=== PATIENT | male | born 1955 | race Caucasian/White ===

== ENCOUNTER 2023-04-10 18:23 | Inpatient (IN) ==
--- OUTSIDE RECORDS SUMMARY | 2023-04-10 18:30 | External Medical Summary | Summary of Care ---
Author Name Unknown Organization [facility] Address [address] [facility] [place] [address] Phone [phone] Care Team Providers Care Track Production Engineer Name Role Phone Isak August DO Primary Care Provider Reason for Visit * Reason Comments Fever Pt began with fever up to 103.5 yesterday. Cough and SOB present and irritated throat per pt. X 1-2 days ago. Pt questions if related to getting his Zemeta infusion on 04/02/2023. Encounter Details Date Type Department Care Team (Latest Contact Info) Description 04/08/2023 11:20 AM EST Office Visit Family Practice [facility] [address] [facility] [place] [address] Isak August DO [address] [facility] [place] [address] Person under investigation for COVID-19*; Bronchitis, complicated; Diabetes mellitus without complication (HCC); HTN, goal below 140/90; Metastatic castration-sensitive adenocarcinoma of prostate Allergies Active Allergy Reactions Criticality Noted Date Comments Erythromycin Other (Please comment) 11/14/1997 Swelling and redness of arms after Erythromycin IV for pneumonia Hydrochlorothiazide Other (Please comment) 06/17/2017 Gout flare Indomethacin Other (Please comment) 11/17/2017 [place] out of body when taking. Influenza Virus Vacc 01/29/2011 Had flu like reaction after taking it. documented as of this encounter (statuses as of 04/08/2023) Medications Medication Sig Dispensed Refills Start Date End Date Status Zoledronic Acid 4 MG/100ML Intravenous Solution Administer 4 mg intravenously once. 0 Active Naproxen 500 MG Oral Tablet (Naprosyn)Indication s:Right flank pain Take 1 Tablet by mouth 2 times a day as needed (pain). 40 Tablet 1 07/03/2022 Active Rosuvastatin Calcium 40 MG Oral Tablet (Crestor)Indications :Dyslipidemia, goal LDL below 100 Take 1 Tablet by mouth in the morning. 90 Tablet 3 10/29/2022 Active Lisinopril 40 MG Oral Tablet Take 1 Tablet by mouth in the morning. 90 Tablet 3 10/29/2022 Active Carvedilol 3.125 MG Oral Tablet (Coreg)Indications:H TN, goal below 140/90 Take 1 Tablet by mouth in the morning and 1 Tablet before bedtime. With food.. 180 Tablet 3 10/29/2022 Active Allopurinol 300 MG Oral Tablet (Zyloprim)Indication s:Idiopathic chronic gout of foot without tophus, unspecified laterality Take 1 Tablet by mouth in the morning. 90 Tablet 3 10/29/2022 Active Albuterol Sulfate HFA 108 (90 Base) MCG/ACT Inhalation Aerosol SolutionIndications: Asthma, allergic, unspecified asthma severity, uncomplicated USE 2 INHALATIONS EVERY 4-6 HOURS NEEDED for asthma 54 g 1 10/29/2022 Active Montelukast Sodium 10 MG Oral Tablet (Singulair)Indicatio ns:Mild intermittent extrinsic asthma without complication Take 1 Tablet by mouth in the morning. 90 Tablet 3 12/05/2022 Active Erleada 60 MG Oral Tablet (Apalutamide)Indicat ions:Metastatic castration-sensitive adenocarcinoma of prostate TAKE 4 TABLETS (240 MG) DAILY. TAKE WITH OR WITHOUT FOOD 120 Tablet 5 12/25/2022 Active Silodosin 8 MG Oral Capsule (Rapaflo) Take 1 Capsule by mouth in the morning. 30 Capsule 6 12/25/2022 Active documented as of this encounter (statuses as of 04/08/2023) Active Problems Problem Noted Date Diagnosed Date Metastatic castration-sensitive adenocarcinoma o f prostate 01/09/2022 Bone lesion 10/29/2021 Slowing of urinary stream 10/29/2021 Diabetes mellitus without complication 9 Idiopathic chronic gout of foot without tophus 0 08/10/2017 Other seasonal allergic rhinitis 12/18/2014 BMI 37.0-37.9, adult 10/30/2009 Overview: 262 lb Dyslipidemia, goal LDL below 100 07/25/2009 FAMILY HX OF PANCREATIC CANCER-father 06/13/2006 ADVANCE DIRECTIVE INFORMATION 08/13/2005 Overview: No, Advance Directive brochure given to patient at prior appointment. DEVIATED NASAL SEPTUM 07/02/2005 Dyspnea and respiratory abnormality 06/25/2005 Overview: ICD-10 update of inactive term HTN, goal below 140/90 09/08/2000 documented as of this encounter (statuses as of 04/08/2023) Resolved Problems Problem Noted Date Diagnosed Date Resolved Date Elevated prostate specific antigen (PSA) 10/29/2021 05/29/2022 Prediabetes 07/01/2017 01/29/2019 Overview: Per Prediabetes protocol #1 Gout 06/09/2012 11/21/2020 Dyslipidemia, goal to be determined 05/01/2009 07/25/2009 Overview: Per Lipid Taxonomy. ALLERGIC RHINITIS NOS 06/25/20052014 Chronic rhinitis 04/11/2001 06/25/2005 Mixed dyslipidemia 9 Overview: Per Lipid Taxonomy. TOBACCO USE DISORDER - chew 06/15/2007 documented as of this encounter (statuses as of 04/08/2023) Immunizations Name Administration Dates Next Due Seasonal Influenza, Split, IIV3, With Preserve, Inj 04/08/2001 TD - Tetanus/Diptheria (ADULT) 09/08/2000 TDAP (age 10 and older)(Boostrix) 02/04/2020 02/03/2030 TDAP (age 11 and older)(Adacel) 01/26/2010 documented as of this encounter Social History Tobacco Use Types Packs/Day Years Used Date Smoking Tobacco: Former Cigarettes 4 Q uit: 05/19/1979 Smokeless Tobacco: Former Chew Quit: 04/09/2005 Comments:Quit chew 04-09-05. Smoked cigarettes for 4 yrs. quit in 1979 Alcohol Use Standard Drinks/Week Comments No 0 (1 standard drink = 0.6 oz pur e alcohol) PHQ-2 Answer Date Recorded PHQ Adult Total Score 0 12/05/2022 Sex and Gender Information Value Date Recorded Sex Assigned at Not on file Gender Identity Not on file Sexual Orientation Not on file Job Start Date Occupation Industry Not on file Not on file Not on file documented as of this encounter Last Filed Vital Signs Vital Sign Reading Time Taken Comments Blood Pressure - - Pulse 125 04/08/2023 11:12 AM EST Temperature 38.6 C (101.5 F) 04/08/2023 11:12 AM EST Respiratory Rate 24 04/08/2023 11:12 AM EST Oxygen Saturation 94% 04/08/2023 11:12 AM EST Inhaled Oxygen Concentration - - Weight 120.2 kg (265 lb) 04/08/2023 11:12 AM EST Height - - Body Mass Index 38.02 04/02/2023 2:11 PM EST documented in this encounter Progress Notes * Isak August, - 04/08/2023 11:18 AM EST Images from the original note were not included. Assessment and Plan Person under investigation for COVID-19 Acute respiratory infection with cough, SOB and fevers Slightly depressed/suppressed O2 sats Will get CXR as well to r/o acute pneumonia - XR CHEST 2 VIEWS Bronchitis, complicated - XR CHEST 2 VIEWS Diabetes mellitus without complication (HCC) Stable Due for f/u labs per routine HTN, goal below 140/90 stable Metastatic castration-sensitive adenocarcinoma of prostate Ongoing monitoring History of Present Illness Mikhail Ryo is a 67 year old male that presents for Fever (Pt began with fever up to 103.5 yesterday. Cough and SOB present and irritated throat per pt. X 1-2 days ago. Pt questions if related togetting his Zemeta infusion on 04/02/2023.) Acute URI/flu type symptoms For the last few days No home testing performed Cough/SOB Physical Exam Vitals: 04/08/23 1112 Temp: (!) 38.6 C (101.5 F) Pulse: 125 Resp: 24 SpO2: 94% Physical Exam Constitutional: Appearance: Normal appearance. HENT: Head: Normocephalic and atraumatic. Right Ear: Ear canal and external ear normal. Left Ear: Ear canal and external ear normal. Nose: Mucosal edema, congestion and rhinorrhea present. Eyes: Extraocular Movements: Extraocular movements intact. Conjunctiva/sclera: Conjunctivae normal. Pupils: Pupils are equal, round, and reactive to light. Cardiovascular: Rate and Rhythm: Normal rate and regular rhythm. Heart sounds: No murmur heard. No friction rub. No gallop. Pulmonary: Effort: Pulmonary effort is normal. No tachypnea, respiratory distress or retractions. Breath sounds: Transmitted upper airway sounds present. Wheezing present. Abdominal: General: Abdomen is flat. Bowel sounds are normal. Palpations: Abdomen is soft. Musculoskeletal: General: Normal range of motion. Cervical back: Neck supple. Lymphadenopathy: Cervical: Cervical adenopathy present. Skin: General: Skin is warm. Neurological: General: No focal deficit present. Mental Status: He is alert and oriented to person, place, and time. Psychiatric: Mood and Affect: Mood normal. Behavior: Behavior normal. Wrap-Up Time: Total time today was 40 minutes excluding any time spent in the performance of separately billed services. documented in this encounter Plan of Treatment Upcoming Encounters Date Type Department Care Team (Late st Contact Info) Description 04/30/2023 2:00 PM EST Laboratory Laboratory [facility] [place] [address] [place] [id number] [place], Lab [address] [place] [id number] 04/30/2023 3:00 PM EST Hem/Onc Treatment Hematology/Oncology Treatment, [place] [address] [place] [address] Subha, Chair [address] Hem Onc Scen[address] [place] [address] 05/28/2023 2:00 PM EST Laboratory Laboratory [facility] [place] [address] [place] [id number] [place], Lab Scenery [address] [place] [address] [id number] 05/28/2023 3:00 PM EST Hem/Onc Treatment Hematology/Oncology Treatment, [place] [address] [place], [place] [address] Subha, Chair [address] Hem Onc Scenery [address] [place] [address] 06/09/2023 9:00 AM EST Office Visit Family Practice [facility] [address] [facility] [place] [address] Lakisha Mclain CRNP [address] [place] [address] 07/02/2023 10:15 AM EST Office Visit Urology, [facility] [address] [facility] [place] [address] Erik Benitez MD [address] [facility] [address] [place] [address] 12/11/2023 8:20 AM EDT Office Visit [facility] [address] [facility] [place] [address] Isak August DO [address] [facility] [place] [address] Pending Results Name Type Priority Associated Diagnoses Date /Time XR CHEST 2 VIEWS Medical Imaging STAT Person under investigation for COVID-19 Bronchitis, complicated 04/08/2023 11:38 AM EST INFLUENZA A/B RSV SARS-COV2,PCR Lab Routine Person under investigation for COVID-19 04/08/2023 11:55 AM EST Scheduled Orders Name Type Priority Associated Diagnoses Orde r Schedule INFLUENZA A/B RSV SARS-COV2,PCR Lab Routine Person under investigation for COVID-19 Expected: 04/08/2023 (Approximate), Expires: 04/07/2024 Health Maintenance Due Date Last Done Comments COVID-19 Vaccine (#1) 1960 Pneumococcal Vaccine: 65+ Years (1 - PCV) 08/27/1963 Zoster Vaccines (1 of 2) 1976 Cologuard 2002 Colonoscopy 2002 Fecal Occult Blood Test 2002 Sigmoidoscopy 2002 Hepatitis B (1 of 3 - Risk 3-dose series) 2017 AAA Screening 2022 Albumin/Creatinine Ratio 05/29/2023 05/29/2022 HbA1c 06/13/2023 12/11/2022, 05/19, 10/23/2021, Additional history exists Diabetic Eye Exam 08/01/2023 07/31/2022, , 05/04/2019 Depression Screening 12/06/2023 12/05/2022 Diabetic Foot Exam 12/06/2023 12/05/2022, 0 12/05/2022, 11/22/2021, Additional history exists GFR 04/02/2024 04/02/2023, 02/16, 02/05/2023, Additional history exists Lipid Panel 08/22/2027 08/21/2022, 05/19, 10/23/2021, Additional history exists DTaP,Tdap,and Td Vaccines (3 - Td or Tdap) 02/03/2030 02/04/2020, 01/26/2010, 09/08/2000 Colorectal Cancer Screening Discontinued GARDASIL-HPV IMMUNIZATION SERIES Aged Out No longer eligible based on patient's age to complete this topic MENINGOCOCCAL (MENACTRA/MENVEO) Aged Out No longer eligible based on patient's age to complete this topic documented as of this encounter Medical Devices Not on filedocumented as of this encounter Visit Diagnoses Diagnosis Person under investigation for COVID-19- Primary Bronchitis, complicated Bronchitis, not specified as acute or chronic Diabetes mellitus without complication (HCC) Type II or unspecified type diabetes mellitus without mention of complication, not stated as uncontrolled HTN, goal below 140/90 Unspecified essential hypertension Metastatic castration-sensitive adenocarcinoma of prostate documented in this encounter Care Teams Track Production Engineer Relationship Specialty Start Date End Date Isak August DO [address] [place] [address] PCP - General Family Medicine 11/21/20 documented as of this encounter
--- OUTSIDE RECORDS SUMMARY | 2023-04-10 18:30 | External Medical Summary ---
Author Name Unknown Address Unknown Organization [id number] [address] [place] [address] Laboratory Report Ordering Provider Test Date Status SLIM KAYE 04/08/2023 11:55:12 Final Observation Date Value Abnormality Reference (Units ) Status SARS Coronavirus 2 04/08/2023 11:55:12 Negative N egative Final No SARS-CoV2 Coronavirus RNA detected by PCR (amplified probe).
This express test was developed and its performance characteristics determined by [facility]. It has not been cleared or approved by the U.S. Food and Drug Administration (FDA). FDA does not require this test to go thru premarket FDA review. This test is used for clinical purposes. It should not be regarded as investigational or for research. This laboratory is certified under the Clinical Laboratory Improvement Amendments (CLIA) as qualified to perform high complexity clinical laboratory testing.

This test is a nucleic acid amplification test (NAAT), a reverse transcriptase polymerase chain reaction (RT-PCR) test, or a Centers for Disease Control-acceptable equivalent. The test is performed in a high complexity Clinical Laboratory Improvement Amendments-(CLIA) certified laboratory. The test is acceptable for SARS-CoV-2 diagnosis, surveillance, and travel within the [place] and to most countries. Please check with local testing authorities about requirements before travel.

The validation of bronchial specimens, tracheal aspirates, and sputum for this assay was developed and performance characteristics determined by [facility]. The validation of alternate specimen types has not been cleared or approved by the U.S. Food and Drug Administration (FDA). It has been determined that such clearance is not necessary. Influenza virus A RNA [Prese nce] in Specimen by [facility] with probe detection 04/08/2023 11:55:12 Negative Negative Final No Influenza A RNA detected by PCR (amplified probe) Influenza virus B RNA [Prese nce] in Specimen by [facility] with probe detection 04/08/2023 11:55:12 Negative Negative Final No Influenza B RNA detected by PCR (amplified probe) Respiratory syncytial virus RNA [Identifier] in Specimen by [facility] with probe detection 04/08/2023 11:55:12 Negative Negative Final No Respiratory Syncytial Vir us RNA detected by PCR (amplified probe) Performing Location [facility] [address] [place] [place] [address]
--- OUTSIDE RECORDS SUMMARY | 2023-04-10 18:30 | External Medical Summary | Summary of Care ---
Author Name Unknown Organization [facility] Address [address] [facility] [place] [address] Phone [phone] Care Team Providers Care Briquetting Machine Operator Name Role Phone Isak August Primary Care Provider Reason for Visit * Reason Comments Chemotherapy Chemo/recheck Encounter Details Date Type Department Care Team (Late st Contact Info) Description 04/02/2023 2:15 PM EST Office Visit Hematology/Oncology [facility] [address] [facility] [place] [address] Cecy Skinner MD [address] [facility] [place] [address] Metastatic castration-sensitive adenocarcinoma of prostate * Allergies Active Allergy Reactions Criticality Noted Date Comments Erythromycin Other (Please comment) 11/14/1997 Swelling and redness of arms after Erythromycin IV for pneumonia Hydrochlorothiazide Other (Please comment) 06/17/2017 Gout flare Indomethacin Other (Please comment) 11/17/2017 Mcgrann out of body when taking. Influenza Virus Vacc 01/29/2011 Had flu like reaction after taking it. documented as of this encounter (statuses as of 04/02/2023) Medications Medication Sig Dispensed Refills Start Date End Date Status Zoledronic Acid 4 MG/100ML Intravenous Solution Administer 4 mg intravenously once. 0 Active Naproxen 500 MG Oral Tablet (Naprosyn)Indicatio ns:Right flank pain Take 1 Tablet by mouth 2 times a day as needed (pain). 40 Tablet 1 3 Active Rosuvastatin Calcium 40 MG Oral Tablet (Crestor)Indication s:Dyslipidemia, goal LDL below 100 Take 1 Tablet by mouth in the morning. 90 Tablet 3 3 Active Lisinopril 40 MG Oral Tablet Take 1 Tablet by mouth in the morning. 90 Tablet 3 3 Active Carvedilol 3.125 MG Oral Tablet (Coreg)Indications: HTN, goal below 140/90 Take 1 Tablet by mouth in the morning and 1 Tablet before bedtime. With food.. 180 Tablet 3 3 Active Allopurinol 300 MG Oral Tablet (Zyloprim)Indicatio ns:Idiopathic chronic gout of foot without tophus, unspecified laterality Take 1 Tablet by mouth in the morning. 90 Tablet 3 3 Active Albuterol Sulfate HFA 108 (90 Base) MCG/ACT Inhalation Aerosol SolutionIndications :Asthma, allergic, unspecified asthma severity, uncomplicated USE 2 INHALATIONS EVERY 4-6 HOURS NEEDED for asthma 54 g 1 3 Active Montelukast Sodium 10 MG Oral Tablet (Singulair)Indicati ons:Mild intermittent extrinsic asthma without complication Take 1 Tablet by mouth in the morning. 90 Tablet 3 3 Active Erleada 60 MG Oral Tablet (Apalutamide)Indica tions:Metastatic castration-sensitiv e adenocarcinoma of prostate TAKE 4 TABLETS (240 MG) DAILY. TAKE WITH OR WITHOUT FOOD 120 Tablet 5 3 Active Silodosin 8 MG Oral Capsule (Rapaflo) Take 1 Capsule by mouth in the morning. 30 Capsule 6 3 Active Tamsulosin HCl 0.4 MG Oral Capsule (Flomax) Take 1 Capsule by mouth in the morning. 90 Capsule 3 3 04/02/20 23 Discontinu ed(Medicat ion List Clean Up) glipiZIDE 5 MG Oral Tablet (Glucotrol)Indicati ons:Bronchitis, complicated Take 1 Tablet by mouth in the morning. 30 minutes before a meal.. 5 Tablet 0 3 04/02/20 23 Discontinu ed(Medicat ion List Clean Up) documented as of this encounter (statuses as of 04/02/2023) Active Problems Problem Noted Date Diagnosed Date [...] as of this encounter (statuses as of 04/02/2023) Resolved Problems Problem Noted Date Diagnosed Date [...] as of this encounter (statuses as of 04/02/2023) Immunizations Name Administration Dates Next Due TDAP (age 10 and older)(Boostrix) 02/04/2020 02/03/2030 TDAP (age 11 and older)(Adacel) 01/26/2010 documented as of this encounter Social History Tobacco Use Types Packs/Day Years Used Date Smoking Tobacco: Former Cigarettes 4 Q uit: 05/19/1979 Smokeless Tobacco: Former Chew Quit: 04/09/2005 Tobacco Cessation:Counseling Given: Not Answered Comments:Quit chew 04-09-05. Smoked cigarettes for 4 [...] Sign Reading Time Taken Comments Blood Pressure 126/84 04/02/2023 2:11 PM EST Pulse 95 04/02/2023 2:11 PM EST Temperature 36.8 C (98.2 F) 04/02/2023 2:11 PM ES T Respiratory Rate 16 04/02/2023 2:11 PM EST Oxygen Saturation 95% 04/02/2023 2:11 PM EST Inhaled Oxygen Concentration - - Weight 121.8 kg (268 lb 9.6 oz) 04/02/2023 2:11 PM EST Height 177.8 cm (5' 10") 04/02/2023 2:11 PM EST Body Mass Index 38.54 04/02/2023 2:11 PM EST documented in this encounter Progress Notes * Cecy Skinner MD - 04/02/2023 2:37 PM EST Outpatient Consult Note Data Source: Patient, Epic record. Data Source: Patient, Epic record. 04/02/2023 2:37 PM Mikhail Rosario Kirill [id number] 67 year old Patient Encounter: HEMATOLOGY/ONCOLOGY [facility] Cancer Diagnosis: Prostate cancer with elevated PSA. Patient has metastatic castration sensitive disease. Current Treatment: Eligard plus apalutamide and Zometa. Apalutamide was started on 02/25/2022 Previous Treatment: Casodex and Eligard Oncologic History : 67-year-old male recently presented with complaint of increasing back pain for last 3-4 weeks. Patient has history of chronic back pain which got worse recently. His job is associated with heavy lifting and causes back pain as well, therefore he tended to ignore it over time. He has taken Naproxyn. Denies any dizziness, blurred vision, chest pain, shortness breath palpitation abdominal pain or distention bleeding, bruising, nausea, vomiting, weakness or numbness in the lower extremity, fever, night sweats, weight loss, hematuria, hematochezia. A CT scan of the abdomen pelvis done on 10/23/2021 which revealed mildly prominent prostate, scattered sclerotic lesions, which may represent bone metastases. PSA level was 195.20 Patient was seen by Dr. Benitez from Urology. Dr. Benitez also started him on Casodex. PET scan done on 10/31/2021 which revealed sclerotic lesion in the right ilium demonstrates low-grade metabolic activity with an SUV max of 4.7. The sclerotic lesions in the T10 and L1 vertebral bodies demonstrates background metabolic activity with SUV max of 3.5. There is a sclerotic lesion in the posterior right 6th rib with background metabolic activity. Biopsy from the prostate is consistent for prostatic adenocarcinoma Gallant score 3+4=7 A Left base 1 1.6 Prostatic adenocarcinoma cribriform 3+4=7(4:40%) B Left mid 1 2.2 Prostatic adenocarcinoma 3+4=7(4:30%) C Left apex 1 2.2 Prostatic adenocarcinoma; minor cribriform pattern 3+4=7(4:20%) D Right base 1 1.5 Prostatic adenocarcinoma 4+3=7 (4:70%) 80% E Right mid 1 1.5 Prostatic adenocarcinoma 4+3=7 (4:85%) F Right apex 1 1.8 Benign, acute inflammation CORES with CARCINOMA = 5 (5/6) cores He also received a dose of Lupron on 11/28/2021. Patient denies smoking. He drinks socially. Family history significant for father was diagnosed pancreatic cancer. Brother was diagnosed of prostate cancer. He was also seen by the Radiation Oncology and plan was to follow the patient clinically and continue with current treatment. Bone scan was done on 12/12/2021 which again revealed multiple foci of abnormal radiotracer uptake consistent with osteoblastic metastatic disease. Interval History: He continue taking apalutamide with good tolerance and without any significant side effects toxicity. Overall clinically he is doing well without any new symptoms. Patient denies any headache, dizziness, blurred vision, chest pain, shortness breath palpitation abdominal pain or distention, bleeding, bruising, nausea, vomiting, fever, night sweats, weight loss, hematuria, hematochezia. LABS/IMAGING: Results for orders placed or performed in visit on 04/02/23 COMPREHENSIVE METABOLIC PANEL Result Value Ref Range BUN 17 6 - 20 mg/dL Creatinine 0.8 0.6 - 1.2 mg/dL Estimated Glomerular Filtration Rate >90 >=60 mL/min Sodium 135 135 - 146 mmol/L Potassium 4.5 3.5 - 5.1 mmol/L Chloride 97 (L) 98 - 107 mmol/L CO2 27 22 - 32 mmol/L Anion Gap 11 7 - 15 mmol/L Glucose 340 (H) 70 - 120 mg/dL Albumin 4.3 3.8 - 5.0 g/dL AST 27 10 - 50 U/L Alkaline Phosphatase 66 35 - 130 U/L Bilirubin, Total 0.2 <=1.2 mg/dL Calcium 9.8 8.4 - 10.2 mg/dL Protein 6.8 6.0 - 8.3 g/dL ALT 34 10 - 50 U/L CBC Result Value Ref Range WBC 7.17 4.00 - 10.80 K/uL RBC 4.24 4.50 - 5.25 M/uL HGB 12.8 (L) 14.0 - 16.8 g/dL HCT 37.7 (L) 40.0 - 48.4 % MCV 88.9 82.0 - 99.5 fL MCH 30.2 27.0 - 34.0 pg MCHC 34.0 32.0 - 36.0 g/dL RDW 12.4 11.5 - 15.5 % PLT 186 140 - 400 K/uL MPV 11.0 6.6 - 11.1 fL DIFFERENTIAL, AUTOMATED Result Value Ref Range WBC 7.17 4.00 - 10.80 K/uL Neutrophils % 56.0 40.0 - 75.0 % Lymphocytes % 31.9 18.0 - 42.0 % Monocytes % 7.9 1.0 - 11.0 % Eosinophils % 3.6 0.0 - 6.0 % Basophils % 0.6 0.0 - 2.0 % Absolute Neutrophils 4.01 1.80 - 7.70 K/uL Absolute Lymphocytes 2.29 1.00 - 4.80 K/ul Absolute Monocytes 0.57 0.00 - 1.10 K/uL Absolute Eosinophils 0.26 0.00 - 0.70 K/uL Absolute Basophils 0.04 0.00 - 0.20 K/uL All his blood counts are in acceptable range with decreasing PSA level. REVIEW OF SYSTEMS: General: No Fever, chills, night sweats, or weight loss. HEENT: No change in visual acuity, blurred or double vision. No epistaxis, facial pain, nasal discharge or change in hearing. Denies dysphagia, no muscosal ulceration, or sores noted. Cardiovascular: No chest pain, BISHOP, or palpitations Respiratory: No shortness of breath, cough, hemoptysis, or pleuritic chest pain Gastrointestinal: No abdominal pain, nausea, vomiting, diarrhea, rectal pain or bleeding Genitourinary: Denies Hematuria or dysuria Musculoskeletal: No bone pain Psychiatric: No vegetative signs of depression Endocrine: No symptoms of hypothyroidism or hyperglycemia Hematologic: No bleeding or lymph nodes noted As mentioned above, all of the systems were reviewed in full and are unremarkable. No past medical history on file. Current Outpatient Medications Medication Sig Dispense Refill Rosuvastatin Calcium 40 MG Oral Tablet (Crestor) Take 1 Tablet by mouth in the morning. 90 Tablet 3 Zoledronic Acid 4 MG/100ML Intravenous Solution Administer 4 mg intravenously once. Naproxen 500 MG Oral Tablet (Naprosyn) Take 1 Tablet by mouth 2 times a day as needed (pain). 40 Tablet 1 Lisinopril 40 MG Oral Tablet Take 1 Tablet by mouth in the morning. 90 Tablet 3 Carvedilol 3.125 MG Oral Tablet (Coreg) Take 1 Tablet by mouth in the morning and 1 Tablet before bedtime. With food.. 180 Tablet 3 Allopurinol 300 MG Oral Tablet (Zyloprim) Take 1 Tablet by mouth in the morning. 90 Tablet 3 Albuterol Sulfate HFA 108 (90 Base) MCG/ACT Inhalation Aerosol Solution USE 2 INHALATIONS EVERY 4-6HOURS NEEDED for asthma 54 g 1 Montelukast Sodium 10 MG Oral Tablet (Singulair) Take 1 Tablet by mouth in the morning. 90 Tablet 3 Erleada 60 MG Oral Tablet (Apalutamide) TAKE 4 TABLETS (240 MG) DAILY. TAKE WITH OR WITHOUT FOOD 120 Tablet 5 Silodosin 8 MG Oral Capsule (Rapaflo) Take 1 Capsule by mouth in the morning. 30 Capsule 6 No current facility-administered medications for this visit. Facility-Administered Medications Ordered in Other Visits Medication Dose Route Frequency Provider Last Rate Last Admin NSS infusion 500 mL Intravenous Continuous Cecy Skinner MD hEParin 100 UNIT/ML Lock Flush inj 500 Units 5 mL IV Lock PRN Cecy Skinner MD sodium chloride 0.9 % flush central line 10 mL 10 mL IV Push PRN Cecy Skinner MD Zoledronic Acid (Zometa) 4 mg in 100 mL PREMIX ivpb 4 mg IV Piggyback Once Cecy Skinner MD diphenhydrAMINE (Benadryl) inj 50 mg 50 mg IV Push Once PRN Cecy Skinner MD Hydrocortisone Sod Suc (PF) (Solu-Cortef) inj 100 mg 100 mg IV Push Once PRN Cecy Skinner MD EPINEPHrine 1 MG/ML inj 0.3 mg 0.3 mg Intramuscular Once PRN Cecy Skinner MD Social History Tobacco Use Smoking status: Former Years: 4 Types: Cigarettes Quit date: 05/19/1979 Years since quittin.9 Smokeless tobacco: Former Types: Chew Quit date: 04/09/2005 Tobacco comments: Quit chew 04-09-05. Smoked cigarettes for 4 yrs. quit in 1979 Vaping Use Vaping Use: Never used Substance Use Topics Alcohol use: No Drug use: No Review of patient's allergies indicates: Allergen Reactions Erythromycin Other (Please comment) Swelling and redness of arms after Erythromycin IV for pneumonia Hctz [Hydrochlorothiazide] Other (Please comment) Gout flare Indomethacin Other (Please comment) Mcgrann out of body when taking. Influenza Virus Vacc Had flu like reaction after taking it. PHYSICAL EXAMINATION: General Appearance: Healthy appearing patient in no acute distress BP 126/84 (BP Site: Left Arm, BP Position: Sitting, BP Cuff Size: Large) | Pulse 95 | Temp 36.8 C(98.2 F) (Oral) | Resp 16 | Ht 1.778 m (5' 10") | Wt 121.8 kg (268 lb 9.6 oz) | SpO2 95% | BMI 38.54 kg/m | BSA 2.45 m Vitals reviewed. HEENT: No oral or pharyngeal masses, ulceration or thrush noted, no sinus tenderness. Neck is supple with no thyromegaly or JVD noted. Lymph Nodes: No lymphadenopathy noted in the occipital, pre and post auricular, cervical, supra andinfraclavicular, axillary, epitrochlear, inguinal, and popliteal region. Lungs/Thorax: Clear to auscultation, no accessory muscles of respiration being used. Heart: Regular rate and rhythm, normal S1, S2 Abdomen: Soft, nontender, bowel sounds present, no appreciable hepatosplenomegaly, no palpable masses Extremeties: Good pulses bilaterally, no peripheral edema. Skin: Normal skin tone with no rash, petechiae, ecchymosis noted. Musculoskeletal: No pain on palpation over bony prominence, no edema, no evidence of gout, no jointor bony deformity ASSESSMENT: 67-year-old male otherwise healthy presenting with complaint of increasing back pain. He had a CT scan done shows prominent prostate with bone lesion. PSA was high. Biopsy from the prostate is consistent with the adenocarcinoma Gallant score 4+ 3 = 7. PET scan revealed sclerotic lesion nonspecific low-grade to background metabolic activity. Bone scan revealed bone metastasis. Patient was seen by Dr. Benitez and he was started on Lupron and received 1st injection on 11/28/2021. Currently he is receiving combination of apalutamide plus Lupron and Zometa with overall good tolerance. Follow-up bone scan shows improving bone lesion without any evidence of new lesion. PSA continues decreasing and trending downward. Clinically patient is doing well in excellent performance status and physical examination is unremarkable. Discussed patient about diagnosis reviewed all the available blood test result with him. PLAN: Continue current treatment. He will return to clinic for follow-up in 3 months with CBC, CMP and PSA. The patient voiced understanding of all of the above. All questions and concerns were addressed in an apparently satisfactory manner. Cecy Skinner MD (This note was completed using the dictation program Fluency Direct. As such, there may be misspellings, word substitutions, or other variations that should not change the essence of the clinical content of this encounter note. If there is need for further clarification, please direct questions to me.) documented in this encounter Nursing Notes * Radhika August, POTATO PEELING MACHINE OPERATOR - 04/02/2023 2:13 PM EST Patient identifed by name and birthdate Do you have any concerns about pain management for today's visit? No Living Will or Advance Directive for Health Care as noted on the problem list. [facility] is a way you can talk to your provider on line through e-mail. Would you like to sign up? I can activate it for you? ALREADY ACTIVE Filed Vitals: 04/02/23 1411 BP: 126/84 Pulse: 95 Resp: 16 Temp: 36.8 C (98.2 F) TempSrc: Oral SpO2: 95% Weight: 121.8 kg (268 lb 9.6 oz) Height: 1.778 m (5' 10") Patient was instructed to not get up on the exam table/exam chair until directed and assisted by their provider; patient is to remain seated in the chair/ wheelchair/ exam table/ exam chair for fall prevention and safety reasons. Patient is aware to have assistance to step down off exam table/exam chair with personnel. Patient voiced full comprehension of instructions. documented in this encounter Plan of Treatment Upcoming Encounters Date Type Department Care Team (Latest Contact Info) Description 04/02/2023 3:00 PM EST Hem/Onc Treatment [facility] [place] [facility] [address] Subha, Chair 11 Hem Onc [facility] [address] [place] [address] Metastatic castration-sensitive adenocarcinoma of prostate * 04/30/2023 2:00 PM EST Laboratory Laboratory [facility] [place] [address] [place] [id number] Subha, Lab [facility] [address] [place] [address] 04/30/2023 3:00 PM EST Hem/Onc Treatment [facility] [place] [address] [facility] [address] Subha, Chair [address] [facility] [address] [place] [address] 05/28/2023 2:00 PM EST Laboratory Laboratory [facility] [place] [address] [place] [id number] [address] [place] [address] 05/28/2023 3:00 PM EST Hem/Onc Treatment Hematology/Oncolog y Treatment, [place] [address] [place] [address] Subha, Chair 11 Hem Onc [address] [place] [address] 06/09/2023 9:00 AM EST Office Visit [facility] [address] [facility] [place] [address] Lakisha Mclain CRNP [address] [place] [address] 07/02/2023 10:15 AM EST Office [facility], [facility] [place] [address] Erik Benitez MD [address] [facility] [address] [place] [address] 12/11/2023 8:20 AM EDT Office Visit [facility] [address] [facility] [place] [address] Isak August DO [address] [place] [address] Scheduled Orders Name Type Priority Associated Diagnoses Orde r Schedule CBC WITH WBC DIFFERENTIAL Lab Routine Metastatic castration-sensitive adenocarcinoma of prostate Expected: 06/30/2023, Expires: 02/10/2024 COMPREHENSIVE METABOLIC PANEL Lab Routine Metastatic castration-sensitive adenocarcinoma of prostate Expected: 06/30/2023, Expires: 02/10/2024 PSA Lab Routine Metastatic castration-sensitive adenocarcinoma of prostate Expected: 06/30/2023, Expires: 02/10/2024 Health Maintenance Due Date Last Done Comments [...] as of this encounter Visit Diagnoses Diagnosis Metastatic castration-sensitive adenocarcinoma of prostate- Primary Metastatic castration-sensitive adenocarcinoma of prostate- Primary documented in this encounter Care Teams Briquetting Machine Operator Relationship Specialty Start Date End Date Isak August DO [address] [place] [address] PCP - General Family Medicine 11/21/20 documented as of this encounter
--- OUTSIDE RECORDS SUMMARY | 2023-04-10 18:30 | External Medical Summary | Summary of Care ---
Author Name Unknown Organization [facility] Address [address] [facility] [place] [address] Phone [phone] Care Team Providers Care Notcher Name Role Phone Isak August DO Primary [...] 11:20 AM EST Office Visit [facility] [place] [address] Isak August DO [address] [facility] [place] [address] Person under investigation for COVID-19*; Bronchitis, complicated; Diabetes mellitus without complication (HCC); HTN, goal below 140/90; Metastatic castration-sensitive adenocarcinoma of prostate Allergies Active Allergy Reactions Criticality Noted Date Comments Erythromycin Other (Please comment) 11/14/1997 Swelling and redness of arms after Erythromycin IV for pneumonia Hydrochlorothiazide Other (Please comment) 06/17/2017 Gout flare Indomethacin Other (Please comment) 11/17/2017 Page out of body when taking. Influenza Virus [...] Ongoing monitoring History of Present Illness Mikhail Roy is a 67 year old male that [...] Description 04/30/2023 2:00 PM EST Laboratory Laboratory [facility] [place] [address] [place] [id number] [place], [address] [place] [address] 04/30/2023 3:00 PM EST Hem/Onc Treatment Hematology/Oncology Treatment, [place] [address] [place] [address] Subha, Chair 11 Hem Onc [address] [place] [address] 05/28/2023 2:00 PM EST Laboratory Laboratory [facility] [place] [address] [place] [phone] [place], [facility] [address] [place] [address] [address] 05/28/2023 3:00 PM EST Hem/Onc Treatment Hematology/Oncology Treatment, [place] [address] [place], [place] [address] Subha, Chair 11 Hem Onc [place] [address] [place] [address] 06/09/2023 9:00 AM EST Office Visit Family Practice [facility] [address] [facility] [place] [address] Lakisha Mclain CRNP [address] [place] [address] 07/02/2023 10:15 AM EST Office Visit [facility], [facility] [place] [address] Erik [facility]itez MD [address] [facility] [address] [place] [address] 12/11/2023 8:20 AM EDT Office Visit [facility] [address] [facility] [place] [address] Isak August DO [address] [facility] [place] [address] Pending Results Name Type Priority Associated Diagnoses [...] prostate documented in this encounter Care Teams Notcher Relationship Specialty Start Date End Date Isak August DO [address] [place] [address] PCP - General Family Medicine 11/21/20 documented as of this encounter
--- OUTSIDE RECORDS SUMMARY | 2023-04-10 18:30 | External Medical Summary | Summary of Care ---
Author Name Unknown Organization [facility] Address [address] [place] [address] Phone [phone] Care Team Providers Care Picker / Packer Name Role Phone Michelet Augustthom Mcneilevelyn Primary Care Provider Reason for Visit * Reason Comments Infusion Zometa * Episode Based Medications (Routine) - Authorized Specialty Diagnoses / Procedures Referred By Contac t Referred To Contact Diagnoses Metastatic castration-sensitive adenocarcinoma of prostate Procedures [place] ZOLEDRONIC ACID 1MG Cecy Skinner MD [address] [place] [address] Anc Hem/Onc Leonel Mascorro DEPT CLOSED - 04/01/23 [address] [place] [phone] Referral ID Status Reason Start Date Expiration Date V isits Requested Visits Authorized [id number] Authorized 01/14/2022 05/18/2099 99 99 Encounter Details Date Type Department Care Team (Latest Contact Info) Description 04/02/2023 3:00 PM EST Hem/Onc Treatment Hematology/Oncolog y Treatment, [place] [address] [place] [address] Subha, Chair 11 Hem Onc Scenery [address] [place] [address] Metastatic castration-sensitive adenocarcinoma of prostate * Allergies Active Allergy Reactions Criticality Noted Date Comments Erythromycin Other (Please comment) 11/14/1997 Swelling and redness of arms after Erythromycin IV for pneumonia Hydrochlorothiazide Other (Please comment) 06/17/2017 Gout flare Indomethacin Other (Please comment) 11/17/2017 [place] out of body when taking. Influenza Virus [...] Sign Reading Time Taken Comments Blood Pressure 118/80 04/02/2023 4:20 PM EST Pulse 88 04/02/2023 4:20 PM EST Temperature 37 C (98.6 F) 04/02/2023 4:20 PM EST Respiratory Rate 18 04/02/2023 4:20 PM EST Oxygen Saturation 94% 04/02/2023 4:20 PM EST Inhaled Oxygen Concentration - - Weight - - Height - - Body Mass Index - - documented in this encounter Nursing Notes * Brittany Greene LPN - 04/02/2023 4:21 PM EST 1500: Pt arrived for Zometa infusion. PIV in R metacarpal. Pt tolerated well. VSS. Andreas WNL. Pt has no complaints at this time. 1525: Pt tolerated Zometa infusion well. PIV removed intact. Pt to return in 4 weeks. Discharged instable condition. documented in this encounter Plan of Treatment Upcoming Encounters Date Type Department Care Team (Late st Contact Info) Description 04/30/2023 2:00 PM EST Laboratory Laboratory [facility] Subha [place] [address] [facility] [place] [phone] [place] [address] [address] [facility] [place] [address] 04/30/2023 3:00 PM EST Hem/Onc Treatment Hematology/Oncology Treatment, [place] [address] [place] [address] Subha, Chair 11 Hem Onc Scenery [address] [place], [place] [address] 05/28/2023 2:00 PM EST Laboratory [facility] [place] [address] [place] [phone] Subha, Lab Scenery [address] [place], [place] [address] 05/28/2023 3:00 PM EST Hem/Onc Treatment Hematology/Oncology Treatment, [place] [address] [facility], [place] [address] Subha, Chair 11 Hem Onc Scenery [address] [place], [place] [address] 06/09/2023 9:00 AM EST Office Visit [facility] [address] [place] [id number] Lakisha Mclain CRNP [address] [place] [address] 07/02/2023 10:15 AM EST Office Visit Urology, [facility] [address] [place] [address] Erik Benitez MD [address] [facility] [address] [place] [address] 12/11/2023 8:20 AM EDT Office Visit [facility] [address] [place] [address] Isak August DO [address] [place] [address] Health Maintenance Due Date Last Done Comments [...] Diagnosis Metastatic castration-sensitive adenocarcinoma of prostate- Primary documented in this encounter Administered Medications Active Administered Medications - up to 3 most recent administrations Medication Order MAR Action Action Date Dose Rate Site diphenhydrAMINE (Benadryl) inj 50 mg 50 mg, IV Push, ONCE PRN Other, Hypersensitivity Reaction, Starting on Fri04/02/23 at 1430, Until Esme 04/03/23 at 1429, For 24 hours EPINEPHrine 1 MG/ML inj 0.3 mg 0.3 mg, Intramuscular, ONCE PRN Other, Hypersensitivity Reaction or Anaphylaxis, Starting on Fri04/02/23 at 1430, Until Esme 04/03/23 at 1429, For 24 hours hEParin 100 UNIT/ML Lock Flush inj 500 Units 500 Units (5 mL), IV Lock, PRN Other, IV Flush, Starting on Fri04/02/23 at 1430, Until Fri04/03/23 at 1429, For 24 hours, Do not flush if lock, PICC, or central line not in place; IV infusing or unable to flush. Hydrocortisone Sod Suc (PF) (Solu-Cortef) inj 100 mg 100 mg, IV Push, ONCE PRN Other, Hypersensitivity Reaction, Starting on Fri04/02/23 at 1430, Until Esme 04/03/23 at 1429, For 24 hours NSS infusion 500 mL, Intravenous, at 50 mL/hr, CONTINUOUS, Starting on Fri04/02/23 at 1545, Until Fri04/03/23 at 0144 Start Infusion 04/02/2023 3:02 PM EST 500 mL 50 mL/hr sodium chloride 0.9 % flush central line 10 mL 10 mL, IV Push, PRN Other, IV Flush, Starting on Fri04/02/23 at 1430, Until Fri04/03/23 at 1429, For 24 hours, Do not flush if lock, PICC, or central line not in place; IV infusing or unable to flush. Inactive Administered Medications - up to 3 most recent administrations Medication Order MAR Action Action Date Dose Rate Site Zoledronic Acid (Zometa) 4 mg in 100 mL PREMIX ivpb 4 mg, IV Piggyback, ONCE, 1 dose, On Fri04/02/23 at 1545 Start Infusion 04/02/2023 3:05 PM EST 4 mg 400 mL/hr documented in this encounter Care Teams Picker / Packer Relationship Specialty Start Date End Date Isak August DO [address] [place] [address] PCP - General Family Medicine 11/21/20 documented as of this encounter
--- OUTSIDE RECORDS SUMMARY | 2023-04-10 18:31 | External Medical Summary | Summary of Care ---
Author Name Unknown Organization [facility] Address [address] [facility] [place] [address] Phone [phone] Care Team Providers Care Information Officer Name Role Phone Isak August Primary Care Provider Reason for Visit * Reason Comments Chemotherapy Chemo/recheck - Revi ew scans Encounter Details Date Type Department Care Team Description 01/08/2023 Office Visit Hematology/Oncology Leonel Mascorro [place] [address] [facility] [place] [address] Cecy Skinner MD [address] [facility] [place] [address] 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)* Allergies Active Allergy Reactions Severity Noted Date Comments Erythromycin Other (Please comment) 11/14/1997 Swelling and redness of arms after Erythromycin IV for pneumonia Hydrochlorothiazide Other (Please comment) 06/17/2017 Gout flare Indomethacin Other (Please comment) 11/17/2017 [place] out of body when taking. Influenza Virus Vacc 01/29/2011 Had flu like reaction after taking it. documented as of this encounter (statuses as of 01/08/2023) Medications Medication Sig Dispensed Refills Start Date [...] for asthma 54 g 1 10/29/2022 Active Tamsulosin HCl 0.4 MG Oral Capsule (Flomax) Take 1 Capsule by mouth in the morning. 90 Capsule 3 10/30/2022 Active Montelukast Sodium 10 MG Oral Tablet (Singulair)Indicatio ns:Mild intermittent extrinsic asthma without complication Take 1 Tablet by mouth in the morning. 90 Tablet 3 12/05/2022 Active Erleada 60 MG Oral Tablet (Apalutamide)Indicat ions: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) TAKE 4 TABLETS (240 MG) DAILY. TAKE WITH OR WITHOUT FOOD 120 Tablet 5 12/25/2022 Active Silodosin 8 MG Oral Capsule (Rapaflo) Take 1 Capsule by mouth in the morning. 30 Capsule 6 12/25/2022 Active documented as of this encounter (statuses as of 01/08/2023) Active Problems Problem Noted Date Metastatic castration-sensitive adenocar cinoma of prostate 01/09/2022 Bone lesion 10/29/2021 Slowing of urinary stream 10/29/2021 Diabetes mellitus without complication 0 12/30/2018 Idiopathic chronic gout of foot without tophus 08/10/2017 Other seasonal allergic rhinitis 015 BMI 37.0-37.9, adult 10/30/2009 Overview: 262 lb Dyslipidemia, goal LDL below 100 010 FAMILY HX OF PANCREATIC CANCER-father ADVANCE DIRECTIVE INFORMATION 08/13/2005 Overview: No, Advance Directive brochure given to patient at prior appointment. DEVIATED NASAL SEPTUM 07/02/2005 Dyspnea and respiratory abnormality 11/2005 Overview: ICD-10 update of inactive term HTN, goal below 140/90 09/08/2000 documented as of this encounter (statuses as of 01/08/2023) Resolved Problems Problem Noted Date Resolved Date Elevated prostate specific antigen (PSA) 022 05/29/2022 Prediabetes 07/01/2017 01/29/2019 Overview: Per Prediabetes protocol #1 Gout 06/09/2012 11/21/2020 Dyslipidemia, goal to be determined 05/01/2009 07/25/2009 Overview: Per Lipid Taxonomy. ALLERGIC RHINITIS NOS 06/25/2005 12/18/2014 Chronic rhinitis 04/11/2001 06/25/2005 Mixed dyslipidemia 05/01/2009 Overview: Per Lipid Taxonomy. TOBACCO USE DISORDER - chew 05/20 documented as of this encounter (statuses as of 01/08/2023) Immunizations Name Administration Dates Next Due TDAP [...] drink = 0.6 oz pur e alcohol) Sex Assigned at Date Recorded Not on file Job Start Date Occupation Industry Not on file Not on file Not on file documented as of this encounter Last Filed Vital Signs Vital Sign Reading Time Taken Comments Blood Pressure 133/83 01/08/2023 10:09 AM EDT Pulse 88 01/08/2023 10:09 AM EDT Temperature 36.8 C (98.3 F) 01/08/2023 1 0:09 AM EDT Respiratory Rate 16 01/08/2023 10:0 9 AM EDT Oxygen Saturation 94% 01/08/2023 10: 09 AM EDT Inhaled Oxygen Concentration - - Weight 124.3 kg (274 lb 1.6 oz) 023 10:09 AM EDT Height - - Body Mass Index 37.96 11/22/2021 9:23 AM EDT documented in this encounter Progress Notes * Cecy Skinner MD - 01/08/2023 11:05 AM EDT Outpatient Consult Note Data Source: Patient, Epic record. Data Source: Patient, Epic record. 01/08/2023 11:05 AM Mikhail Roy [id number] 67 year old Patient Encounter: HEMATOLOGY/ONCOLOGY [facility] Cancer Diagnosis: Prostate cancer with elevated PSA. [...] the prostate is consistent for prostatic adenocarcinoma Timbo score 3+4=7 A Left base 1 1.6 [...] with osteoblastic metastatic disease. Interval History: He is doing well without any new symptoms of complain. Denies any headache, dizziness, blurred vision, chest pain, shortness breath palpitation abdominal pain or distention, nausea, vomiting, new bone pain, skin rash, change in the bowel habits. LABS/IMAGING: Results for orders placed or performed in visit on 01/08/23 COMPREHENSIVE METABOLIC PANEL Result Value Ref Range BUN 21 (H) 6 - 20 mg/dL Creatinine 0.9 0.6 - 1.2 mg/dL Estimated Glomerular Filtration Rate >90 >=60 mL/min Sodium 136 135 - 146 mmol/L Potassium 4.9 3.5 - 5.1 mmol/L Chloride 97 (L) 98 - 107 mmol/L CO2 28 22 - 32 mmol/L Anion Gap 11 7 - 15 mmol/L Glucose 292 (H) 70 - 120 mg/dL Albumin 4.4 3.8 - 5.0 g/dL AST 27 10 - 50 U/L Alkaline Phosphatase 57 35 - 130 U/L Bilirubin, Total 0.3 <=1.2 mg/dL Calcium 10.5 (H) 8.4 - 10.2 mg/dL Protein 6.9 6.0 - 8.3 g/dL ALT 34 10 - 50 U/L CBC Result Value Ref Range WBC 6.74 4.00 - 10.80 K/uL RBC 3.99 4.50 - 5.25 M/uL HGB 12.0 (L) 14.0 - 16.8 g/dL HCT 35.8 (L) 40.0 - 48.4 % MCV 89.7 82.0 - 99.5 fL MCH 30.1 27.0 - 34.0 pg MCHC 33.5 32.0 - 36.0 g/dL RDW 12.5 11.5 - 15.5 % PLT 188 140 - 400 K/uL MPV 10.7 6.6 - 11.1 fL DIFFERENTIAL, AUTOMATED Result Value Ref Range WBC 6.74 4.00 - 10.80 K/uL Neutrophils % 57.1 40.0 - 75.0 % Lymphocytes % 30.0 18.0 - 42.0 % Monocytes % 8.5 1.0 - 11.0 % Eosinophils % 4.0 0.0 - 6.0 % Basophils % 0.4 0.0 - 2.0 % Absolute Neutrophils 3.85 1.80 - 7.70 K/uL Absolute Lymphocytes 2.02 1.00 - 4.80 K/ul Absolute Monocytes 0.57 0.00 - 1.10 K/uL Absolute Eosinophils 0.27 0.00 - 0.70 K/uL Absolute Basophils 0.03 0.00 - 0.20 K/uL Overall his blood tests are stable with stable hemoglobin and creatinine. PSA continues to decreaseand trending downward. REVIEW OF SYSTEMS: General: No Fever, chills, night sweats, or weight loss. HEENT: No change in visual acuity, blurred or double vision. No epistaxis, facial pain, nasal discharge or change in hearing. Denies dysphagia, no muscosal ulceration, or sores noted. Cardiovascular: No chest pain, BISHPO, or palpitations Respiratory: No shortness of breath, cough, hemoptysis, or pleuritic chest pain Gastrointestinal: No abdominal pain, nausea, vomiting, diarrhea, rectal pain or bleeding Genitourinary: Denies Hematuria or dysuria Musculoskeletal: No bone pain Skin: No skin rash or lesions noted Neurologic: No numbness, weakness, neuropathic pain or change in cognitive function Psychiatric: No vegetative signs of depression Endocrine: No symptoms of hypothyroidism or hyperglycemia Hematologic: No bleeding or lymph nodes noted As mentioned above, all of the systems were reviewed in full and are unremarkable. No past medical history on file. Current Outpatient Medications Medication Sig Dispense Refill Zoledronic Acid 4 MG/100ML Intravenous Solution Administer 4 mg intravenously once. (Patient not taking: Reported on 12/05/2022) Naproxen 500 MG Oral Tablet (Naprosyn) Take 1 Tablet by mouth 2 times a day as needed (pain). 40 Tablet 1 Rosuvastatin Calcium 40 MG Oral Tablet (Crestor) Take 1 Tablet by mouth in the morning. 90 Tablet 3 Lisinopril 40 MG Oral Tablet Take 1 [...] 4-6HOURS NEEDED for asthma 54 g 1 Tamsulosin HCl 0.4 MG Oral Capsule (Flomax) Take 1 Capsule by mouth in the morning. 90 Capsule 3 Montelukast Sodium 10 MG Oral Tablet (Singulair) Take 1 Tablet by mouth in the morning. 90 Tablet 3 Erleada 60 MG Oral Tablet (Apalutamide) TAKE 4 TABLETS (240 MG) DAILY. TAKE WITH OR WITHOUT FOOD 120 Tablet 5 Silodosin 8 MG Oral Capsule (Rapaflo) Take 1 Capsule by mouth in the morning. 30 Capsule 6 No current facility-administered medications for this visit. Social History Tobacco Use Smoking status: Former Years: 4.00 Types: Cigarettes Quit date: 05/19/1979 Years since quittin.6 Smokeless tobacco: Former Types: Chew Quit date: [...] comment) Gout flare Indomethacin Other (Please comment) [place] out of body when taking. Influenza Virus Vacc Had flu like reaction after taking it. PHYSICAL EXAMINATION: General Appearance: Healthy appearing patient in no acute distress BP 133/83 (BP Site: Left Arm, BP Position: Sitting, BP Cuff Size: Large) | Pulse 88 | Temp 36.8 C(98.3 F) (Tympanic) | Resp 16 | Wt 124.3 kg (274 lb 1.6 oz) | SpO2 94% | BMI 37.96 kg/m | BSA 2.5 m Vitals reviewed. HEENT: No oral or [...] the prostate is consistent with the adenocarcinoma [place] score 4+ 3 = 7. PET scan [...] any evidence of new lesion. PSA continues to trending downward. Discussed with the patient in detail about the diagnosis reviewed all the available blood tests and bone scan finding with them. I also personally reviewed the radiology images of the bone scan. PLAN: Continue apalutamide plus Lupron and Zometa. Return to clinic for follow-up in 3 months with CBC, CMP and PSA. He will also be followed by [facility] pharmacy The patient voiced understanding of all of [...] in this encounter Nursing Notes * Radhika August CMA - 01/08/2023 10:09 AM EDT Patient identifed by name and birthdate Do you have any concerns about pain management for today's visit? Yes. Patient instructed to discuss pain concerns with provider during the visit today Living Will or Advance Directive for Health Care as noted on the problem list. [email or web address] is a way you can talk to your provider on line through e-mail. Would you like to sign up? I can activate it for you? ALREADY ACTIVE Filed Vitals: 01/08/23 1009 BP: 133/83 Pulse: 88 Resp: 16 Temp: 36.8 C (98.3 F) TempSrc: Tympanic SpO2: 94% Weight: 124.3 kg (274 lb 1.6 oz) Patient was instructed to not get up [...] Plan of Treatment Upcoming Encounters Date Type Specialty Care Team Description 02/05/2023 Pharmacy Pharmacy [facility] Hem/Onc [address] [place] [address] 04/02/2023 Office Visit Hematology Oncology Cecy Skinner MD [address] [place] [address] 06/09/2023 Office Visit Family Medicine Lakisha Mclain CRNP [address] [place] [address] 07/02/2023 Office Visit Urology Erik Benitez MD [address] [place] [address] 12/11/2023 Office Visit Family Medicine Isak August DO [address] [place] [address] Scheduled Orders Name Type Priority Associated Diagnoses Orde r Schedule CBC WITH WBC DIFFERENTIAL Lab Routine 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) Expected: 04/07/2023, Expires: 02/09/2024 COMPREHENSIVE METABOLIC PANEL Lab Routine 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) Expected: 04/07/2023, Expires: 02/09/2024 PSA Lab Routine 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) Expected: 04/07/2023, Expires: 02/09/2024 Health Maintenance Due Date Last Done Comments COVID-19 Vaccine (#1) 1960 Pneumococcal Vaccine: 65+ Years (1 - PCV) 08/27/1961 Zoster Vaccines (1 of 2) 1976 Cologuard 2002 Colonoscopy 2002 Fecal Occult Blood Test 2002 Sigmoidoscopy 2002 AAA Screening 2022 Albumin/Creatinine Ratio 05/29/2023 05/29/2022 HbA1c 06/13/2023 12/11/2022, 05/19, 10/23/2021, Additional history exists DIABETES-EYE EXAM 08/01/2023 07/31/2022, , 05/04/2019 DIABETES-FOOT EXAM 12/06/2023 12/05/2022, 0 12/05/2022, 11/22/2021, Additional history exists Depression Screening, Annual for Pts 12 and Over 12/06/2023 12/05/2022 GFR 01/09/2024 01/08/2023, 11/2022, 12/11/2022, Additional history exists Lipid Panel 08/22/2027 08/21/2022, 05/19, 10/23/2021, Additional history exists DTaP,Tdap,and Td Vaccines (3 - Td or Tdap) 02/03/2030 02/04/2020, 01/26/2010, 09/08/2000 Colorectal Cancer Screening Discontinued GARDASIL-HPV IMMUNIZATION SERIES Aged Out No longer eligible based on patient's age to complete this topic Hepatitis B Aged Out No longer eligi ble based on patient's age to complete this topic MENINGOCOCCAL (MENACTRA/MENVEO) Aged Out No longer eligible based on patient's age to complete this topic documented as of this encounter Medical Devices Not on filedocumented as of this encounter Visit Diagnoses Diagnosis 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
--- OUTSIDE RECORDS SUMMARY | 2023-04-10 18:31 | External Medical Summary ---
Author Name Unknown Address Unknown Organization K09[facility] [place] [address] Laboratory Report Ordering Provider Test Date Status AB TEJEDA 02/05/2023 14:00:59 Final Observation Date Value Abnormality Reference (Units ) Status WBC, Total 02/05/2023 14:00:59 7.18 4.00-10.8 0 (K/uL) Final RBC 02/05/2023 14:00:59 4.01 4.50-5.25 (M/uL) Final Hemoglobin 02/05/2023 14:00:59 12.3 Below low normal 14 .0-16.8 (g/dL) Final HCT 02/05/2023 14:00:59 35.9 Below low normal 40. 0-48.4 (%) Final MCV 02/05/2023 14:00:59 89.5 82.0-99.5 (fL) Final MCH 02/05/2023 14:00:59 30.7 27.0-34.0 (pg) Final MCHC 02/05/2023 14:00:59 34.3 32.0-36.0 (g/dL) Final RDW 02/05/2023 14:00:59 12.7 11.5-15.5 (%) Final Platelets 02/05/2023 14:00:59 187 140-400 (K /uL) Final MPV 02/05/2023 14:00:59 10.6 6.6-11.1 ( fL) Final Performing Location [facility] [place] [address]
--- OUTSIDE RECORDS SUMMARY | 2023-04-10 18:31 | External Medical Summary ---
Author Name Unknown Address Unknown Organization K09:[facility] [place] [address] Laboratory Report Ordering Provider Test Date Status CALE AGOSTO 04/02/2023 14:00:22 Final Observation Date Value Abnormality Reference (Units ) Status SYNC LEUKOCYTES IN BLOOD BY AUTOMATED COUNT 04/02/2023 14:00:22 7.17 4.00-10.80 (K/uL) Final Segs 04/02/2023 14:00:22 56.0 40.0-75.0 (%) Final Lymphs % 04/02/2023 14:00:22 31.9 18.0-42.0 (%) Final Monos 04/02/2023 14:00:22 7.9 1.0-11.0 (%) Final Eosinophils 04/02/2023 14:00:22 3.6 0.0-6.0 (%) Final Basos 04/02/2023 14:00:22 0.6 0.0-2.0 (%) Final Absolute Segs 04/02/2023 14:00:22 4.01 1.80-7.70 (K/uL) Final Lymphs, absolute 04/02/2023 14:00:22 2.29 1.00-4.80 (K/ul) Final Monos, Abs 04/02/2023 14:00:22 0.57 0.00-1.10 (K/uL) Final Eos, Abs 04/02/2023 14:00:22 0.26 0.00-0.70 (K/uL) Final Basos, Abs 04/02/2023 14:00:22 0.04 0.00-0.20 (K/uL) Final Performing Location [facility] [place] [address]
--- OUTSIDE RECORDS SUMMARY | 2023-04-10 18:31 | External Medical Summary | Summary of Care ---
Author Name Unknown Organization [facility] Address [address] [place] [address] Phone [phone] Care Team Providers Care Supply Chain Generalist Name Role Phone Isak August Primary Care Provider Reason for Visit * Reason Onset Date Comments Mycode Lab Reorder 02/21/2023 Encounter Details Date Type Department Care Team Description 02/21/2023 Orders Only Outcomes Research Department [address] [place] [address] Brenda Hankins, [facility] MyCode Research Other*[id number]* Allergies Active Allergy Reactions Severity Noted Date Comments Erythromycin Other (Please comment) 11/14/1997 Swelling and redness of arms after Erythromycin IV for pneumonia Hydrochlorothiazide Other (Please comment) 06/17/2017 Gout flare Indomethacin Other (Please comment) 11/17/2017 [place] out of body when taking. Influenza Virus Vacc 01/29/2011 Had flu like reaction after taking it. documented as of this encounter (statuses as of 02/21/2023) Medications Medication Sig Dispensed Refills Start Date [...] as of this encounter (statuses as of 02/21/2023) Active Problems Problem Noted Date Metastatic castration-sensitive [...] as of this encounter (statuses as of 02/21/2023) Resolved Problems Problem Noted Date Resolved Date [...] as of this encounter (statuses as of 02/21/2023) Immunizations Name Administration Dates Next Due TDAP [...] on file documented as of this encounter Progress Notes * SHREYA Valentin - 02/21/2023 9:14 AM EDT MyCode lab reordered. documented in this encounter Plan of Treatment Upcoming Encounters Date Type Specialty Care Team Description 03/05/2023 Laboratory Laboratory [place], Lab Scenery [address] [place] [address] 03/05/2023 Hem/Onc Treatment Hematology Oncology [place], Chair 10 Hem Onc Scenery [address] [place] [address] 04/02/2023 Laboratory Laboratory Subha, Lab Scenery [address] [place] [address] 04/02/2023 Office Visit Hematology Oncology Cecy Skinner MD [address] [place] [address] 04/02/2023 Hem/Onc Treatment Hematology Oncology [place], Chair 9 Hem Onc Scenery [address] [place] [address] 06/09/2023 Office Visit Family Medicine Lakisha Mclain CRNP [address] [place] [address] 07/02/2023 Office Visit Urology Erik Benitez MD [address] [facility] [address] [place] [address] 12/11/2023 Office Visit Family Medicine Isak August DO [address] [place] [address] Scheduled Orders Name Type Priority Associated Diagnoses Orde r Schedule MYCODE SUBSEQUENT ADULT Lab Routine MyCode Research Other*[id number] Every 6 Months for 2 Occurrences starting 02/21/2023 until 03/12/2024 Health Maintenance Due Date Last Done Comments COVID-19 Vaccine (#1) 1960 Pneumococcal Vaccine: 65+ Years (1 - PCV) 08/27/1961 Zoster Vaccines (1 of 2) 1976 Cologuard 2002 Colonoscopy 2002 Fecal Occult Blood Test 2002 Sigmoidoscopy 2002 AAA Screening 2022 Albumin/Creatinine Ratio 05/29/2023 05/29/2022 HbA1c 06/13/2023 12/11/2022, 05/19, 10/23/2021, Additional history exists DIABETES-EYE EXAM 08/01/2023 07/31/2022, , 05/04/2019 Depression Screening 12/06/2023 12/05/2022 Diabetic Foot Exam 12/06/2023 12/05/2022, 0 12/05/2022, 11/22/2021, Additional history exists GFR 02/06/2024 02/05/2023, 08/2 07/2022, 12/23/2022, Additional history exists Lipid Panel 08/22/2027 08/21/2022, [...] as of this encounter Visit Diagnoses Diagnosis MyCode Research Other*[id number]- Primary documented in this encounter Care Teams Supply Chain Generalist Relationship Specialty Start Date End Date Isak August, [address] [place] [address] PCP - General Family Medicine 11/21/20 documented as of this encounter
--- OUTSIDE RECORDS SUMMARY | 2023-04-10 18:31 | External Medical Summary | Summary of Care ---
Author Name Unknown Organization [facility] [address] [facility] [address] Phone [phone] Care Team Providers Care Drying Oven Tender Name Role Phone Isak August Primary Care Provider Reason for Visit * Reason Comments Cough States symptoms star karis about 1 week ago Sinus Problem drainage Sore Throat Short of Breath Congestion Chest and sinus Encounter Details Date Type Department Care Team Description 02/25/2023 Office Visit Family Practice [facility] [address] [place] [address] Lurdes Carbajal CRNP [address] [place] [address] Acute frontal sinusitis, recurrence not specified*; URI with cough and congestion; Metastatic castration-sensitive adenocarcinoma of prostate ; Other seasonal allergic rhinitis Allergies Active Allergy Reactions Severity Noted Date Comments Erythromycin Other (Please comment) 11/14/1997 Swelling and redness of arms after Erythromycin IV for pneumonia Hydrochlorothiazide Other (Please comment) 06/17/2017 Gout flare Indomethacin Other (Please comment) 11/17/2017 [place] out of body when taking. Influenza Virus Vacc 01/29/2011 Had flu like reaction after taking it. documented as of this encounter (statuses as of 02/25/2023) Medications Medication Sig Dispensed Refills Start Date [...] the morning. 30 Capsule 6 12/25/2022 Active Additional Information Patient not taking.Reported on 02/25/2023 Amoxicillin-Pot Clavulanate 875-125 MG Oral Tablet (Augmentin)Indicatio ns:Acute frontal sinusitis, recurrence not specified Take 1 Tablet by mouth in the morning and 1 Tablet before bedtime. Do all this for 10 days. 20 Tablet 0 02/25/2023 3 Active documented as of this encounter (statuses as of 02/25/2023) Active Problems Problem Noted Date Metastatic castration-sensitive [...] as of this encounter (statuses as of 02/25/2023) Resolved Problems Problem Noted Date Resolved Date [...] as of this encounter (statuses as of 02/25/2023) Immunizations Name Administration Dates Next Due TDAP [...] Sign Reading Time Taken Comments Blood Pressure 138/84 02/25/2023 10:57 AM EDT Pulse 96 02/25/2023 10:57 AM EDT Temperature 36.9 C (98.5 F) 02/25/2023 1 0:57 AM EDT Respiratory Rate 12 02/25/2023 10:5 7 AM EDT Oxygen Saturation 95% 02/25/2023 10: 57 AM EDT room air Inhaled Oxygen Concentration - - Weight 122.7 kg (270 lb 9.6 oz) 023 10:57 AM EDT Height - - Body Mass Index 37.48 11/22/2021 9:23 AM EDT documented in this encounter Progress Notes * ANA LUISA Adams - 02/25/2023 11:15 AM EDT Images from the original note were not included. URI Family Medicine Visit History of Present Illness CC: Chief Complaint Patient presents with Cough States symptoms started about 1 week ago Sinus Problem drainage Sore Throat Short of Breath Congestion Chest and sinus Mikhail Roy is a very pleasant 67 year old male with above complaints x 7 days. Had sanding oldfurniture, started to getting worse. Symptoms are worse over the periods. Previous lung disease: Asthma, chronic rhinitis Has tried OTC albuterol, mucinex DM with some relief. -fever, t max +chills -sweats -decreased appetite +tolerating fluids +LINDQUIST +congestion -loss of taste or smell +runny nose +PND -ear pain +sore throat (mild) +cough -productive of mucous -sob -wheezing (+gurgling) -nausea -diarrhea -constipation -vomiting -body aches -Rash +Sleep disruption - no home Covid test Chest tightness is the worst symptom Used inhaler twice this week Not been using Singulair Social History Socioeconomic History Marital status: Spouse name: Rosalnida Number of children: 3 Years of education: Not on file Highest education level: Not on file Occupational History Occupation: rodriguez Occupation: maintenance truck driver Employer: [employer] Tobacco Use Smoking status: Former Years: 4.00 Types: Cigarettes Quit date: 05/19/1979 Years since quittin.8 Smokeless tobacco: Former Types: Chew Quit date: 04/09/2005 Tobacco comments: Quit chew 04-09-05. Smoked cigarettes for 4 yrs. quit in 1979 Vaping Use Vaping Use: Never used Substance and Sexual Activity Alcohol use: No Drug use: No Sexual activity: Yes Partners: Female control/protection: Condom Other Topics Concern Not on file Social History Narrative [facility] [place] INFORMATION ENIVIRONMENTAL HISTORY: House: Two Story Type of Heating System: Oil and Hot water radiator Air Conditioning: No Basement: Unfinished, Dampness and No evidence mold, mildew Home have cockroaches: No Irritants in the home: None Patient's bedroom: FLOOR: second TYPE OF BENNY: Hardwood Beds: AMOUNT : 1 TYPE OF BEDS: Mattress and Box spring Pillows: AMOUNT: 2 TYPE OF PILLOWS: Synthetic (hypoallergenic, polyester) Bedroom contains: Bookshelves/Books Pets: 1 cat(s) and 1 dog(s) 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 Social Determinants of Health Financial Resource Strain: Not on file Food Insecurity: Not on file Transportation Needs: Not on file Physical Activity: Not on file Stress: Not on file Social Connections: Not on file Intimate Partner Violence: Not on file Housing Stability: Not on file PMH: No past medical history on file. Past Surgical History: Procedure Laterality Date EXERCISE ECHO 05/2005 Negative for ischemia; hypertensive response; EF - 60-65% Outpatient Medications Marked as Taking for the 02/25/23 encounter (Office Visit) with ANA LUISA Adams Medication Sig Erleada 60 MG Oral Tablet (Apalutamide) TAKE 4 TABLETS (240 MG) DAILY. TAKE WITH OR WITHOUT FOOD Tamsulosin HCl 0.4 MG Oral Capsule (Flomax) Take 1 Capsule by mouth in the morning. Albuterol Sulfate HFA 108 (90 Base) MCG/ACT Inhalation Aerosol Solution USE 2 INHALATIONS EVERY 4-6HOURS NEEDED for asthma Allopurinol 300 MG Oral Tablet (Zyloprim) Take 1 Tablet by mouth in the morning. Carvedilol 3.125 MG Oral Tablet (Coreg) Take 1 Tablet by mouth in the morning and 1 Tablet before bedtime. With food.. Lisinopril 40 MG Oral Tablet Take 1 Tablet by mouth in the morning. Rosuvastatin Calcium 40 MG Oral Tablet (Crestor) Take 1 Tablet by mouth in the morning. Zoledronic Acid 4 MG/100ML Intravenous Solution Administer 4 mg intravenously once. Review of patient's allergies indicates: Allergen Reactions Erythromycin Other (Please comment) Swelling and redness of arms after Erythromycin IV for pneumonia Hctz [Hydrochlorothiazide] Other (Please comment) Gout flare Indomethacin Other (Please comment) [place] out of body when taking. Influenza Virus Vacc Had flu like reaction after taking it. Most Recent Immunizations Administered Date(s) Administered Seasonal Influenza, Split, IIV3, With Preserve, Inj 04/08/2001 TD - Tetanus/Diptheria (ADULT) 09/08/2000 TDAP (age 10 and older)(Boostrix) 02/04/2020 TDAP (age 11 and older)(Adacel) 01/26/2010 Review of Systems: Physical Exam BP 138/84 (BP Site: Left Arm, BP Position: Sitting, BP Cuff Size: Large) | Pulse 96 | Temp 36.9 C(98.5 F) (Tympanic) | Resp 12 | Wt 122.7 kg (270 lb 9.6 oz) | SpO2 95% Comment: room air | BMI 37.48 kg/m | BSA 2.48 m Physical Exam Constitutional: Appearance: Normal appearance. HENT: Head: Normocephalic. Right Ear: Tympanic membrane and ear canal normal. Left Ear: Ear canal normal. Nose: Congestion and rhinorrhea present. Rhinorrhea is clear. Right Sinus: No maxillary sinus tenderness or frontal sinus tenderness. Left Sinus: No maxillary sinus tenderness or frontal sinus tenderness. Mouth/Throat: Pharynx: No posterior oropharyngeal erythema. Cardiovascular: Rate and Rhythm: Normal rate and regular rhythm. Pulmonary: Effort: Pulmonary effort is normal. Breath sounds: Normal breath sounds. No decreased breath sounds, wheezing or rhonchi. Musculoskeletal: Cervical back: Neck supple. Skin: General: Skin is warm. Neurological: Mental Status: He is alert and oriented to person, place, and time. Psychiatric: Mood and Affect: Mood normal. Assessment and Plan 1. URI with cough and congestion Increase albuterol every 4-6 hours Requesting prednisone -- will ask a doc to oncology team 2. Acute frontal sinusitis, recurrence not specified Saline irrigation Antibiotics if developing fever or worsening - Amoxicillin-Pot Clavulanate 875-125 MG Oral Tablet (Augmentin); Take 1 Tablet by mouth in the morning and 1 Tablet before bedtime. Do all this for 10 days. Dispense: 20 Tablet; Refill: 0 3. Metastatic castration-sensitive adenocarcinoma of prostate Zometa 4. Other seasonal allergic rhinitis Wrap-Up Recommend supportive care including: Humidifier Rest Push fluids Reviewed pathophysiology of viral URI Recommend handwashing and covering cough Reviewed signs and symptoms in which to seek medical care I have advised the patient to call our office incase of any worsening or new symptoms. A total of 25 minutes were spent with the patient, more than half in [id number]-nl-[id number] explanation and discussion of the condition and treatment and answering questions. COLIN Adams, ANA LUISA [facility] documented in this encounter Nursing Notes * Mukesh Perez RN - 02/25/2023 10:56 AM EDT Chief Complaint Patient presents with Cough States symptoms started about 1 week ago Sinus Problem drainage Sore Throat Short of Breath Congestion Chest and sinus documented in this encounter Plan of Treatment Upcoming Encounters Date Type Specialty Care Team Description 03/05/2023 Laboratory Laboratory [facility], Lab Scen[address] [place] [id number] 03/05/2023 Hem/Onc Treatment [facility] [place], Chair 10 Hem Onc Scenery [address] [place] [address] 04/02/2023 Laboratory Laboratory [place], Lab Scenery [address] [place] [address] 04/02/2023 Office Visit Hematology Oncology Cecy Skinner MD [address] [place] [address] 04/02/2023 Hem/Onc Treatment Hematology Oncology [place], Chair 9 Hem Onc Scenery [address] [place] [address] 06/09/2023 Office Visit Family Medicine Lakisha Mclain CRNP [address] [place] [address] 07/02/2023 Office Visit Urology Erik Benitez MD [address] [place] [address] [place] [address] 12/11/2023 Office Visit Family Medicine Isak August DO [address] [place] [address] Health Maintenance Due Date Last Done Comments [...] 11/22/2021, Additional history exists GFR 02/06/2024 02/05/2023, 12/18, 12/23/2022, Additional history exists Lipid Panel 08/22/2027 [...] as of this encounter Visit Diagnoses Diagnosis Acute frontal sinusitis, recurrence not specified- Primary URI with cough and congestion Metastatic castration-sensitive adenocarcinoma of prostate Other seasonal allergic rhinitis documented in this encounter Care Teams Drying Oven Tender Relationship Specialty Start Date End Date Isak August DO [address] [place] [address] PCP - General Family Medicine 11/21/20 documented as of this encounter"
--- OUTSIDE RECORDS SUMMARY | 2023-04-10 18:31 | External Medical Summary | Summary of Care ---
Author Name Unknown Organization [facility] Address [address] [facility] [address] Phone [phone] Care Team Providers Care Nuclear Medicine Technologist Name Role Phone Isak August Primary Care Provider Reason for Visit * Reason Comments Outpatient Testing Encounter Details Date Type Department Care Team Description 03/05/2023 Laboratory Laboratory Sc[place]ery [place] [address] [place] [address] [facility] Lab Scenery [address] [place] [id number] Metastatic castration-sensitive adenocarcinoma of prostate ; Bone lesion Allergies Active Allergy Reactions Severity Noted Date Comments Erythromycin Other (Please comment) 11/14/1997 Swelling and redness of arms after Erythromycin IV for pneumonia Hydrochlorothiazide Other (Please comment) 06/17/2017 Gout flare Indomethacin Other (Please comment) 11/17/2017 [place] out of body when taking. Influenza Virus Vacc 01/29/2011 Had flu like reaction after taking it. documented as of this encounter (statuses as of 03/05/2023) Medications Medication Sig Dispensed Refills Start Date [...] for 10 days. 20 Tablet 0 02/25/2023 Active glipiZIDE 5 MG Oral Tablet (Glucotrol)Indicatio ns:Bronchitis, complicated Take 1 Tablet by mouth in the morning. 30 minutes before a meal.. 5 Tablet 0 02/25/2023 Active documented as of this encounter (statuses as of 03/05/2023) Active Problems Problem Noted Date Metastatic castration-sensitive [...] as of this encounter (statuses as of 03/05/2023) Resolved Problems Problem Noted Date Resolved Date [...] as of this encounter (statuses as of 03/05/2023) Immunizations Name Administration Dates Next Due TDAP [...] on file documented as of this encounter Plan of Treatment Upcoming Encounters Date Type Specialty Care Team Description 03/05/2023 Hem/Onc Treatment [facility] [place], Chair 10 Hem Onc Scenery [address] [place] [address] Arrived 04/02/2023 Laboratory Laboratory [facility] Lab Scenery [address] [place] [address] 04/02/2023 Office Visit Hematology Oncology Cecy Skinner MD [address] [place] [address] 04/02/2023 Hem/Onc Treatment Hematology Oncology [place], Chair 9 Hem Onc Scenery [address] [place] [address] 06/09/2023 Office Visit Family Medicine Lakisha Mclain CRNP [address] [place] [address] 07/02/2023 Office Visit Urology Erik Benitez MD [address] [place] [address] [place] [address] 12/11/2023 Office Visit Family Medicine Isak August DO [address] [place] [address] Pending Results Name Type Priority Associated Diagnoses Date /Time CBC WITH WBC DIFFERENTIAL Lab STAT Metastatic castration-sensitive adenocarcinoma of prostate Bone lesion 03/05/2023 12:37 PM EDT COMPREHENSIVE METABOLIC PANEL Lab STAT Metastatic castration-sensitive adenocarcinoma of prostate Bone lesion 03/05/2023 12:37 PM EDT CBC Lab STAT Metastatic castration-sensitive adenocarcinoma of prostate Bone lesion 03/05/2023 12:37 PM EDT DIFFERENTIAL, AUTOMATED Lab STAT Metastatic castration-sensitive adenocarcinoma of prostate Bone lesion 03/05/2023 12:37 PM EDT Health Maintenance Due Date Last Done Comments [...] Diagnoses Diagnosis Metastatic castration-sensitive adenocarcinoma of prostate Bone lesion Disorder of bone and cartilage, unspecified documented in this encounter Care Teams Nuclear Medicine Technologist Relationship Specialty Start Date End Date Isak August, [address] [place] [address] PCP - General Family Medicine 11/21/20 documented as of this encounter
--- OUTSIDE RECORDS SUMMARY | 2023-04-10 18:31 | External Medical Summary | Summary of Care ---
Author Name Unknown Organization [facility] Address [address] [place] [address] Phone [phone] Care Team Providers Care Dye Range Operator Cloth Name Role Phone Michelet Augustthom Mcneilevelyn Primary Care Provider Reason for Visit * Reason Comments Infusion Zometa * Episode Based Medications (Routine) - Authorized Specialty Diagnoses / Procedures Referred By Contac t Referred To Contact Diagnoses Metastatic castration-sensitive adenocarcinoma of prostate Procedures CA ZOLEDRONIC ACID 1MG Cecy Skinner MD [address] [place] [address] Anc Hem/Onc [facility] Subha [address] [place] [address] [place] [address] Referral ID Status Reason Start Date Expiration Date V isits Requested Visits Authorized [id number] Authorized 01/14/2022 05/18/2099 99 99 Encounter Details Date Type Department Care Team Description 03/05/2023 Hem/Onc Treatment Hematology/Oncology Treatment, [place] [address] [place] [address] [place], Chair 10 Hem Onc [facility] [address] [facility] [place] [address] Metastatic castration-sensitive adenocarcinoma of prostate * Allergies Active Allergy Reactions Severity Noted Date Comments Erythromycin Other (Please comment) 11/14/1997 Swelling and redness of arms after Erythromycin IV for pneumonia Hydrochlorothiazide Other (Please comment) 06/17/2017 Gout flare Indomethacin Other (Please comment) 11/17/2017 [place] out of body when taking. Influenza Virus [...] days. 20 Tablet 0 02/25/2023 3 Active glipiZIDE 5 MG Oral Tablet (Glucotrol)Indicatio [...] Sign Reading Time Taken Comments Blood Pressure 124/81 03/05/2023 2:42 PM EDT Pulse 96 03/05/2023 2:42 PM EDT Temperature 36.4 C (97.5 F) 03/05/2023 2:42 PM ED T Respiratory Rate 18 03/05/2023 2:42 PM EDT Oxygen Saturation 94% 03/05/2023 2:42 PM EDT Inhaled Oxygen Concentration - - Weight - - Height - - Body Mass Index - - documented in this encounter Nursing Notes * Brittany Greene LPN - 03/05/2023 2:43 PM EDT 1340: Pt arrived for Zometa infusion. PIV in L metacarpal. Pt tolerated well. VSS. Andreas WNL. No complaints at this time. 1405: Pt tolerated Zometa infusion well. PIV removed intact. Pt to return in 4 weeks. Discharged instable condition. documented in this encounter Plan of Treatment Upcoming Encounters Date Type Specialty Care Team Description 04/02/2023 Laboratory Laboratory [facility], Lab Scenery [address] [place] [address] 04/02/2023 Office Visit Hematology Oncology Cecy Skinner MD [address] [place] [address] 04/02/2023 Hem/Onc Treatment [facility] [place], Chair 9 Hem Onc Scenery [address] [place] [address] 06/09/2023 Office Visit Family Medicine Lakisha Mclain CRNP [address] [place] [address] 07/02/2023 Office Visit Urology Erik Benitez MD [address] [facility] [address] [facility] [place] [address] 12/11/2023 Office Visit Family Medicine Isak August DO [address] [place] [address] Health Maintenance Due Date Last Done Comments [...] 0 12/05/2022, 11/22/2021, Additional history exists GFR 03/05/2024 03/05/2023, 01/18, 01/08/2023, Additional history exists Lipid Panel 08/22/2027 08/21/2022, [...] ONCE PRN Other, Hypersensitivity Reaction, Starting on Fri03/05/23 at 1318, Until Esme 03/06/23 at 1317, For 24 hours EPINEPHrine 1 MG/ML inj 0.3 mg 0.3 mg, Intramuscular, ONCE PRN Other, Hypersensitivity Reaction or Anaphylaxis, Starting on Fri03/05/23 at 1318, Until Esme 03/06/23 at 1317, For 24 hours hEParin 100 UNIT/ML Lock Flush inj 500 Units 500 Units (5 mL), IV Lock, PRN Other, IV Flush, Starting on Fri03/05/23 at 1318, Until Esme 03/06/23 at 1317, For 24 hours, Do not flush if lock, PICC, or central line not in place; IV infusing or unable to flush. Hydrocortisone Sod Suc (PF) (Solu-Cortef) inj 100 mg 100 mg, IV Push, ONCE PRN Other, Hypersensitivity Reaction, Starting on Fri03/05/23 at 1318, Until Esme 03/06/23 at 1317, For 24 hours NSS infusion 500 mL, Intravenous, at 50 mL/hr, CONTINUOUS, Starting on Fri03/05/23 at 1430, Until Esme 03/06/23 at 0029 Start Infusion 03/05/2023 1:44 PM EDT 500 mL 50 mL/hr sodium chloride 0.9 % flush central line 10 mL 10 mL, IV Push, PRN Other, IV Flush, Starting on Fri03/05/23 at 1318, Until Esme 03/06/23 at 1317, For 24 hours, Do not flush if lock, PICC, or central line not in place; IV infusing or unable to flush. Inactive Administered Medications - up to 3 most recent administrations Medication Order MAR Action Action Date Dose Rate Site Zoledronic Acid (Zometa) 4 mg in 100 mL PREMIX ivpb 4 mg, IV Piggyback, ONCE, 1 dose, On Fri03/05/23 at 1430 Start Infusion 03/05/2023 1:44 PM EDT 4 mg 400 mL/hr documented in this encounter Care Teams Dye Range Operator Cloth Relationship Specialty Start Date End Date Isak August DO [address] [place] [address] PCP - General Family Medicine 11/21/20 documented as of this encounter
--- OUTSIDE RECORDS SUMMARY | 2023-04-10 18:31 | External Medical Summary ---
Author Name Unknown Address Unknown Organization [id number]:[facility] [address] [place] [address] Laboratory Report Ordering Provider Test Date Status AB TEJEDA 02/05/2023 14:00:59 Final Observation Date Value Abnormality Reference (Units ) Status BUN 02/05/2023 14:00:59 23 Above high normal 6-20 (mg/dL) Final Creatinine 02/05/2023 14:00:59 0.9 0.6-1.2 (mg/dL) Final Glomerular filtration rate/1.73 sq M.predicted [Volume Rate/Area] in Serum, Plasma or Blood by Creatinine-based formula (CKD-EPI) 02/05/2023 14:00:59 >90 >=60 (mL/min) Final eGFR is calculated based on the CKD-EPI 2020 equation SODIUM 02/05/2023 14:00:59 136 135-146 (m mol/L) Final Potassium 02/05/2023 14:00:59 4.4 3.5-5.1 (m mol/L) Final Cl 02/05/2023 14:00:59 98 98-107 (mm ol/L) Final CO2 02/05/2023 14:00:59 25 22-32 (mmo l/L) Final Anion gap 02/05/2023 14:00:59 13 7-15 (mmol /L) Final Glucose 02/05/2023 14:00:59 258 Above high normal 70 -120 (mg/dL) Final Albumin 02/05/2023 14:00:59 4.5 3.8-5.0 (g /dL) Final AST (Aspartate aminotransferase) 02/05/2023 14:00:59 38 10-50 (U/L) Fin al Alk Phos 02/05/2023 14:00:59 66 35-130 (U/ L) Final Bilirubin, Total 02/05/2023 14:00:59 0.3 <=1 .2 (mg/dL) Final Calcium 02/05/2023 14:00:59 10.2 8.4-10.2 ( mg/dL) Final Protein 02/05/2023 14:00:59 7.0 6.0-8.3 (g /dL) Final ALT (Alanine aminotransferase) 02/05/2023 14:00:59 45 10-50 (U/L) Brendon vargas Performing Location [facility] [address] [place] [address]
--- OUTSIDE RECORDS SUMMARY | 2023-04-10 18:31 | External Medical Summary | Summary of Care ---
Author Name Unknown Organization [facility] Address [address] [facility] [address] Phone [phone] Care Team Providers Care Mushroom Cutter Name Role Phone Mikki August Primary Care Provider Reason for Visit * Reason Comments Follow Up * Precert (Within 10 days (routine)) - Authorized Specialty Diagnoses / Procedures Referred By Heidy mcdonough Referred To Contact Urology Diagnoses Malignant neoplasm of prostate (HCC) Procedures [place] LEUPROLIDE ACETATE SUSPNSION Erik Benitez MD [address] [place] [address] Erik Benitez MD [address] [place] [address] Referral ID Status Reason Start Date Expiration Date V isits Requested Visits Authorized [id number] Authorized Precert 11/20/2021 05/18/2099 99 99 Encounter Details Date Type Department Care Team Description 12/25/2022 Office Visit Urology, [facility] [address] [facility] [place] [address] Erik Benitez MD [address] [place] [address] Prostate cancer (HCC)*; Prostate cancer metastatic to multiple sites (HCC); Bone lesion; Slowing of urinary stream Allergies Active Allergy Reactions Severity Noted Date Comments Erythromycin Other (Please comment) 11/14/1997 Swelling and redness of arms after Erythromycin IV for pneumonia Hydrochlorothiazide Other (Please comment) 06/17/2017 Gout flare Indomethacin Other (Please comment) 11/17/2017 [place] out of body when taking. Influenza Virus Vacc 01/29/2011 Had flu like reaction after taking it. documented as of this encounter (statuses as of 01/09/2023) Medications Medication Sig Dispensed Refills Start Date [...] the morning. 30 Capsule 6 12/25/2022 Active Hospital, Clinic, or Other Facility Administered Medication Ordered Dose Route Frequency Start Date End Date Status Leuprolide Acetate (6 Month) (Lupron) inj 45 mgIndications:Prostate cancer (HCC) 45 mg IM ONCE 12/25/2022 12/25/2022 Ended documented as of this encounter (statuses as of 01/09/2023) Active Problems Problem Noted Date Metastatic castration-sensitive [...] as of this encounter (statuses as of 01/09/2023) Resolved Problems Problem Noted Date Resolved Date [...] as of this encounter (statuses as of 01/09/2023) Immunizations Name Administration Dates Next Due Seasonal [...] as of this encounter Progress Notes * Erik Benitez MD - 12/25/2022 3:06 PM EDT [id number] PCP: MIKKI AUGUST [address] [place] [address] [place] [address] [phone] Mikhail Roy is a 67 year old male, who presents for 4 month follow-up of his history of metastatic prostate cancer. Patient's past notes reviewed. It has been a year since the patient's initial presentation. PSA remains undetectable. Interval medical oncology notes are reviewed. He remains on tamsulosin. He notes mild orthostasis with tamsulosin, some recurrent LUTS. Patient notes hair loss and hot flashes, minimal bother. He is due for six-month Lupron today. Prostate Cancer: Presented Oct 2021. Patientestablishedfor evaluation of an elevated PSA. Previous evaluation includesreferral to urology.. Patient has been onandrogen deprivation since shortly after biopsy. He reportsslow stream. Tamsulosin provided Oct 2021.Casodex started Oct 2021 at presentation.Lupron [address] scanJun2021 demonstrating metastatic disease to the bone. Prostate biopsy Eliseo emonstrates high volume prostate cancer, grade group 3 and 4. Medical oncology and radiation oncology consultations undertaken October 2021. Apalutamide provided Feb 2022 by med onc. Rapaflo provided December 2022. PSA Results: Lab Results Component Value Date/Time PSA - [facility] 0.06 12/23/2022 09:36 AM PSA - [facility] 0.09 10/16/2022 12:35 PM PSA - [facility] 0.20 08/28/2022 12:32 PM PSA SCREENING 1.08 07/26/2010 08:50 AM PSA SCREENING 0.80 07/25/2009 08:22 AM PSA SCREENING 0.66 07/15/2008 10:43 AM Current Outpatient Medications Medication Sig Dispense Refill [...] MCG/ACT Inhalation Aerosol Solution USE 2 INHALATIONS EVERY4-6 HOURS NEEDED for asthma 54 g 1 Tamsulosin HCl 0.4 MG Oral Capsule (Flomax) Take 1 Capsule by mouth in the morning. 90 Capsule 3 Montelukast Sodium 10 MG Oral Tablet (Singulair) Take 1 Tablet by mouth in the morning. 90 Tablet 3 Erleada 60 MG Oral Tablet (Apalutamide) TAKE 4 TABLETS (240 MG) DAILY. TAKE WITH OR WITHOUT FOOD 120 Tablet 5 No current facility-administered medications for this visit. Review of patient's allergies indicates: Allergen Reactions Erythromycin Other (Please comment) Swelling and redness of arms after Erythromycin IV for pneumonia Hctz [Hydrochlorothiazide] Other (Please comment) Gout flare Indomethacin Other (Please comment) [place] out of body when taking. Influenza Virus Vacc Had flu like reaction after taking it. Social History: Social History Tobacco Use Smoking status: Former Years: 4.00 Types: Cigarettes Quit date: 05/19/1979 Years since quittin.6 Smokeless tobacco: Former Types: Chew Quit date: 04/09/2005 Tobacco comments: Quit chew 04-09-05. Smoked cigarettes for 4 yrs. quit in 1979 Substance Use Topics Alcohol use: No Vaping/E-Cigarette Use Vaping/E-Cigarette Use Never User Vaping/E-Cigarette Substances Vaping/E-Cigarette Devices Family History 13 items Mother Hypertension Arthritis Endocrine Disorder Diabetes Father ( at age 59) Cancer Brother Brother Son Daughter Daughter Son Asthma Brother Allergies Brother Asthma Daughter No Past Hx Daughter Neurological Disorder Son No Past Hx Past Surgical History: Procedure Laterality Date EXERCISE ECHO 05/2005 Negative for ischemia; hypertensive response; EF - 60-65% No past medical history on file. 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 Constitutional: General: He is not in acute distress. Appearance: Normal appearance. He is obese. He is not toxic-appearing. HENT: Head: Normocephalic and atraumatic. Right Ear: External ear normal. Left Ear: External ear normal. Nose: Nose normal. Mouth/Throat: Mouth: Mucous membranes are moist. Eyes: Extraocular Movements: Extraocular movements intact. Cardiovascular: Pulses: Normal pulses. Pulmonary: Effort: Pulmonary effort is normal. Abdominal: Palpations: Abdomen is soft. Tenderness: There is no abdominal tenderness. Musculoskeletal: Cervical back: Normal range of motion and neck supple. Lymphadenopathy: Cervical: No cervical adenopathy. Skin: Coloration: Skin is not cyanotic or pale. Neurological: Mental Status: He is alert and oriented to person, place, and time. Gait: Gait normal. Psychiatric: Attention and Perception: Attention normal. Mood and Affect: Mood and affect normal. Impression/Plan: 67-year-old male with a history of metastatic prostate cancer, excellent PSA. Recommend the patient have his bone scan as recommended to check on his cancer progress. We are pleased with his excellent PSA. Prescription for Rapaflo 8 mg provided to compare to tamsulosin for symptom control while hopefully avoiding orthostasis. Will hold on increasing dose of tamsulosin due toorthostasis. Will move to 6 month visits with myself, f/u with med onc as scheduled. Above content is personally reviewed. Patient vocalizes good understanding of the treatment plan. Erik Benitez MD 3:07 PM 12/25/2022 documented in this encounter Nursing Notes * Marie Carvajal LPN - 12/25/2022 2:44 PM EDT 4 month ret for prostate cancer, lupron injection. tamsulosin PSA Results: Lab Results Component Value Date/Time PSA - [facility] 0.06 12/23/2022 09:36 AM PSA - [facility] 0.09 10/16/2022 12:35 PM PSA - [facility] 0.20 08/28/2022 12:32 PM PSA SCREENING 1.08 07/26/2010 08:50 AM PSA SCREENING 0.80 07/25/2009 08:22 AM PSA SCREENING 0.66 07/15/2008 10:43 AM C/o- urgency, frequency, nocturia x 3, losing hair documented in this encounter Plan of Treatment Upcoming Encounters Date Type Specialty Care Team Description 02/05/2023 Pharmacy [facility] Hem[facility]Onc [address] [place] [address] 02/05/2023 Laboratory Laboratory [place], Lab Scenery [address] [place] [address] 02/05/2023 Hem/Onc Treatment Hematology Oncology [place], Chair 11 Hem Onc Scenery [address] [place] [address] 03/05/2023 Laboratory Laboratory [place], Lab Scenery [address] [place] [address] 03/05/2023 Hem/Onc Treatment Hematology Oncology [place], [address] 10 Hem Onc Scenery [address] [place] [address] 04/02/2023 Laboratory Laboratory [place], Lab Scenery [address] [place] [address] 04/02/2023 Office Visit Hematology Oncology Cecy Skinner MD [address] [place] [address] 04/02/2023 Hem/Onc Treatment Hematology Oncology [place], Chair 10 Hem Onc Scenery [address] [place] [address] 06/09/2023 Office Visit Family Medicine Lakisha Mclain CRNP [address] [place] [address] 07/02/2023 Office Visit Urology Erik Benitez MD [address] [place] [address] 12/11/2023 Office Visit Family Medicine Mikki August DO [address] [place] [address] Health Maintenance Due Date Last Done Comments [...] and Over 12/06/2023 12/05/2022 GFR 01/09/2024 01/08/2023, 08/0 11/2022, 12/11/2022, Additional history exists Lipid Panel [...] as of this encounter Visit Diagnoses Diagnosis Prostate cancer (HCC)- Primary Malignant neoplasm of prostate Prostate cancer metastatic to multiple sites (HCC) Malignant neoplasm of prostate Bone lesion Disorder of bone and cartilage, unspecified Slowing of urinary stream documented in this encounter Administered Medications Inactive Administered Medications - up to 3 most recent administrations Medication Order MAR Action Action Date Dose Rate Site Leuprolide Acetate (6 Month) (Lupron) inj 45 mg 45 mg, Intramuscular, ONCE, On Fri12/25/22 at 1545, For 1 dose Given 12/25/2022 3:34 PM EDT 45 mg Ventrogluteal Left documented in this encounter Care Teams Mushroom Cutter Relationship Specialty Start Date End Date Mikki August, [address] [place] [address] PCP - General Family Medicine 11/21/20 documented as of this encounter
--- OUTSIDE RECORDS SUMMARY | 2023-04-10 18:31 | External Medical Summary | Summary of Care ---
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) Procedures MI ZOLEDRONIC ACID 1MG Cecy Skinner MD [address] [place] [address] Anc Hem/Onc [facility] [address] [place] [address] Referral ID Status Reason Start Date Expiration Date V isits Requested Visits Authorized [id number] Authorized 01/14/2022 05/18/2099 99 99 Encounter Details Date Type Department Care Team Description 02/05/2023 Hem/Onc Treatment Hematology/Oncology Treatment, [place] [address] [place] [address] [place], [address] Hem Onc Scene [address] [place] [address] 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 Influenza Virus Vacc 01/29/2011 Had flu like reaction after taking it. documented as of this encounter (statuses as of 02/05/2023) Medications Medication Sig Dispensed Refills Start Date [...] as of this encounter (statuses as of 02/05/2023) Active Problems Problem Noted Date Metastatic castration-sensitive [...] as of this encounter (statuses as of 02/05/2023) Resolved Problems Problem Noted Date Resolved Date [...] as of this encounter (statuses as of 02/05/2023) Immunizations Name Administration Dates Next Due TDAP [...] Sign Reading Time Taken Comments Blood Pressure 114/71 02/05/2023 3:17 PM EDT Pulse 100 02/05/2023 3:17 PM EDT Temperature 36.4 C (97.5 F) 02/05/2023 3:17 PM ED T Respiratory Rate 18 02/05/2023 3:17 PM EDT Oxygen Saturation 95% 02/05/2023 3:17 PM EDT Inhaled Oxygen Concentration - - Weight - - Height - - Body Mass Index - - documented in this encounter Nursing Notes * Brittany Greene LPN - 02/05/2023 3:18 PM EDT 1445: Pt arrived for Zometa infusion. PIV in R metacarpal. Pt tolerated well. VSS. No complaints atthis time. 1508: Pt tolerated Zometa infusion well. PIV removed intact. Pt to return in 4 weeks. Discharged instable condition. documented in this encounter Plan of Treatment Upcoming Encounters Date Type Specialty Care Team Description 03/05/2023 Laboratory Laboratory [place], Lab Scenery [address] [facility] [place] [address] 03/05/2023 Hem/Onc Treatment Hematology Oncology [place], Chair 10 Hem Onc Scenery [address] [facility] [place] [address] 04/02/2023 Laboratory Laboratory [place], Lab Scenery [address] [facility] [place] [address] 04/02/2023 Office Visit Hematology Oncology Cecy Skinner MD [address] [place], [place] [phone] 04/02/2023 Hem/Onc Treatment Hematology Oncology [place], [address] Hem Onc Scenery [address] [place] [address] 06/09/2023 Office Visit Family Medicine Lakisha Mclain CRNP [address] [place] [address] 07/02/2023 Office Visit Urology Erik Benitez MD [address] [place] [id number] 12/11/2023 Office Visit Family Medicine Isak August DO [address] [place] [address] Health Maintenance Due Date Last Done Comments [...] prostate (HCC)- Primary documented in this encounter Administered Medications Inactive Administered Medications - up to 3 most recent administrations Medication Order MAR Action Action Date Dose Rate Site NSS infusion 500 mL, Intravenous, at 50 mL/hr, CONTINUOUS, Starting on Fri02/05/23 at 1545, Until Fri02/05/23 at 1537 Start Infusion 02/05/2023 2:49 PM EDT 500 mL 50 mL/hr Zoledronic Acid (Zometa) 4 mg in 100 mL PREMIX ivpb 4 mg, IV Piggyback, ONCE, 1 dose, On Fri02/05/23 at 1545 Start Infusion 02/05/2023 2:50 PM EDT 4 mg 500 mL/hr documented in this encounter Care Teams Yardage Estimator Relationship Specialty Start Date End Date Isak August DO [address] [place] [address] PCP - General Family Medicine 11/21/20 documented as of this encounter
--- OUTSIDE RECORDS SUMMARY | 2023-04-10 18:31 | External Medical Summary | Summary of Care ---
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 Influenza Virus [...] as of this encounter Progress Notes * Columba Layne, [facility] - 02/05/2023 3:31 PM EDT MEDICATION THERAPY MANAGEMENT APALUTAMIDE TREATMENT PROGRESS NOTE [place] [phone] Patient Phone Numbers Communication: Spoke to: Patient Treatment: Medication: Apalutamide (Erleada) Indication: prostate cancer Dose: 240mg daily Administration: +/- food Start Date: 02/25/22 Primary Choral Director/Oncologist: Dr. Skinner Supportive Care Meds: Zometa Eligard Prophylactic Meds: Carvedilol 3.125mg BID Lisinopril 40mg daily Interval History: No concerns, tolerating therapy well Changes to medication list since last visit? No Assessment and Plan: BP stable Continue current therapy Pt continues good medication tolerability and every 3-4 month provider follow up with labs. MTM to discharge pt from clinic at this time. Pt agreeable to service discharge Assessment of compliance: compliant Assessment of adverse effects attributed to drug therapy: Hypertension - absent Edema - absent Diarrhea - absent Fatigue -- absent Seizures - absent Rash -absent Dose adjustment needed based on lab or adverse drug reaction? No Follow up: 04/02 OV/labs Columba Layne, PharmD, BCOP Clinical Pharmacist, [facility] Oral Chemotherapy [facility] 02/05/2023, 3:36 PM , Pertinent labs 12/11/2022 01/08/2023 02/05/2023 BP AND WT. Systolic 118 133 114 Systolic 133 Diastolic 80 83 71 Diastolic 83 Time Spent on Encounter: 6 - 10 minutes Encounter Group: Oncology Encounter Interventions Item Category: Oral Chemotherapy Apalutamide Problem/Rationale: Safety: Needs additional monitoring - Medication Requires monitoring Pharmacist Intervention(s): Lab monitoring and Toxicity monitoring Magnitude of Intervention: Monitoring with direction (Level 1) documented in this encounter Plan of Treatment Upcoming Encounters Date Type Specialty Care Team Description 03/05/2023 Laboratory Laboratory [facility] [place] [address] [place] [address] 03/05/2023 Hem/Onc Treatment Hematology Oncology [place], Chair 10 Hem Onc Scenery [address] [place] [address] 04/02/2023 Laboratory Laboratory [place], Lab Scenery [address] [place] [address] 04/02/2023 Office Visit Hematology Oncology Cecy Skinner MD [address] [place] [address] 04/02/2023 Hem/Onc Treatment Hematology Oncology [place], Chair 10 Hem Onc Scenery [address] [facility] [address] 06/09/2023 Office Visit Family Medicine Lakisha Mclain CRNP [address] [place] [address] 07/02/2023 Office Visit Urology Erik Benitez MD [address] [facility] [address] [place] [address] 12/11/2023 Office Visit Family Medicine Isak August DO [address] [place] [address] Health Maintenance Due Date Last Done Comments [...] Primary documented in this encounter Care Teams Rural Route Carrier Relationship Specialty Start Date End Date Isak August DO [address] [place] [address] PCP - General Family Medicine 11/21/20 documented as of this encounter
--- OUTSIDE RECORDS SUMMARY | 2023-04-10 18:31 | External Medical Summary ---
Author Name Unknown Address Unknown Organization K09:[facility] [place] [address] Laboratory Report Ordering Provider Test Date Status CALE AGOSTO 04/02/2023 14:00:22 Final Observation Date Value Abnormality Reference (Units ) Status WBC, Total 04/02/2023 14:00:22 7.17 4.00-10.8 0 (K/uL) Final RBC 04/02/2023 14:00:22 4.24 4.50-5.25 (M/uL) Final Hemoglobin 04/02/2023 14:00:22 12.8 Below low normal 14 .0-16.8 (g/dL) Final HCT 04/02/2023 14:00:22 37.7 Below low normal 40. 0-48.4 (%) Final MCV 04/02/2023 14:00:22 88.9 82.0-99.5 (fL) Final MCH 04/02/2023 14:00:22 30.2 27.0-34.0 (pg) Final MCHC 04/02/2023 14:00:22 34.0 32.0-36.0 (g/dL) Final RDW 04/02/2023 14:00:22 12.4 11.5-15.5 (%) Final Platelets 04/02/2023 14:00:22 186 140-400 (K /uL) Final MPV 04/02/2023 14:00:22 11.0 6.6-11.1 ( fL) Final Performing Location [facility] [place] [address]
--- OUTSIDE RECORDS SUMMARY | 2023-04-10 18:31 | External Medical Summary | Summary of Care ---
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) Procedures IA ZOLEDRONIC ACID 1MG Cecy Skinner MD [address] [place] [address] Anc Hem/Onc [place] Masc[place] [address] [place] [phone] Referral ID Status Reason Start Date Expiration Date V isits Requested Visits Authorized [id number] Authorized 01/14/2022 05/18/2099 99 99 Encounter Details Date Type Department Care Team Description 01/08/2023 Hem/Onc Treatment Hematology/Oncology Treatment, [place] [address] [place] [address] Subha, Chair 4 Hem Onc [place] [address] [place] [id number] 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 Influenza Virus [...] Time Taken Comments Blood Pressure 133/83 01/08/2023 11:23 AM EDT Pulse - - Temperature - - Respiratory Rate - - Oxygen Saturation - - Inhaled Oxygen Concentration - - Weight - - Height - - Body Mass Index - - documented in this encounter Nursing Notes * Magnolia Goodman RN - 01/08/2023 2:43 PM EDT Pt completed infusion without issues. IV removed Goals: Pt will remain free from injury. Possible barriers to meeting goals: ambulation with IV pole Stability of the patient: Moderately stable - low risk of patient condition declining or worsening Summary regarding today's goals: Met: Pt remained free from injury during treatment today. Discharged in stable condition. No coverage. * Magnolia Goodman RN - 01/08/2023 11:24 AM EDT Chair 5, Zometa. Pt seen by Dr. Skinner; refer to OV notes. PIV established; NSS infusing. Safety and Risk for Injury Patient will remain free from injury. Ensure appropriate safety devices are available. Provide and maintain safe environment. documented in this encounter Plan of Treatment Upcoming Encounters Date Type Specialty Care Team Description 02/05/2023 [place] [facility] [place] [facility] Hem/Onc [address] [place] [address] 02/05/2023 Laboratory [facility] [place], Lab Scenery [address] [facility] [address] 02/05/2023 Hem/Onc Treatment Hematology Oncology [place], Chair 11 Hem Onc Scenery [address] [facility] [address] 03/05/2023 Laboratory Laboratory [place], Lab Scenery [address] [place] [address] 03/05/2023 Hem/Onc Treatment Hematology Oncology [place], Chair 10 Hem Onc Scenery [address] [place] [address] 04/02/2023 Laboratory Laboratory [place], Lab Scenery [address] [place] [address] 04/02/2023 Office Visit Hematology Oncology Cecy Skinner MD [address] [place] [address] 04/02/2023 Hem/Onc Treatment Hematology Oncology [place], Chair 10 Hem Onc Scenery [address] [place] [address] 06/09/2023 Office Visit Family Medicine Lakisha Mclain CRNP [address] [place] [address] 07/02/2023 Office Visit Urology Erik Benitez MD [address] [place] [address] [place] [address] 12/11/2023 Office Visit Family Medicine Isak August DO [address] [place] [address] Health Maintenance Due Date Last Done Comments [...] ONCE PRN Other, Hypersensitivity Reaction, Starting on Fri01/08/23 at 1111, Until Fri01/09/23 at 1110, For 24 hours EPINEPHrine 1 MG/ML inj 0.3 mg 0.3 mg, Intramuscular, ONCE PRN Other, Hypersensitivity Reaction or Anaphylaxis, Starting on Fri01/08/23 at 1111, Until Esme 01/09/23 at 1110, For 24 hours hEParin 100 UNIT/ML Lock Flush inj 500 Units 500 Units (5 mL), IV Lock, PRN Other, IV Flush, Starting on Fri01/08/23 at 1111, Until Esme 01/09/23 at 1110, For 24 hours, Do not flush if lock, PICC, or central line not in place; IV infusing or unable to flush. Hydrocortisone Sod Suc (PF) (Solu-Cortef) inj 100 mg 100 mg, IV Push, ONCE PRN Other, Hypersensitivity Reaction, Starting on Fri01/08/23 at 1111, Until Fri01/09/23 at 1110, For 24 hours NSS infusion 500 mL, Intravenous, at 50 mL/hr, CONTINUOUS, Starting on Fri01/08/23 at 1215, Until Fri01/08/23 at 2214 Start Infusion 01/08/2023 11:04 AM EDT 500 mL 50 mL/hr sodium chloride 0.9 % flush central line 10 mL 10 mL, IV Push, PRN Other, IV Flush, Starting on Fri01/08/23 at 1111, Until Fri01/09/23 at 1110, For 24 hours, Do not flush if lock, PICC, or central line not in place; IV infusing or unable to flush. Inactive Administered Medications - up to 3 most recent administrations Medication Order MAR Action Action Date Dose Rate Site Zoledronic Acid (Zometa) 4 mg in 100 mL PREMIX ivpb 4 mg, IV Piggyback, ONCE, 1 dose, On Fri01/08/23 at 1215 Start Infusion 01/08/2023 11:12 AM EDT 4 mg 400 mL/hr documented in this encounter Care Teams Environmental Protection Specialist Relationship Specialty Start Date End Date Isak August DO [address] [place] [address] PCP - General Family Medicine 11/21/20 documented as of this encounter
--- OUTSIDE RECORDS SUMMARY | 2023-04-10 18:31 | External Medical Summary ---
Author Name Unknown Address Unknown Organization [id number]:[facility] [place] [address] Laboratory Report Ordering Provider Test Date Status AB TEJEDA 02/05/2023 14:00:59 Final Observation Date Value Abnormality Reference (Units ) Status SYNC LEUKOCYTES IN BLOOD BY AUTOMATED COUNT 02/05/2023 14:00:59 7.18 4.00-10.80 (K/uL) Final Segs 02/05/2023 14:00:59 54.8 40.0-75.0 (%) Final Lymphs % 02/05/2023 14:00:59 33.3 18.0-42.0 (%) Final Monos 02/05/2023 14:00:59 8.4 1.0-11.0 (%) Final Eosinophils 02/05/2023 14:00:59 2.9 0.0-6.0 (%) Final Basos 02/05/2023 14:00:59 0.6 0.0-2.0 (%) Final Absolute Segs 02/05/2023 14:00:59 3.94 1.80-7.70 (K/uL) Final Lymphs, absolute 02/05/2023 14:00:59 2.39 1.00-4.80 (K/ul) Final Monos, Abs 02/05/2023 14:00:59 0.60 0.00-1.10 (K/uL) Final Eos, Abs 02/05/2023 14:00:59 0.21 0.00-0.70 (K/uL) Final Basos, Abs 02/05/2023 14:00:59 0.04 0.00-0.20 (K/uL) Final Performing Location [facility] [place] [address]
--- OUTSIDE RECORDS SUMMARY | 2023-04-10 18:31 | External Medical Summary | Summary of Care ---
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 Influenza Virus [...] Date Type Specialty Care Team Description 02/05/2023 Hem/Onc Treatment Hematology On[place], Chair 11 Hem Onc Scenery [address] [place] [address] Arrived 03/05/2023 Laboratory Laboratory [place], Lab Scenery [address] [place] [address] 03/05/2023 Hem/Onc Treatment Hematology Oncology [place], Chair 10 Hem Onc Scenery [address] [facility] [address] 04/02/2023 Laboratory Laboratory [place], Lab Scenery [address] [facility] [address] 04/02/2023 Office Visit Hematology Oncology Cecy Skinner MD [address] [place] [address] 04/02/2023 Hem/Onc Treatment Hematology Oncology [place], Chair 10 Hem Onc Scenery [address] [facility] [address] 06/09/2023 Office Visit Family Medicine Lakisha Mclain CRNP [address] [place] [address] 07/02/2023 Office Visit Urology Erik Benitez MD [address] [place] [address] [place] [address] 12/11/2023 Office Visit Family Medicine Isak August DO [address] [place] [address] Pending Results Name Type Priority Associated Diagnoses Date /Time COMPREHENSIVE METABOLIC PANEL Lab Routine 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) 02/05/2023 2:00 PM EDT PSA Lab Routine 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) 02/05/2023 2:00 PM EDT Health Maintenance Due Date Last [...] 0 12/05/2022, 11/22/2021, Additional history exists GFR 01/09/2024 01/08/2023, 08/0 11/2022, 12/11/2022, Additional [...] Not on filedocumented as of this encounter Procedures Procedure Name Priority Date/Time Associated Diagnosis Comments DIFFERENTIAL, AUTOMATED Routine 02/05/2023 2:00 PM EDT 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0 % 02/05/2023 2:05 PM EDT [facility] 56- Eosinophils % 2.9 0.0 - 6.0 % 02/05/2023 2:05 PM EDT [facility] 56- Basophils % 0.6 0.0 - 2.0 % 02/05/2023 2:05 PM EDT [facility] 56-02 Absolute Neutrophils 3.94 1.80 - 7.70 K/uL 02/05/2023 2:05 PM EDT [facility] 56-02 Absolute Lymphocytes 2.39 1.00 - 4.80 K/ul 02/05/2023 2:05 PM EDT [facility] 56-02 Absolute Monocytes 0.60 0.00 - 1.10 K/uL 02/05/2023 2:05 PM EDT [facility] 56-02 Absolute Eosinophils 0.21 0.00 - 0.70 K/uL 02/05/2023 2:05 PM EDT [facility] 56-02 Absolute Basophils 0.04 0.00 - 0.20 K/uL 02/05/2023 2:05 PM EDT [facility] 56-02 Blood Venous blood specimen / Unknown Venipuncture / Unknown 02/05/2023 2:00 PM EDT 02/05/2023 2:01 PM EDT Cecy Skinner MD LAB BLOOD ORDERA BLES [facility] [address]- [address] [place] [address] * (ABNORMAL) CBC (02/05/2023 2:00 PM EDT) WBC 7.18 4.00 - 10.80 K/uL 02/05/2023 2:05 PM EDT [facility] 56- RBC 4.01 4.50 - 5.25 M/uL 02/05/2023 2:05 PM EDT [facility] 56- HGB 12.3(L) 14.0 - 16.8 g/dL 02/05/2023 2:05 PM EDT [facility] 56- HCT 35.9(L) 40.0 - 48.4 % 02/05/2023 2:05 PM EDT [facility] 56- MCV 89.5 82.0 - 99.5 fL 02/05/2023 2:05 PM EDT [facility] 56- MCH 30.7 27.0 - 34.0 pg 02/05/2023 2:05 PM EDT [facility] 56 MCHC 34.3 32.0 - 36.0 g/dL 02/05/2023 2:05 PM EDT [facility] 56 RDW 12.7 11.5 - 15.5 % 02/05/2023 2:05 PM EDT [facility] 56- PLT 187 140 - 400 K/uL 02/05/2023 2:05 PM EDT [facility] 56- MPV 10.6 6.6 - 11.1 fL 02/05/2023 2:05 PM EDT [facility] 56- Blood Venous blood specimen / Unknown Venipuncture / Unknown 02/05/2023 2:00 PM EDT 02/05/2023 2:01 PM EDT Cecy Skinner MD LAB BLOOD ORDERA BLES [facility] [address]- [address] [place] [address] documented in this encounter Visit Diagnoses Diagnosis 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
--- OUTSIDE RECORDS SUMMARY | 2023-04-10 18:31 | External Medical Summary ---
Author Name Unknown Address Unknown Organization [id number]:[facility] [address] Laboratory Report Ordering Provider Test Date Status CALE AGOSTO 03/05/2023 12:37:32 Final Observation Date Value Abnormality Reference (Units ) Status SYNC LEUKOCYTES IN BLOOD BY AUTOMATED COUNT 03/05/2023 12:37:32 9.51 4.00-10.80 (K/uL) Final Segs 03/05/2023 12:37:32 57.6 40.0-75.0 (%) Final Lymphs % 03/05/2023 12:37:32 31.2 18.0-42.0 (%) Final Monos 03/05/2023 12:37:32 7.9 1.0-11.0 (%) Final Eosinophils 03/05/2023 12:37:32 2.9 0.0-6.0 (%) Final Basos 03/05/2023 12:37:32 0.4 0.0-2.0 (%) Final Absolute Segs 03/05/2023 12:37:32 5.47 1.80-7.70 (K/uL) Final Lymphs, absolute 03/05/2023 12:37:32 2.97 1.00-4.80 (K/ul) Final Monos, Abs 03/05/2023 12:37:32 0.75 0.00-1.10 (K/uL) Final Eos, Abs 03/05/2023 12:37:32 0.28 0.00-0.70 (K/uL) Final Basos, Abs 03/05/2023 12:37:32 0.04 0.00-0.20 (K/uL) Final Performing Location [facility] [place] [address]
--- OUTSIDE RECORDS SUMMARY | 2023-04-10 18:31 | External Medical Summary ---
Author Name Unknown Address Unknown Organization K09:[facility] 56[address] [place] [address] Laboratory Report Ordering Provider Test Date Status CALE AGOSTO 03/05/2023 12:37:32 Final Observation Date Value Abnormality Reference (Units ) Status BUN 03/05/2023 12:37:32 24 Above high normal 6-20 (mg/dL) Final Creatinine 03/05/2023 12:37:32 1.0 0.6-1.2 (mg/dL) Final Glomerular filtration rate/1.73 sq M.predicted [Volume Rate/Area] in Serum, Plasma or Blood by Creatinine-based formula (CKD-EPI) 03/05/2023 12:37:32 88 >=60 (mL/min) Final eGFR is calculated based on the CKD-EPI 2020 equation SODIUM 03/05/2023 12:37:32 135 135-146 (m mol/L) Final Potassium 03/05/2023 12:37:32 4.5 3.5-5.1 (m mol/L) Final Cl 03/05/2023 12:37:32 97 Below low normal 98- 107 (mmol/L) Final CO2 03/05/2023 12:37:32 24 22-32 (mmo l/L) Final Anion gap 03/05/2023 12:37:32 14 7-15 (mmol /L) Final Glucose 03/05/2023 12:37:32 311 Above high normal 70 -120 (mg/dL) Final Albumin 03/05/2023 12:37:32 4.4 3.8-5.0 (g /dL) Final AST (Aspartate aminotransferase) 03/05/2023 12:37:32 22 10-50 (U/L) Fin al Alk Phos 03/05/2023 12:37:32 67 35-130 (U/ L) Final Bilirubin, Total 03/05/2023 12:37:32 0.3 <=1 .2 (mg/dL) Final Calcium 03/05/2023 12:37:32 10.1 8.4-10.2 ( mg/dL) Final Protein 03/05/2023 12:37:32 6.9 6.0-8.3 (g /dL) Final ALT (Alanine aminotransferase) 03/05/2023 12:37:32 29 10-50 (U/L) Brendon vargas Performing Location [facility] [address] [place] [address]
--- OUTSIDE RECORDS SUMMARY | 2023-04-10 18:31 | External Medical Summary ---
Author Name Unknown Address Unknown Organization K09:[facility] [place] [address] Laboratory Report Ordering Provider Test Date Status CALE AGOSTO 03/05/2023 12:37:32 Final Observation Date Value Abnormality Reference (Units ) Status WBC, Total 03/05/2023 12:37:32 9.51 4.00-10.8 0 (K/uL) Final RBC 03/05/2023 12:37:32 4.43 4.50-5.25 (M/uL) Final Hemoglobin 03/05/2023 12:37:32 13.3 Below low normal 14 .0-16.8 (g/dL) Final HCT 03/05/2023 12:37:32 39.8 Below low normal 40. 0-48.4 (%) Final MCV 03/05/2023 12:37:32 89.8 82.0-99.5 (fL) Final MCH 03/05/2023 12:37:32 30.0 27.0-34.0 (pg) Final MCHC 03/05/2023 12:37:32 33.4 32.0-36.0 (g/dL) Final RDW 03/05/2023 12:37:32 12.8 11.5-15.5 (%) Final Platelets 03/05/2023 12:37:32 217 140-400 (K /uL) Final MPV 03/05/2023 12:37:32 10.9 6.6-11.1 ( fL) Final Performing Location [facility] [place] [address]
--- OUTSIDE RECORDS SUMMARY | 2023-04-10 18:31 | External Medical Summary ---
Author Name Unknown Address Unknown Organization K01:[facility] [address] [place] [address] Laboratory Report Ordering Provider Test Date Status AB TEJEDA 02/05/2023 14:00:59 Final Observation Date Value Abnormality Reference (Units ) Status PSA 02/05/2023 14:00:59 0.04 <4.10 (ng/ mL) Final Performing Location [facility] - [address] [place] [address]
--- OUTSIDE RECORDS SUMMARY | 2023-04-10 18:31 | External Medical Summary | Summary of Care ---
Author Name Unknown Organization [facility] Address [address] [facility] [place] [address] Phone [phone] Care Team Providers Care Machine Assembler Supervisor Name Role Phone Isak August Primary Care Provider Encounter Details Date Type Department Care Team Description 02/25/2023 Orders Only Family Practice [facility] [address] [place] [address] Lurdes Carbajal CRNP [address] [place] [address] Bronchitis, complicated* Allergies Active Allergy Reactions Severity Noted Date Comments Erythromycin Other (Please comment) 11/14/1997 Swelling and redness of arms after Erythromycin IV for pneumonia Hydrochlorothiazide Other (Please comment) 06/17/2017 Gout flare Indomethacin Other (Please comment) 11/17/2017 [place] out of body when taking. Influenza Virus [...] a meal.. 5 Tablet 0 02/25/2023 Active predniSONE 20 MG Oral Tablet (Deltasone)Indicatio ns:Bronchitis, complicated Take 2 Tablets by mouth in the morning for 5 days. 10 Tablet 0 02/25/2023 3 Active documented as [...] as of this encounter Progress Notes * ANA LUISA Adams - 02/25/2023 7:58 PM EDT Sent myG. documented in this encounter Plan of Treatment Upcoming Encounters Date Type Specialty Care Team Description 03/05/2023 Laboratory Laboratory [place], Lab Scenery [address] [place] [address] 03/05/2023 Hem/Onc Treatment Hematology Oncology [place], Chair 10 Hem Onc Scenery [address] [place] [address] 04/02/2023 Laboratory Laboratory [place], Lab Scenery [address] [place] [address] 04/02/2023 Office Visit Hematology Oncology Cecy Skinner MD [address] [place] [address] 04/02/2023 Hem/Onc Treatment Hematology Oncology [place], Chair 9 Hem Onc Scenery [address] [place] [address] 06/09/2023 Office Visit Family Medicine Lakisha Mclain CRNP [address] [place] [address] 07/02/2023 Office Visit Urology Erik Benitez MD [address] [place] [address] [place] [address] 12/11/2023 Office Visit Family Medicine Isak August DO [address] [place] [address] Health Maintenance Due Date Last Done Comments [...] as of this encounter Visit Diagnoses Diagnosis Bronchitis, complicated- Primary Bronchitis, not specified as acute or chronic documented in this encounter Care Teams Machine Assembler Supervisor Relationship Specialty Start Date End Date Isak August DO [address] [place] [address] PCP - General Family Medicine 11/21/20 documented as of this encounter
--- OUTSIDE RECORDS SUMMARY | 2023-04-10 18:31 | External Medical Summary ---
Author Name Unknown Address Unknown Organization K09:[facility] [place] [place] [address] Laboratory Report Ordering Provider Test Date Status CALE AGOSTO 03/05/2023 12:37:32 Final Observation Date Value Abnormality Reference (Units ) Status Nucleated erythrocytes/100 leukocytes [Ratio] in Blood by Automated count 03/05/2023 12:37:32 Final Performing Location [facility] [place] [place] [address]
--- OUTSIDE RECORDS SUMMARY | 2023-04-10 18:31 | External Medical Summary ---
Author Name Unknown Address Unknown Organization K09:[facility] 56[address] [place] [address] Laboratory Report Ordering Provider Test Date Status CALE AGOSTO 04/02/2023 14:00:22 Final Observation Date Value Abnormality Reference (Units ) Status BUN 04/02/2023 14:00:22 17 6-20 (mg/dL) Final Creatinine 04/02/2023 14:00:22 0.8 0.6-1.2 (mg/dL) Final Glomerular filtration rate/1.73 sq M.predicted [Volume Rate/Area] in Serum, Plasma or Blood by Creatinine-based formula (CKD-EPI) 04/02/2023 14:00:22 >90 >=60 (mL/min) Final eGFR is calculated based on the CKD-EPI 2020 equation SODIUM 04/02/2023 14:00:22 135 135-146 (m mol/L) Final Potassium 04/02/2023 14:00:22 4.5 3.5-5.1 (m mol/L) Final Cl 04/02/2023 14:00:22 97 Below low normal 98- 107 (mmol/L) Final CO2 04/02/2023 14:00:22 27 22-32 (mmo l/L) Final Anion gap 04/02/2023 14:00:22 11 7-15 (mmol /L) Final Glucose 04/02/2023 14:00:22 340 Above high normal 70 -120 (mg/dL) Final Albumin 04/02/2023 14:00:22 4.3 3.8-5.0 (g /dL) Final AST (Aspartate aminotransferase) 04/02/2023 14:00:22 27 10-50 (U/L) Fin al Alk Phos 04/02/2023 14:00:22 66 35-130 (U/ L) Final Bilirubin, Total 04/02/2023 14:00:22 0.2 <=1 .2 (mg/dL) Final Calcium 04/02/2023 14:00:22 9.8 8.4-10.2 ( mg/dL) Final Protein 04/02/2023 14:00:22 6.8 6.0-8.3 (g /dL) Final ALT (Alanine aminotransferase) 04/02/2023 14:00:22 34 10-50 (U/L) Brendon vargas Performing Location [facility] [address] [place] [address]
--- OUTSIDE RECORDS SUMMARY | 2023-04-10 18:31 | External Medical Summary | Summary of Care ---
Author Name Unknown Organization [facility] Address [address] [facility] [place] [address] Phone [phone] Care Team Providers Care Leather Crafter Name Role Phone Isak August Primary Care Provider Reason for Visit * Reason Comments Outpatient Testing Encounter Details Date Type Department Care Team (Late st Contact Info) Description 04/02/2023 1:40 PM EST Laboratory Laboratory Scenery [place] [address] [place] [address] [place], Lab Scenery [address] [place] [address] Metastatic castration-sensitive adenocarcinoma of prostate ; Bone lesion Allergies Active Allergy Reactions Criticality Noted Date Comments Erythromycin Other (Please comment) 11/14/1997 Swelling and redness of arms after Erythromycin IV for pneumonia Hydrochlorothiazide Other (Please comment) 06/17/2017 Gout flare Indomethacin Other (Please comment) 11/17/2017 [place] out of body when taking. Influenza Virus [...] the morning. 30 Capsule 6 3 Active Additional Information Patient not taking.Reported on 02/25/2023 Tamsulosin HCl 0.4 MG Oral Capsule (Flomax) [...] Tobacco: Former Chew Quit: 04/09/2005 Comments:Quit chew 11-22-05. Smoked cigarettes for 4 yrs. quit in [...] Team (Late st Contact Info) Description 04/02/2023 3:00 PM EST Hem/Onc Treatment Hematology/Oncology Treatment, [place] [address] [facility], [place] [address] Subha, Chair 11 Hem Onc Scenery [address] [place], [place] [address] Arrived 04/30/2023 2:00 PM EST Laboratory Laboratory [facility] [address] [place], [place] [id number] [place], Lab Scenery [address] [facility] [place], [place] [address] 04/30/2023 3:00 PM EST Hem/Onc Treatment Hematology/Oncology Treatment, [place] [address] [facility], [place] [address] Subha, Chair 11 Hem Onc Scenery [address] [place], [place] [address] 05/28/2023 2:00 PM EST Laboratory [facility] [address] [place], [place] [id number] [place], Lab Scenery [address] [place] [address] 05/28/2023 3:00 PM EST Hem/Onc Treatment Hematology/Oncology Treatment, [place] [address] [place] [address] Subha, Chair 11 Hem Onc Scenery [address] [place], [place] [address] 06/09/2023 9:00 AM EST Office Visit [facility] [address] [facility] [place] [address] Lakisha Mclain CRNP [address] [place] [address] 07/02/2023 10:15 AM EST Office Visit Urology, [facility] [address] [place] [address] Erik Benitez MD [address] [place] [address] 12/11/2023 8:20 AM EDT Office Visit [facility] [address] [place] [address] Isak August DO [address] [facility] [place] [address] Pending Results Name Type Priority Associated Diagnoses Date /Time COMPREHENSIVE METABOLIC PANEL Lab STAT Metastatic castration-sensitive adenocarcinoma of prostate Bone lesion 04/02/2023 2:00 PM EST Health Maintenance Due Date Last Done Comments [...] Priority Date/Time Associated Diagnosis Comments DIFFERENTIAL, AUTOMATED STAT 04/02/2023 2:00 PM EST Metastatic castration-sensitive adenocarcinoma of prostate Bone lesion CBC STAT 04/02/2023 2:00 PM EST Metastatic castration-sensitive adenocarcinoma of prostate Bone lesion CBC STAT 04/02/2023 2:00 PM EST Metastatic castration-sensitive adenocarcinoma of prostate Bone lesion documented in this encounter Results * DIFFERENTIAL, AUTOMATED (04/02/2023 2:00 PM EST) WBC 7.17 4.00 - 10.80 K/uL 04/02/2023 2:04 PM EST [facility] 56-02 Neutrophils % 56.0 40.0 - 75.0 % 04/02/2023 2:04 PM EST [facility] 56-02 Lymphocytes % 31.9 18.0 - 42.0 % 04/02/2023 2:04 PM EST [facility] 56-02 Monocytes % 7.9 1.0 - 11.0 % 04/02/2023 2:04 PM EST [facility] 56-02 Eosinophils % 3.6 0.0 - 6.0 % 04/02/2023 2:04 PM EST [facility] 56-02 Basophils % 0.6 0.0 - 2.0 % 04/02/2023 2:04 PM EST [facility] 56- Absolute Neutrophils 4.01 1.80 - 7.70 K/uL 04/02/2023 2:04 PM EST [facility] 56- Absolute Lymphocytes 2.29 1.00 - 4.80 K/ul 04/02/2023 2:04 PM EST [facility] 56- Absolute Monocytes 0.57 0.00 - 1.10 K/uL 04/02/2023 2:04 PM EST [facility] 56- Absolute Eosinophils 0.26 0.00 - 0.70 K/uL 04/02/2023 2:04 PM EST [facility] 56- Absolute Basophils 0.04 0.00 - 0.20 K/uL 04/02/2023 2:04 PM [facility] 56 Blood Venous blood specimen / Unknown Venipuncture / Unknown 04/02/2023 2:00 PM EST 04/02/2023 2:00 PM EST Yehuda Munoz MD LAB BLOOD ORDERABLES [facility] 56- [address] [place] [address] * (ABNORMAL) CBC (04/02/2023 2:00 PM EST) WBC 7.17 4.00 - 10.80 K/uL 04/02/2023 2:04 PM [facility] 56 RBC 4.24 4.50 - 5.25 M/uL 04/02/2023 2:04 PM [facility] 56 HGB 12.8(L) 14.0 - 16.8 g/dL 04/02/2023 2:04 PM [facility] 56- HCT 37.7(L) 40.0 - 48.4 % 04/02/2023 2:04 PM [facility] 56- MCV 88.9 82.0 - 99.5 fL 04/02/2023 2:04 PM EST [facility] 56 MCH 30.2 27.0 - 34.0 pg 04/02/2023 2:04 PM EST [facility] 56-02 MCHC 34.0 32.0 - 36.0 g/dL 04/02/2023 2:04 PM EST [facility] 56- RDW 12.4 11.5 - 15.5 % 04/02/2023 2:04 PM EST [facility] 56- PLT 186 140 - 400 K/uL 04/02/2023 2:04 PM EST [facility] 56- MPV 11.0 6.6 - 11.1 fL 04/02/2023 2:04 PM EST [facility] 56 Blood Venous blood specimen / Unknown Venipuncture / Unknown 04/02/2023 2:00 PM EST 04/02/2023 2:00 PM EST Yehuda Munoz MD LAB BLOOD ORDERABLES [facility] 56- [address] [place] [address] documented in this encounter Visit Diagnoses Diagnosis Metastatic castration-sensitive adenocarcinoma of prostate Bone lesion Disorder of bone and cartilage, unspecified documented in this encounter Care Teams Leather Crafter Relationship Specialty Start Date End Date Isak August DO [address] [place] [address] PCP - General Family Medicine 11/21/20 documented as of this encounter
--- OUTSIDE RECORDS SUMMARY | 2023-04-10 18:32 | External Medical Summary | Summary of Care ---
Author Name Unknown Organization [facility] Address [address] [facility] [address] Phone [phone] Care Team Providers Care Timber Repairer Name Role Phone Isak August Primary Care Provider Encounter Details Date Type Department Care Team Description 12/25/2022 Telephone Urology Cinda Thomas [address] [place] [address] [place] [id number] Erik Benitez MD [address] [place] [address] [place] [address] Allergies Active Allergy Reactions Severity Noted Date Comments Erythromycin Other (Please comment) 11/14/1997 Swelling and redness of arms after Erythromycin IV for pneumonia Hydrochlorothiazide Other (Please comment) 06/17/2017 Gout flare Indomethacin Other (Please comment) 11/17/2017 [place] out of body when taking. Influenza Virus Vacc 01/29/2011 Had flu like reaction after taking it. documented as of this encounter (statuses as of 12/25/2022) Medications Medication Sig Dispensed Refills Start Date [...] as of this encounter (statuses as of 12/25/2022) Active Problems Problem Noted Date Metastatic castration-sensitive [...] as of this encounter (statuses as of 12/25/2022) Resolved Problems Problem Noted Date Resolved Date [...] as of this encounter (statuses as of 12/25/2022) Immunizations Name Administration Dates Next Due TDAP [...] on file documented as of this encounter Miscellaneous Notes * Telephone Encounter - VALERIO Gamboa - 12/25/2022 3:37 PM EDT Patient needs to be scheduled for a [place] whole body bone scan. Order is in chart. Please reach out toschedule. documented in this encounter Plan of Treatment Upcoming Encounters Date Type Specialty Care Team Description 12/26/2022 Pharmacy Pharmacy [facility] Hem/Onc [address] [place] [address] 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)* 01/08/2023 Laboratory Laboratory [place], Lab Scenery [address] [place] [address] 01/08/2023 Hem/Onc Treatment Hematology Oncology [place], Chair 11 Hem Onc Scenery [address] [place] [address] 02/05/2023 Pharmacy Pharmacy [facility] Hem/Onc [address] [place] [address] 06/09/2023 Office Visit Family Medicine Lakisha Mclain CRNP [address] [place] [address] 07/02/2023 Office Visit Urology Erik Benitez MD [address] [place] [address] [place] [address] 12/11/2023 Office Visit Family Medicine Isak August DO [address] [place] [address] Health Maintenance Due Date Last Done Comments [...] Pts 12 and Over 12/06/2023 12/05/2022 GFR 12/24/2023 12/23/2022, 11/17, 11/13/2022, Additional history exists Lipid Panel 08/22/2027 08/21/2022, [...] Not on filedocumented as of this encounter Care Teams Timber Repairer Relationship Specialty Start Date End Date Isak August DO [address] [place] [address] PCP - General Family Medicine 11/21/20 documented as of this encounter
--- OUTSIDE RECORDS SUMMARY | 2023-04-10 18:32 | External Medical Summary | Summary of Care ---
Author Name Unknown Organization [facility] Address [address] [place] [address] Phone [phone] Care Team Providers Care Inspector Balance Truing Name Role Phone Michelet Augustthom Mcneilevelyn Primary Care Provider Reason for Visit * Reason Comments IV Therapy Zometa * Episode Based Medications (Routine) - Authorized Specialty Diagnoses / Procedures Referred By Contmelchor t Referred To Contact Diagnoses 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) Procedures [place] ZOLEDRONIC ACID 1MG Cecy Skinner MD [address] [place] [address] Anc Hem/Onc Scenelisa [place] [address] [place] [address] Referral ID Status Reason Start Date Expiration Date V isits Requested Visits Authorized [id number] Authorized 01/14/2022 05/18/2099 99 99 Encounter Details Date Type Department Care Team Description 12/11/2022 Hem/Onc Treatment Hematology/Oncology Treatment, [place] [address] [place] [address] Subha, Chair 10 Hem Onc [place] [address] [place] [address] 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)* Allergies Active Allergy Reactions Severity Noted Date Comments Erythromycin Other (Please comment) 11/14/1997 Swelling and redness of arms after Erythromycin IV for pneumonia Hydrochlorothiazide Other (Please comment) 06/17/2017 Gout flare Indomethacin Other (Please comment) 11/17/2017 [place] out of body when taking. Influenza Virus Vacc 01/29/2011 Had flu like reaction after taking it. documented as of this encounter (statuses as of 12/11/2022) Medications Medication Sig Dispensed Refills Start Date End Date Status Zoledronic Acid 4 MG/100ML Intravenous Solution Administer 4 mg intravenously once. 0 Active Naproxen 500 MG Oral Tablet (Naprosyn)Indication s:Right flank pain Take 1 Tablet by mouth 2 times a day as needed (pain). 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 TAKE WITH OR WITHOUT FOOD 120 Tablet 5 07/22/2022 Active Rosuvastatin Calcium 40 MG Oral Tablet [...] the morning. 90 Tablet 3 12/05/2022 Active documented as of this encounter (statuses as of 12/11/2022) Active Problems Problem Noted Date Metastatic castration-sensitive [...] as of this encounter (statuses as of 12/11/2022) Resolved Problems Problem Noted Date Resolved Date [...] as of this encounter (statuses as of 12/11/2022) Immunizations Name Administration Dates Next Due TDAP [...] Reading Time Taken Comments Blood Pressure 118/80 12/11/2022 1:35 PM EDT Pulse 97 12/11/2022 1:35 PM EDT Temperature 36.1 C (97 F) 12/11/2022 1:35 PM EDT Respiratory Rate 18 12/11/2022 1:35 PM EDT Oxygen Saturation 94% 12/11/2022 1:35 PM EDT Inhaled Oxygen Concentration - - Weight - - Height - - Body Mass Index - - documented in this encounter Nursing Notes * Crystal Fung RN - 12/11/2022 1:57 PM EDT Chair 5 Pt here for Zometa infusion. No complaints. Reports he usually develops generalized pain within 24 hours of taking zometa. Takes tylenol with some effect and rests. Pt tolerated infusion well. No complaints. Discharged in stable condition. Follow-up Zometa appt made. Pt states he does not want follow-up with Dr. Skinner at this time. Also decided not to have bone scan done because he is no longer having back pain. documented in this encounter Plan of Treatment Upcoming Encounters Date Type Specialty Care Team Description 12/25/2022 Office Visit Urology Erik Benitez MD [address] [place] [address] [place] [address] 12/26/2022 Pharm[place] [facility] [place] [address] [facility] [id number] 01/08/2023 Laboratory Laboratory [place], Lab Scenery [address] [place] [address] 01/08/2023 Hem/Onc Treatment Hematology Oncology [place], Chair 11 Hem Onc Scenery [address] [place] [address] 06/09/2023 Office Visit Family Medicine Lakisha Mclain CRNP [address] [place] [address] 12/11/2023 Office Visit Family Medicine Isak August DO [address] [place] [address] Health Maintenance Due Date Last Done Comments COVID-19 Vaccine (#1) 1962 Pneumococcal Vaccine: 65+ Years (1 - PCV) 08/27/1963 Zoster Vaccines (1 of 2) 1976 Cologuard 2002 Colonoscopy 2002 Fecal Occult Blood Test 2002 Sigmoidoscopy 2002 AAA Screening 2022 HbA1c 11/26/2022 05/29/2022, 0611/2021, 11/21/2020, Additional history exists Albumin/Creatinine Ratio 05/29/2023 05/29/2022 DIABETES-EYE EXAM 08/01/2023 07/31/2022, , 05/04/2019 DIABETES-FOOT EXAM 12/06/2023 12/05/2022, 0 12/05/2022, 11/22/2021, Additional history exists Depression Screening, Annual for Pts 12 and Over 12/06/2023 12/05/2022 GFR 12/12/2023 12/11/2022, 10/18, 10/16/2022, Additional history exists Lipid Panel 08/22/2027 08/21/2022, [...] ONCE PRN Other, Hypersensitivity Reaction, Starting on Fri12/11/22 at 1345, Until Fri12/12/22 at 1344, For 24 hours EPINEPHrine 1 MG/ML inj 0.3 mg 0.3 mg, Intramuscular, ONCE PRN Other, Hypersensitivity Reaction or Anaphylaxis, Starting on Fri12/11/22 at 1345, Until Fri12/12/22 at 1344, For 24 hours hEParin 100 UNIT/ML Lock Flush inj 500 Units 500 Units (5 mL), IV Lock, PRN Other, IV Flush, Starting on Fri12/11/22 at 1345, Until Fri12/12/22 at 1344, For 24 hours, Do not flush if lock, PICC, or central line not in place; IV infusing or unable to flush. Hydrocortisone Sod Suc (PF) (Solu-Cortef) inj 100 mg 100 mg, IV Push, ONCE PRN Other, Hypersensitivity Reaction, Starting on Fri12/11/22 at 1345, Until Fri12/12/22 at 1344, For 24 hours NSS infusion 500 mL, Intravenous, at 50 mL/hr, CONTINUOUS, Starting on Fri12/11/22 at 1445, Until Fri12/12/22 at 0044 Start Infusion 12/11/2022 1:40 PM EDT 500 mL 50 mL/hr sodium chloride 0.9 % flush central line 10 mL 10 mL, IV Push, PRN Other, IV Flush, Starting on Fri12/11/22 at 1345, Until Fri12/12/22 at 1344, For 24 hours, Do not flush if lock, PICC, or central line not in place; IV infusing or unable to flush. Inactive Administered Medications - up to 3 most recent administrations Medication Order MAR Action Action Date Dose Rate Site Zoledronic Acid (Zometa) 4 mg in 100 mL PREMIX ivpb 4 mg, IV Piggyback, ONCE, 1 dose, On Fri12/11/22 at 1445 New Bag 12/11/2022 1:46 PM EDT 4 mg 40 0 mL/hr documented in this encounter Care Teams Inspector Balance Truing Relationship Specialty Start Date End Date Isak August DO [address] [place] [address] PCP - General Family Medicine 11/21/20 documented as of this encounter
--- OUTSIDE RECORDS SUMMARY | 2023-04-10 18:32 | External Medical Summary | Summary of Care ---
Author Name Unknown Organization [facility] Address [address] [place] [address] Phone [phone] Care Team Providers Care Escalation Engineer Name Role Phone Isak August Primary Care Provider Reason for Visit * Reason Comments Medication Management Encounter Details Date Type Department Care Team Description 12/26/2022 Pharmacy Pharmacy Hematology Oncology [facility] [address] [place], [place] [phone] [facility] Hem/Onc [address] [place] [address] 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)* Allergies Active Allergy Reactions Severity Noted Date Comments Erythromycin Other (Please comment) 11/14/1997 Swelling and redness of arms after Erythromycin IV for pneumonia Hydrochlorothiazide Other (Please comment) 06/17/2017 Gout flare Indomethacin Other (Please comment) 11/17/2017 [place] out of body when taking. Influenza Virus [...] WITHOUT FOOD 120 Tablet 5 12/25/2022 Active documented as of this encounter [...] as of this encounter Progress Notes * Sobia Trejo, [facility] - 12/25/2022 1:38 PM EDT MEDICATION THERAPY MANAGEMENT APALUTAMIDE TREATMENT PROGRESS NOTE Mikhail Roy [phone] Patient Phone Numbers Communication: Spoke to: Patient Treatment: Medication: Apalutamide (Erleada) Indication: prostate cancer Dose: 240mg daily Administration: +/- food Start Date: 02/25/22 Primary Dry Food Products Mixer/Oncologist: Dr. Skinner Supportive Care Meds: Zometa Eligard Prophylactic Meds: Carvedilol 3.125mg BID Lisinopril 40mg daily Interval History: Pt reports no problems with BP and good at home Pt is asking if Erleada prescription can be sent to [facility] pharmacy as per new insurance [employer]. He states [facility] is filling and billing wrong insurance Changes to medication list since last visit? No Assessment and Plan: Sent apalutamide rx to [facility] as per request o Provided patient with [facility] telephone number to call to set up refill and delivery Labs from 12/23 stable with slightly elevated Ca++ 10.6 SM to scheduling pool to reschedule OV missed on 12/23 Continue current therapy Assessment of compliance: compliant Assessment of adverse effects attributed to drug therapy: Hypertension - absent Edema - absent Diarrhea - absent Fatigue -- present Seizures - absent Rash -absent Dose adjustment needed based on lab or adverse drug reaction? No Follow up: 6 weeks Sobia Trejo PharmD, BCOP Clinical Pharmacist [facility] 12/25/2022, 2:17 PM Pertinent labs: Latest Reference Range & Units 08/28/22 12:32 10/16/22 12:35 12/23/22 09:36 PSA <4.10 ng/mL 0.20 0.09 0.06 11/13/2022 12/05/2022 12/11/2022 BP AND WT. Systolic 132 114 118 Diastolic 84 60 80 Time Spent on Encounter: 11 - 15 minutes Encounter Group: Oncology Encounter Interventions Item Category: Oral Chemotherapy Apalutamide Problem/Rationale: Safety: Needs additional monitoring - Medication Requires monitoring Pharmacist Intervention(s): Care coordination, Medication prescribed and Toxicity monitoring Magnitude of Intervention: Modification of medication for asymtomatic patients (Level 2) documented in this encounter Plan of Treatment Upcoming Encounters Date Type Specialty Care Team Description 12/25/2022 Office Visit Urology Erik Benitez MD [address] [place] [address] 01/08/2023 Laboratory Laboratory [place], Lab Scenery [address] [place] [address] 01/08/2023 Hem/Onc Treatment Hematology Oncology [place], Chair 11 Hem Onc Scenery [address] [place] [address] 06/09/2023 Office Visit Family Medicine Lakisha Mclain CRNP [address] [place] [address] 12/11/2023 Office Visit Family Medicine Isak August DO [address] [place] [address] Health Maintenance Due Date Last Done Comments [...] Primary documented in this encounter Care Teams Escalation Engineer Relationship Specialty Start Date End Date Isak August DO [address] [place] [address] PCP - General Family Medicine 11/21/20 documented as of this encounter
--- OUTSIDE RECORDS SUMMARY | 2023-04-10 18:32 | External Medical Summary | Summary of Care ---
Author Name Unknown Organization [facility] Address [address] [facility] [address] Phone [phone] Care Team Providers Care Messenger Office Name Role Phone Mikki August Primary Care Provider Reason for Visit * Reason Comments Follow Up * Precert (Within 10 days (routine)) - Authorized Specialty Diagnoses / Procedures Referred By Heidy mcdonough Referred To Contact Urology Diagnoses Malignant neoplasm of prostate (HCC) Procedures [place] LEUPROLIDE ACETATE SUSPNSION Erik Benitez MD [address] [place] [address] Erik Benitez MD [address] [place] [address] Referral ID Status Reason Start Date Expiration Date V isits Requested Visits Authorized [id number] Authorized Precert 11/20/2021 05/18/2099 99 99 Encounter Details Date Type Department Care Team Description 12/25/2022 Office Visit Urology, [facility] [address] [facility] [place] [address] Erik Benitez MD [address] [place] [address] Prostate cancer (HCC)*; Prostate cancer metastatic to multiple sites (HCC); Bone lesion; Slowing of urinary stream Allergies Active Allergy Reactions Severity Noted Date Comments Erythromycin Other (Please comment) 11/14/1997 Swelling and redness of arms after Erythromycin IV for pneumonia Hydrochlorothiazide Other (Please comment) 06/17/2017 Gout flare Indomethacin Other (Please comment) 11/17/2017 [place] out of body when taking. Influenza Virus [...] 01/08/2023) Immunizations Name Administration Dates Next Due Seasonal [...] Benitez MD - 12/25/2022 3:06 PM EDT [id number] PCP: MIKKI AUGUST [address] [place] [address] [place] [address] [phone] Mikhail Roy is a 67 year old [...] comment) Gout flare Indomethacin Other (Please comment) [place] out of body when taking. Influenza Virus [...] [facility] Hem[facility]Onc [address] [place] [address] 06/09/2023 Office Visit Family Medicine Lakisha Mclain CRNP [address] [place] [address] 07/02/2023 Office Visit Urology Erik Benitez MD [address] [place] [address] 12/11/2023 Office Visit Family Medicine Mikki August DO [address] [place] [address] Health Maintenance Due Date Last Done Comments [...] Left documented in this encounter Care Teams Messenger Office Relationship Specialty Start Date End Date Mikki August DO [address] [place] [address] PCP - General Family Medicine 11/21/20 documented as of this encounter
--- OUTSIDE RECORDS SUMMARY | 2023-04-10 18:32 | External Medical Summary | Summary of Care ---
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 Influenza Virus [...] Encounters Date Type Specialty Care Team Description 01/08/2023 Office Visit Hematology Oncology Brody, Cecy Peoples MD [address] [place] [address] Arrived 01/08/2023 Hem/Onc Treatment Hematology Oncology [place], Chair 4 Hem Onc Scenery [address] [place] [address] Arrived 02/05/2023 Pharmacy Pharmacy [facility] [place] Hem/Onc [address] [place], [place] [id number] 06/09/2023 Office Visit Family Medicine Lakisha Mclain CRNP [address] [place] [address] 07/02/2023 Office Visit Urology Erik Benitez MD [address] [place] [address] [place] [address] 12/11/2023 Office Visit Family Medicine Isak August DO [address] [place] [address] Pending Results Name Type Priority Associated Diagnoses Date /Time COMPREHENSIVE METABOLIC PANEL Lab STAT 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) 01/08/2023 9:47 AM EDT Health Maintenance Due Date Last Done [...] Date/Time Associated Diagnosis Comments DIFFERENTIAL, AUTOMATED STAT 01/08/2023 9:47 AM EDT 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) CBC WITH WBC DIFFERENTIAL STAT 01/08/2023 9:47 AM EDT 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) CBC STAT 01/08/2023 9:47 AM EDT 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) documented in this encounter Results * DIFFERENTIAL, AUTOMATED (01/08/2023 9:47 AM EDT) WBC 6.74 4.00 - 10.80 K/uL 01/08/2023 9:52 AM EDT [facility] 56-02 Neutrophils % 57.1 40.0 - 75.0 % 01/08/2023 9:52 AM EDT [facility] 56-02 Lymphocytes % 30.0 18.0 - 42.0 % 01/08/2023 9:52 AM EDT [facility] 56-02 Monocytes % 8.5 1.0 - 11.0 % 01/08/2023 9:52 AM EDT [facility] 56- Eosinophils % 4.0 0.0 - 6.0 % 01/08/2023 9:52 AM EDT [facility] 56- Basophils % 0.4 0.0 - 2.0 % 01/08/2023 9:52 AM EDT [facility] 56- Absolute Neutrophils 3.85 1.80 - 7.70 K/uL 01/08/2023 9:52 AM EDT [facility] 56- Absolute Lymphocytes 2.02 1.00 - 4.80 K/ul 01/08/2023 9:52 AM EDT [facility] 56- Absolute Monocytes 0.57 0.00 - 1.10 K/uL 01/08/2023 9:52 AM EDT [facility] 56- Absolute Eosinophils 0.27 0.00 - 0.70 K/uL 01/08/2023 9:52 AM EDT [facility] 56- Absolute Basophils 0.03 0.00 - 0.20 K/uL 01/08/2023 9:52 AM EDT [facility] 56 Blood Venous blood specimen / Unknown Venipuncture / Unknown 01/08/2023 9:47 AM EDT 01/08/2023 9:47 AM EDT Cecy Skinner MD LAB BLOOD ORDERA BLES [facility] [address] [place] [address] * (ABNORMAL) CBC (01/08/2023 9:47 AM EDT) Pathologist [facility] WBC 6.74 4.00 - 10.80 K/uL 01/08/2023 9:52 AM EDT [facility] 56- RBC 3.99 4.50 - 5.25 M/uL 01/08/2023 9:52 AM EDT [facility] 56 HGB 12.0(L) 14.0 - 16.8 g/dL 01/08/2023 9:52 AM EDT [facility] 56- HCT 35.8(L) 40.0 - 48.4 % 01/08/2023 9:52 AM EDT [facility] 56 MCV 89.7 82.0 - 99.5 fL 01/08/2023 9:52 AM EDT [facility] 56 MCH 30.1 27.0 - 34.0 pg 01/08/2023 9:52 AM EDT [facility] 56 MCHC 33.5 32.0 - 36.0 g/dL 01/08/2023 9:52 AM EDT [facility] 56 RDW 12.5 11.5 - 15.5 % 01/08/2023 9:52 AM EDT [facility] 56 PLT 188 140 - 400 K/uL 01/08/2023 9:52 AM EDT [facility] 56 MPV 10.7 6.6 - 11.1 fL 01/08/2023 9:52 AM EDT [facility] 56 Blood Venous blood specimen / Unknown Venipuncture / Unknown 01/08/2023 9:47 AM EDT 01/08/2023 9:47 AM EDT Cecy Skinner MD LAB BLOOD ORDERA BLES [facility] [address] [place] [address] documented in this encounter Visit Diagnoses Diagnosis 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
--- OUTSIDE RECORDS SUMMARY | 2023-04-10 18:32 | External Medical Summary ---
Author Name Unknown Address Unknown Organization [id number]:[facility] [place] [address] Laboratory Report Ordering Provider Test Date Status AB TEJEDA 01/08/2023 09:47:03 Final Observation Date Value Abnormality Reference (Units ) Status SYNC LEUKOCYTES IN BLOOD BY AUTOMATED COUNT 01/08/2023 09:47:03 6.74 4.00-10.80 (K/uL) Final Segs 01/08/2023 09:47:03 57.1 40.0-75.0 (%) Final Lymphs % 01/08/2023 09:47:03 30.0 18.0-42.0 (%) Final Monos 01/08/2023 09:47:03 8.5 1.0-11.0 (%) Final Eosinophils 01/08/2023 09:47:03 4.0 0.0-6.0 (%) Final Basos 01/08/2023 09:47:03 0.4 0.0-2.0 (%) Final Absolute Segs 01/08/2023 09:47:03 3.85 1.80-7.70 (K/uL) Final Lymphs, absolute 01/08/2023 09:47:03 2.02 1.00-4.80 (K/ul) Final Monos, Abs 01/08/2023 09:47:03 0.57 0.00-1.10 (K/uL) Final Eos, Abs 01/08/2023 09:47:03 0.27 0.00-0.70 (K/uL) Final Basos, Abs 01/08/2023 09:47:03 0.03 0.00-0.20 (K/uL) Final Performing Location [facility] [place] [address]
--- OUTSIDE RECORDS SUMMARY | 2023-04-10 18:32 | External Medical Summary | Summary of Care ---
Author Name Unknown Organization [facility] Address [address] [facility] [address] Phone [phone] Care Team Providers Care Log Stacker Operator Name Role Phone Mikki August Primary Care Provider Reason for Visit * Reason Comments Follow Up * Precert (Within 10 days (routine)) - Authorized Specialty Diagnoses / Procedures Referred By Heidy mcdonough Referred To Contact Urology Diagnoses Malignant neoplasm of prostate (HCC) Procedures AL LEUPROLIDE ACETATE SUSPNSION Erik Benitez MD [address] [place] [address] Erik Benitez MD [address] [place] [address] Referral ID Status Reason Start Date Expiration Date V isits Requested Visits Authorized [id number] Authorized Precert 11/20/2021 05/18/2099 99 99 Encounter Details Date Type Department Care Team Description 12/25/2022 Office Visit Urology, [facility] [address] [facility] [place] [address] Erik Benitez MD [address] [place] [address] Prostate cancer (HCC)*; Prostate cancer metastatic to multiple sites (HCC); Bone lesion; Slowing of urinary stream Allergies Active Allergy Reactions Severity Noted Date Comments Erythromycin Other (Please comment) 11/14/1997 Swelling and redness of arms after Erythromycin IV for pneumonia Hydrochlorothiazide Other (Please comment) 06/17/2017 Gout flare Indomethacin Other (Please comment) 11/17/2017 [place] out of body when taking. Influenza Virus [...] 12/25/2022) Immunizations Name Administration Dates Next Due Seasonal [...] Benitez MD - 12/25/2022 3:06 PM EDT [id number] PCP: MIKKI AUGUST [address] [place] [address] [place] [address] [phone] Mikhail Roy is a 67 year old [...] comment) Gout flare Indomethacin Other (Please comment) [place] out of body when taking. 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)* 01/08/2023 Laboratory Laboratory [place], Lab Scenery [address] [place] [address] 01/08/2023 Hem/Onc Treatment Hematology Oncology [place], Chair 11 Hem Onc Scenery [address] [place] [address] 02/05/2023 Pharmacy Pharmacy [facility] Hem/Onc [address] [place] [address] 06/09/2023 Office Visit Family Medicine Lakisha Mclain CRNP [address] [place] [address] 07/02/2023 Office Visit Urology Erik Benitez MD [address] [place] [id number] 12/11/2023 Office Visit Family Medicine Mikki August DO [address] [place] [address] Health Maintenance Due Date Last Done Comments [...] and cartilage, unspecified Slowing of urinary stream 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
--- OUTSIDE RECORDS SUMMARY | 2023-04-10 18:32 | External Medical Summary | Summary of Care ---
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 Influenza Virus [...] Encounters Date Type Specialty Care Team Description 12/11/2022 Hem/Onc Treatment Hematology Oncology [place], Chair 10 Hem Onc Scenery [address] [place] [address] Arrived 12/25/2022 Office Visit Urology Erik Benitez MD [address] [place] [address] [place] [address] 12/26/2022 Pharmacy Pharmacy [facility] [place] Hem/Onc [address] [place] [address] 06/09/2023 Office Visit Family Medicine Lakisha Mclain CRNP [address] [place] [address] 12/11/2023 Office Visit Family Medicine Isak August DO [address] [place] [address] Pending Results Name Type Priority Associated Diagnoses Date /Time COMPREHENSIVE METABOLIC PANEL Lab STAT 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) 12/11/2022 12:40 PM EDT HEMOGLOBIN A1C Lab Routine Diabetes mellitus without complication (HCC) 12/11/2022 12:40 PM EDT Health Maintenance Due Date Last Done Comments COVID-19 Vaccine (#1) 1962 Pneumococcal Vaccine: 65+ Years (1 - PCV) 08/27/1963 Zoster Vaccines (1 of 2) 1976 Cologuard 2002 Colonoscopy 2002 Fecal Occult Blood Test 2002 Sigmoidoscopy 2002 AAA Screening 2022 HbA1c 11/26/2022 05/29/2022, 06/0 11/2021, 11/21/2020, Additional history exists Albumin/Creatinine Ratio 05/29/2023 05/29/2022 DIABETES-EYE EXAM 08/01/2023 07/31/2022, , 05/04/2019 GFR 11/14/2023 11/13/2022, 09/18, 09/18/2022, Additional history exists DIABETES-FOOT EXAM 12/06/2023 12/05/2022, 0 12/05/2022, 11/22/2021, Additional history exists Depression Screening, Annual for Pts 12 and Over 12/06/2023 12/05/2022 Lipid Panel 08/22/2027 08/21/2022, 05/19, 10/23/2021, Additional [...] Date/Time Associated Diagnosis Comments DIFFERENTIAL, AUTOMATED STAT 12/11/2022 12:40 PM EDT 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) CBC WITH WBC DIFFERENTIAL STAT 12/11/2022 12:40 PM EDT 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) CBC STAT 12/11/2022 12:40 PM EDT 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) documented in this encounter Results * DIFFERENTIAL, AUTOMATED (12/11/2022 12:40 PM EDT) WBC 7.86 4.00 - 10.80 K/uL 12/11/2022 12:45 PM EDT [facility] 56-02 Neutrophils % 56.4 40.0 - 75.0 % 12/11/2022 12:45 PM EDT [facility] 56-02 Lymphocytes % 31.2 18.0 - 42.0 % 12/11/2022 12:45 PM EDT [facility] 56-02 Monocytes % 8.5 1.0 - 11.0 % 12/11/2022 12:45 PM EDT [facility] 56-02 Eosinophils % 3.4 0.0 - 6.0 % 12/11/2022 12:45 PM EDT [facility] 56-02 Basophils % 0.5 0.0 - 2.0 % 12/11/2022 12:45 PM EDT [facility] Absolute Neutrophils 4.43 1.80 - 7.70 K/uL 12/11/2022 12:45 PM EDT [facility] Absolute Lymphocytes 2.45 1.00 - 4.80 K/ul 12/11/2022 12:45 PM EDT [facility] Absolute Monocytes 0.67 0.00 - 1.10 K/uL 12/11/2022 12:45 PM EDT [facility] Absolute Eosinophils 0.27 0.00 - 0.70 K/uL 12/11/2022 12:45 PM EDT [facility] Absolute Basophils 0.04 0.00 - 0.20 K/uL 12/11/2022 12:45 PM EDT [facility] Blood Venous blood specimen / Unknown Venipuncture / Unknown 12/11/2022 12:40 PM EDT 12/11/2022 12:40 PM EDT Cecy Skinner MD LAB BLOOD ORDERA BLES [facility] [address] [place] [address] * (ABNORMAL) CBC (12/11/2022 12:40 PM EDT) WBC 7.86 4.00 - 10.80 K/uL 12/11/2022 12:45 PM EDT [facility] RBC 4.10 4.50 - 5.25 M/uL 12/11/2022 12:45 PM EDT [facility] HGB 12.5(L) 14.0 - 16.8 g/dL 12/11/2022 12:45 PM EDT [facility] HCT 36.4(L) 40.0 - 48.4 % 12/11/2022 12:45 PM EDT [facility] MCV 88.8 82.0 - 99.5 fL 12/11/2022 12:45 PM EDT [facility] MCH 30.5 27.0 - 34.0 pg 12/11/2022 12:45 PM EDT [facility] MCHC 34.3 32.0 - 36.0 g/dL 12/11/2022 12:45 PM EDT [facility] RDW 12.5 11.5 - 15.5 % 12/11/2022 12:45 PM EDT [facility] PLT 195 140 - 400 K/uL 12/11/2022 12:45 PM EDT [place] [address] MPV 11.4 6.6 - 11.1 fL 12/11/2022 12:45 PM EDT [facility] Blood Venous blood specimen / Unknown Venipuncture / Unknown 12/11/2022 12:40 PM EDT 12/11/2022 12:40 PM EDT Cecy Skinner MD LAB BLOOD ORDERA BLES [facility] [address] [place] [address] documented in this encounter Visit Diagnoses Diagnosis 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
--- OUTSIDE RECORDS SUMMARY | 2023-04-10 18:32 | External Medical Summary ---
Author Name Unknown Address Unknown Organization K09:[facility] [place] [address] Laboratory Report Ordering Provider Test Date Status AB TEJEDA 01/08/2023 09:47:03 Final Observation Date Value Abnormality Reference (Units ) Status WBC, Total 01/08/2023 09:47:03 6.74 4.00-10.8 0 (K/uL) Final RBC 01/08/2023 09:47:03 3.99 4.50-5.25 (M/uL) Final Hemoglobin 01/08/2023 09:47:03 12.0 Below low normal 14 .0-16.8 (g/dL) Final HCT 01/08/2023 09:47:03 35.8 Below low normal 40. 0-48.4 (%) Final MCV 01/08/2023 09:47:03 89.7 82.0-99.5 (fL) Final MCH 01/08/2023 09:47:03 30.1 27.0-34.0 (pg) Final MCHC 01/08/2023 09:47:03 33.5 32.0-36.0 (g/dL) Final RDW 01/08/2023 09:47:03 12.5 11.5-15.5 (%) Final Platelets 01/08/2023 09:47:03 188 140-400 (K /uL) Final MPV 01/08/2023 09:47:03 10.7 6.6-11.1 ( fL) Final Performing Location [facility] [place] [address]
--- OUTSIDE RECORDS SUMMARY | 2023-04-10 18:32 | External Medical Summary ---
Author Name Unknown Address Unknown Organization K0G:[facility] [address] [place] [address] Laboratory Report Ordering Provider Test Date Status AB TEJEDA 12/23/2022 09:36:25 Final Observation Date Value Abnormality Reference (Units ) Status WBC, Total 12/23/2022 09:36:25 6.26 4.00-10.8 0 (K/uL) Final RBC 12/23/2022 09:36:25 3.96 4.50-5.25 (M/uL) Final Hemoglobin 12/23/2022 09:36:25 12.1 Below low normal 14 .0-16.8 (g/dL) Final HCT 12/23/2022 09:36:25 35.4 Below low normal 40. 0-48.4 (%) Final MCV 12/23/2022 09:36:25 89.4 82.0-99.5 (fL) Final MCH 12/23/2022 09:36:25 30.6 27.0-34.0 (pg) Final MCHC 12/23/2022 09:36:25 34.2 32.0-36.0 (g/dL) Final RDW 12/23/2022 09:36:25 12.3 11.5-15.5 (%) Final Platelets 12/23/2022 09:36:25 187 140-400 (K /uL) Final MPV 12/23/2022 09:36:25 10.7 6.6-11.1 ( fL) Final Performing Location [facility] [address] [place] [address]
--- OUTSIDE RECORDS SUMMARY | 2023-04-10 18:32 | External Medical Summary | Summary of Care ---
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) Procedures CO ZOLEDRONIC ACID 1MG Cecy Skinner MD [address] [place] [address] Anc Hem/Onc Scen[place] [address] [place] [address] Referral ID Status Reason Start Date Expiration Date V isits Requested Visits Authorized [id number] Authorized 01/14/2022 05/18/2099 99 99 Encounter Details Date Type Department Care Team Description 12/11/2022 Hem/Onc Treatment Hematology/Oncology Treatment, [place] [address] [place] [address] Subha, Chair 10 Hem Onc [place] [address] [place] [id number] 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 Influenza Virus [...] Benitez MD [address] [place] [address] 12/26/2022 Pharmacy Pharmacy [facility] [place] [address] [facility] [phone] 01/08/2023 Laboratory Laboratory [place], Lab Scenery [address] [place] [address] 01/08/2023 Hem/Onc Treatment Hematology Oncology [place], Chair 11 Hem Onc Scenery [address] [place] [address] 06/09/2023 Office Visit Family Medicine Lakisha Mclain CRNP [address] [place] [address] 12/11/2023 Office Visit Family Medicine Isak August DO [address] [place] [address] Health Maintenance Due Date Last Done Comments [...] mL/hr documented in this encounter Care Teams Agronomy Advisor Relationship Specialty Start Date End Date Isak August DO [address] [place] [address] PCP - General Family Medicine 11/21/20 documented as of this encounter
--- OUTSIDE RECORDS SUMMARY | 2023-04-10 18:32 | External Medical Summary ---
Author Name Unknown Address Unknown Organization K0G:[facility] [address] [place] [address] Laboratory Report Ordering Provider Test Date Status AB TEJEDA 12/23/2022 09:36:25 Final Observation Date Value Abnormality Reference (Units ) Status SYNC LEUKOCYTES IN BLOOD BY AUTOMATED COUNT 12/23/2022 09:36:25 6.26 4.00-10.80 (K/uL) Final Segs 12/23/2022 09:36:25 58.0 40.0-75.0 (%) Final Lymphs % 12/23/2022 09:36:25 30.2 18.0-42.0 (%) Final Monos 12/23/2022 09:36:25 8.1 1.0-11.0 (%) Final Eosinophils 12/23/2022 09:36:25 3.4 0.0-6.0 (%) Final Basos 12/23/2022 09:36:25 0.3 0.0-2.0 (%) Final Absolute Segs 12/23/2022 09:36:25 3.63 1.80-7.70 (K/uL) Final Lymphs, absolute 12/23/2022 09:36:25 1.89 1.00-4.80 (K/ul) Final Monos, Abs 12/23/2022 09:36:25 0.51 0.00-1.10 (K/uL) Final Eos, Abs 12/23/2022 09:36:25 0.21 0.00-0.70 (K/uL) Final Basos, Abs 12/23/2022 09:36:25 0.02 0.00-0.20 (K/uL) Final Performing Location [facility] [address] [place] [address]
--- OUTSIDE RECORDS SUMMARY | 2023-04-10 18:32 | External Medical Summary | Summary of Care ---
Author Name Unknown Organization [facility] Address [address] [facility] [address] Phone [phone] Care Team Providers Care Mica Miner Blasting Name Role Phone Isak August Primary Care Provider Reason for Visit * Reason Onset Date Comments Pre Cert/Prior Auth 12/26/2022 Sarah Encounter Details Date Type Department Care Team Description 12/26/2022 Telephone Hematology/Oncology [facility] [place] [address] [facility] [place] [address] Cecy Skinner MD 200 [facility] [place] [address] Pre Cert/Prior Auth (Sarah) Allergies Active Allergy Reactions Severity Noted Date Comments Erythromycin Other (Please comment) 11/14/1997 Swelling and redness of arms after Erythromycin IV for pneumonia Hydrochlorothiazide Other (Please comment) 06/17/2017 Gout flare Indomethacin Other (Please comment) 11/17/2017 [place] out of body when taking. Influenza Virus Vacc 01/29/2011 Had flu like reaction after taking it. documented as of this encounter (statuses as of 12/26/2022) Medications Medication Sig Dispensed Refills Start Date [...] as of this encounter (statuses as of 12/26/2022) Active Problems Problem Noted Date Metastatic castration-sensitive [...] as of this encounter (statuses as of 12/26/2022) Resolved Problems Problem Noted Date Resolved Date [...] as of this encounter (statuses as of 12/26/2022) Immunizations Name Administration Dates Next Due Seasonal [...] Miscellaneous Notes * Telephone Encounter - VALERIO Tapia - 12/26/2022 1:12 PM EDT [facility] Authorization Submission Submission Information: Medication: Erleada 60MG tablets Portal used: [facility] Insurance: [employer] Authorization #/Hubbard: [id number] Thank you, Sarah Kennedy Medication Shot Grinder Operator 12/26/2022, 1:12 PM * Telephone Encounter - ROSAS Crouch Tech - 12/26/2022 9:47 AM EDT Helen calling to inform doctor that the patient's insurance will not pay for this medication without a completed prior authorization. Did confirm this information with the pharmacy. Pt's current insurance information is as follows: Patient name: Mikhail Roy ID number: [id number] BIN number: [id number] PCN number: [id number] Group number: [id number] Subscriber name: Mikhail Roy Primary or Secondary Insurance:Primary Medication: Erleada 60mg Reason for Request: Needs Prior Auth Pharmacy and phone number: [facility], , Prior Auth [phone] Rx plan and phone number: [phone] What alternative medications does the pharmacy have in stock?: n/a Thank you, Alexa Matos Perfect Binder Feeder Offbearer 12/26/2022,9:54 AM documented in this encounter Plan of Treatment Upcoming Encounters Date Type Specialty Care Team Description 01/01/2023 Imaging Radiology 01/01/2023 Imaging Radiology 01/08/2023 Laboratory Laboratory [facility] [address] [place] [address] 01/08/2023 Office Visit Hematology Oncology Cecy Skinner MD [address] [place] [address] 01/08/2023 Hem/Onc Treatment Hematology Oncology [place], Chair 4 Hem Onc Scenery [address] [facility] [address] 02/05/2023 Pharmacy Pharmacy [facility] Hem/Onc [address] [place] [address] 06/09/2023 Office Visit Family Medicine Lakisha Mclain CRNP [address] [place] [address] 07/02/2023 Office Visit Urology Erik Benitez MD [address] [place] [address] [place] [address] 12/11/2023 Office Visit Family Medicine Isak August DO [address] [place] [address] Health Maintenance Due Date Last Done Comments [...] filedocumented as of this encounter Care Teams Mica Miner Blasting Relationship Specialty Start Date End Date Isak August DO [address] [place] [address] PCP - General Family Medicine 11/21/20 documented as of this encounter
--- OUTSIDE RECORDS SUMMARY | 2023-04-10 18:32 | External Medical Summary | Summary of Care ---
Author Name Unknown Organization [facility] Address [address] [facility] [place] [address] Phone [phone] Care Team Providers Care Adult Live In Caregiver Name Role Phone Isak August Primary Care Provider Reason for Visit * Reason Onset Date Comments Precert Approved 12/26/2022 Encounter Details Date Type Department Care Team Description 12/26/2022 Telephone Hematology/Oncology [facility] [place] 200 [facility] [place] [address] Cecy Skinner MD 200 [facility] [place] [address] Precert Approved Allergies Active Allergy Reactions Severity Noted Date Comments Erythromycin Other (Please comment) 11/14/1997 Swelling and redness of arms after Erythromycin IV for pneumonia Hydrochlorothiazide Other (Please comment) 06/17/2017 Gout flare Indomethacin Other (Please comment) 11/17/2017 [place] out of body when taking. Influenza Virus Vacc 01/29/2011 Had flu like reaction after taking it. documented as of this encounter (statuses as of 12/27/2022) Medications Medication Sig Dispensed Refills Start Date [...] as of this encounter (statuses as of 12/27/2022) Active Problems Problem Noted Date Metastatic castration-sensitive [...] as of this encounter (statuses as of 12/27/2022) Resolved Problems Problem Noted Date Resolved Date [...] as of this encounter (statuses as of 12/27/2022) Immunizations Name Administration Dates Next Due Seasonal [...] * Telephone Encounter - VALERIO Tapia - 12/27/2022 2:29 PM EDT New or re-auth: New authorization Approved/Denied: Approved Drug Name and Formulation: Erleada 60MG tablets How Prescribed(directions/sig): TAKE 4 TABLETS (240 MG) DAILY. TAKE WITH OR WITHOUT FOOD Day Supply: 30 Did you receive insurance information from outside the chart? No, received insurance information within the chart Valid auth start date: 12/26/2022 Valid auth end date: 06/24/2023 Rx Insurance Info: Hum[employer] Rx Benefits Verified through/on date: 12/26/2022 Referral (TE) received from: [facility] Thank you, Sarah Kennedy Medication Plant Protection Supervisor 12/27/2022, 2:29 PM * Telephone Encounter - VALERIO Tapia - 12/26/2022 1:12 PM EDT [facility] Authorization Submission Submission Information: Medication: Erleada 60MG tablets Portal used: [facility] Insurance: Hum[employer] Authorization #/[place]: [id number] Thank you, Sarah Kennedy Medication Plant Protection Supervisor 12/26/2022, 1:12 PM * Telephone Encounter - Alexa Matos, otorhinolaryngologist - 12/26/2022 9:47 AM EDT Helen calling to inform doctor that the patient's insurance will not pay for this medication without a completed prior authorization. Did confirm this information with the pharmacy. Pt's current insurance information is as follows: Patient name: Mikhail Roy ID number: [id number] BIN number: [id number] PCN number: [id number] Group number: [id number] Subscriber name: Mikhail Roy Primary or Secondary Insurance:Primary Medication: Erleada 60mg Reason for Request: Needs Prior Auth Pharmacy and phone number: [facility], , Prior Auth Rx plan and phone number: [phone] What alternative medications does the pharmacy have in stock?: n/a Thank you, Alexa Matos Oakes Machine Operator 12/26/2022,9:54 AM documented in this encounter Plan of Treatment Upcoming Encounters Date Type Specialty Care Team Description 01/01/2023 Imaging Radiology 01/01/2023 Imaging Radiology 01/08/2023 Laboratory Laboratory [place], Lab Scenery [address] [place] [address] 01/08/2023 Office Visit Hematology Oncology Cecy Skinner MD [address] [place] [address] 01/08/2023 Hem/Onc Treatment Hematology Oncology [place], Chair 4 Hem Onc Scenery [address] [place] [address] 02/05/2023 Pharmacy Pharmacy [facility] [place] Hem/Onc [address] [place], [place] [id number] 06/09/2023 Office Visit Family Medicine Lakisha Mclain CRNP [address] [place] [address] 07/02/2023 Office Visit Urology Erik Benitez MD [address] [place] [address] 12/11/2023 Office Visit Family Medicine Isak August DO [address] [place] [address] Health Maintenance Due Date Last Done Comments [...] filedocumented as of this encounter Care Teams Adult Live In Caregiver Relationship Specialty Start Date End Date Isak August DO [address] [place] [address] PCP - General Family Medicine 11/21/20 documented as of this encounter
--- OUTSIDE RECORDS SUMMARY | 2023-04-10 18:32 | External Medical Summary | Summary of Care ---
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 Influenza Virus Vacc 01/29/2011 Had flu like reaction after taking it. documented as of this encounter (statuses as of 12/23/2022) Medications Medication Sig Dispensed Refills Start Date [...] as of this encounter (statuses as of 12/23/2022) Active Problems Problem Noted Date Metastatic castration-sensitive [...] as of this encounter (statuses as of 12/23/2022) Resolved Problems Problem Noted Date Resolved Date [...] as of this encounter (statuses as of 12/23/2022) Immunizations Name Administration Dates Next Due TDAP [...] [address] [place] [address] [place] [id number] 12/26/2022 Pharmacy Pharmacy [facility] [place] Hem/Onc [address] [place] [address] 01/08/2023 Laboratory Laboratory [place], Lab Scenery [address] [facility] [address] 01/08/2023 Hem/Onc Treatment Hematology Oncology [place], Chair 11 Hem Onc Scenery [address] [place] [address] 06/09/2023 Office Visit Family Medicine Lakisha Mclain CRNP [address] [place] [address] 12/11/2023 Office Visit Family Medicine Isak August DO [address] [place] [address] Pending Results Name Type Priority Associated Diagnoses Date /Time COMPREHENSIVE METABOLIC PANEL Lab Routine 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) 12/23/2022 9:36 AM EDT PSA Lab Routine 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) 12/23/2022 9:36 AM EDT TESTOSTERONE, TOTAL Lab Routine 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) 12/23/2022 9:36 AM EDT Health Maintenance Due Date Last [...] Date/Time Associated Diagnosis Comments DIFFERENTIAL, AUTOMATED Routine 12/23/2022 9:36 AM EDT 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) CBC WITH WBC DIFFERENTIAL Routine 12/23/2022 9:36 AM EDT 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) CBC Routine 12/23/2022 9:36 AM EDT 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) documented in this encounter Results * DIFFERENTIAL, AUTOMATED (12/23/2022 9:36 AM EDT) WBC 6.26 4.00 - 10.80 K/uL 12/23/2022 9:51 AM EDT [facility] [place] [facility] Neutrophils % 58.0 40.0 - 75.0 % 12/23/2022 9:51 AM EDT [facility] [place] [facility] Lymphocytes % 30.2 18.0 - 42.0 % 12/23/2022 9:51 AM EDT [facility] [place] [facility] Monocytes % 8.1 1.0 - 11.0 % 12/23/2022 9:51 AM EDT [facility] [place] [facility] Eosinophils % 3.4 0.0 - 6.0 % 12/23/2022 9:51 AM EDT [facility] [place] [facility] Basophils % 0.3 0.0 - 2.0 % 12/23/2022 9:51 AM EDT [facility] [place] [facility] Absolute Neutrophils 3.63 1.80 - 7.70 K/uL 12/23/2022 9:51 AM EDT [facility] [place] [facility] Absolute Lymphocytes 1.89 1.00 - 4.80 K/ul 12/23/2022 9:51 AM EDT [facility] [place] [facility] Absolute Monocytes 0.51 0.00 - 1.10 K/uL 12/23/2022 9:51 AM EDT [facility] [place] [facility] Absolute Eosinophils 0.21 0.00 - 0.70 K/uL 12/23/2022 9:51 AM EDT [facility] [place] [facility] Absolute Basophils 0.02 0.00 - 0.20 K/uL 12/23/2022 9:51 AM EDT [facility] [place] [facility] Blood Venous blood specimen / Unknown Venipuncture / Unknown 12/23/2022 9:36 AM EDT 12/23/2022 9:36 AM EDT Cecy Skinner MD LAB BLOOD ORDERA BLES [facility] [place] [facility] [address] [place] [address] * (ABNORMAL) CBC (12/23/2022 9:36 AM EDT) [facility] WBC 6.26 4.00 - 10.80 K/uL 12/23/2022 9:51 AM EDT [facility] [place] [facility] RBC 3.96 4.50 - 5.25 M/uL 12/23/2022 9:51 AM EDT [facility] [place] [facility] HGB 12.1(L) 14.0 - 16.8 g/dL 12/23/2022 9:51 AM EDT [facility] [place] [facility] HCT 35.4(L) 40.0 - 48.4 % 12/23/2022 9:51 AM EDT [facility] [place] [facility] MCV 89.4 82.0 - 99.5 fL 12/23/2022 9:51 AM EDT [facility] [place] [facility] MCH 30.6 27.0 - 34.0 pg 12/23/2022 9:51 AM EDT [facility] [place] [facility] MCHC 34.2 32.0 - 36.0 g/dL 12/23/2022 9:51 AM EDT [facility] [place] [facility] RDW 12.3 11.5 - 15.5 % 12/23/2022 9:51 AM EDT [facility] [place] [facility] PLT 187 140 - 400 K/uL 12/23/2022 9:51 AM EDT [facility] [place] [facility] MPV 10.7 6.6 - 11.1 fL 12/23/2022 9:51 AM EDT [facility] [place] [facility] Blood Venous blood specimen / Unknown Venipuncture / Unknown 12/23/2022 9:36 AM EDT 12/23/2022 9:36 AM EDT Cecy Skinner MD LAB BLOOD ORDERA BLES [facility] [place] [facility] [place] [address] documented in this encounter Visit Diagnoses Diagnosis 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
--- OUTSIDE RECORDS SUMMARY | 2023-04-10 18:32 | External Medical Summary | Summary of Care ---
Author Name Unknown Organization [facility] Address [address] [facility] [place] [address] Phone [phone] Care Team Providers Care Seafood Team Member Name Role Phone Isak August Primary Care Provider Reason for Visit * Reason Onset Date Comments Test Results Imaging Study 01/02/2023 Encounter Details Date Type Department Care Team Description 01/02/2023 Telephone Hematology/Oncology [facility] [place] 200 [facility] [place] [address] Cecy Skinner MD 200 [facility] [place] [address] Test Results Imaging Study Allergies Active Allergy Reactions Severity Noted Date Comments Erythromycin Other (Please comment) 11/14/1997 Swelling and redness of arms after Erythromycin IV for pneumonia Hydrochlorothiazide Other (Please comment) 06/17/2017 Gout flare Indomethacin Other (Please comment) 11/17/2017 [place] out of body when taking. Influenza Virus Vacc 01/29/2011 Had flu like reaction after taking it. documented as of this encounter (statuses as of 01/02/2023) Medications Medication Sig Dispensed Refills Start Date [...] as of this encounter (statuses as of 01/02/2023) Active Problems Problem Noted Date Metastatic castration-sensitive [...] as of this encounter (statuses as of 01/02/2023) Resolved Problems Problem Noted Date Resolved Date [...] as of this encounter (statuses as of 01/02/2023) Immunizations Name Administration Dates Next Due TDAP [...] encounter Miscellaneous Notes * Telephone Encounter - Carmen Del Angel LPN - 01/02/2023 8:52 AM EDT ----- Message from Cecy Skinner MD sent at 01/01/2023 9:29 PM EDT ----- On bone scan Decreased intensity of uptake associated with a stable burden of osseous metastatic disease. No newfoci of uptake. documented in this encounter Plan of Treatment Upcoming Encounters Date Type Specialty Care Team Description 01/08/2023 Laboratory Laboratory [place], Lab Scenery [address] [place] [address] 01/08/2023 Office Visit Hematology Oncology Cecy Skinner MD [address] [place] [address] 01/08/2023 Hem/Onc Treatment Hematology Oncology [place], Chair 4 Hem Onc Scenery [address] [place] [address] 02/05/2023 Pharmacy Pharmacy [facility] [place] Hem/Onc [address] [place], [place] [id number] 06/09/2023 Office Visit Family Medicine Lakisha Mclain CRNP [address] [place] [address] 07/02/2023 Office Visit Urology Erik Benitez MD [address] [place] [address] [place] [address] 12/11/2023 Office Visit Family Medicine Isak August DO [address] [place] [address] Health Maintenance Due Date Last Done Comments [...] filedocumented as of this encounter Care Teams Seafood Team Member Relationship Specialty Start Date End Date Isak August DO [address] [place] [address] PCP - General Family Medicine 11/21/20 documented as of this encounter
--- OUTSIDE RECORDS SUMMARY | 2023-04-10 18:32 | External Medical Summary ---
Author Name Unknown Address Unknown Organization [facility] [place] [facility] [address] - [address] [place] [address] Laboratory Report Ordering Provider Test Date Status AB TEJEDA 12/23/2022 09:36:25 Final Observation Date Value Abnormality Reference (Units ) Status BUN 12/23/2022 09:36:25 28 Above high normal 6-20 (mg/dL) Final Creatinine 12/23/2022 09:36:25 1.0 0.6-1.2 (mg/dL) Final Glomerular filtration rate/1.73 sq M.predicted [Volume Rate/Area] in Serum, Plasma or Blood by Creatinine-based formula (CKD-EPI) 12/23/2022 09:36:25 89 >=60 (mL/min) Final eGFR is calculated based on the CKD-EPI 2020 equation SODIUM 12/23/2022 09:36:25 135 135-146 (m mol/L) Final Potassium 12/23/2022 09:36:25 5.0 3.5-5.1 (m mol/L) Final Cl 12/23/2022 09:36:25 99 98-107 (mm ol/L) Final CO2 12/23/2022 09:36:25 26 22-32 (mmo l/L) Final Anion gap 12/23/2022 09:36:25 10 7-15 (mmol /L) Final Glucose 12/23/2022 09:36:25 271 Above high normal 70 -120 (mg/dL) Final Albumin 12/23/2022 09:36:25 4.5 3.8-5.0 (g /dL) Final AST (Aspartate aminotransferase) 12/23/2022 09:36:25 27 10-50 (U/L) Fin al Alk Phos 12/23/2022 09:36:25 59 35-130 (U/ L) Final Bilirubin, Total 12/23/2022 09:36:25 0.2 <=1 .2 (mg/dL) Final Calcium 12/23/2022 09:36:25 10.6 Above high normal 8. 4-10.2 (mg/dL) Final Protein 12/23/2022 09:36:25 6.6 6.0-8.3 (g /dL) Final ALT (Alanine aminotransferase) 12/23/2022 09:36:25 31 10-50 (U/L) Brendon vargas Performing Location [facility] [place] [facility] - [address] [facility] [address]
--- OUTSIDE RECORDS SUMMARY | 2023-04-10 18:32 | External Medical Summary | Summary of Care ---
Author Name Unknown Organization [facility] Address [address] [facility] [place] [address] Phone [phone] Care Team Providers Care Clinical Data Research Name Role Phone Isak August Primary Care Provider Reason for Visit * Reason Onset Date Comments Pre Cert/Prior Auth 12/26/2022 Encounter Details Date Type Department Care Team Description 12/26/2022 Telephone Hematology/Oncology [facility] [place] 200 [facility] [place] [address] Cecy Skinner MD 200 [facility] [place] [address] Pre Cert/Prior Auth Allergies Active Allergy Reactions Severity Noted Date Comments Erythromycin Other (Please comment) 11/14/1997 Swelling and redness of arms after Erythromycin IV for pneumonia Hydrochlorothiazide Other (Please comment) 06/17/2017 Gout flare Indomethacin Other (Please comment) 11/17/2017 [place] out of body when taking. Influenza Virus [...] 12/26/2022) Immunizations Name Administration Dates Next Due TDAP [...] encounter Miscellaneous Notes * Telephone Encounter - Alexa Matos, cash specialist - 12/26/2022 9:47 AM EDT Helen calling to inform doctor that the patient's insurance will not pay for this medication without a completed prior authorization. Did confirm this information with the pharmacy. Pt's current insurance information is as follows: Patient name: Mikhail Roy ID number: [id number] BIN number: [id number] PCN number: [id number] Group number: [id number] Subscriber name: Mikhail Roy Primary or Secondary Insurance:Primary Medication: Erleada 60mg Reason for Request: Needs Prior Auth Pharmacy and phone number: [facility], , Prior Auth [phone] Rx plan and phone number: [phone] What alternative medications does the pharmacy have in stock?: n/a Thank you, Alexa Matos Bisque Brusher 12/26/2022,9:54 AM documented in this encounter Plan of Treatment Upcoming Encounters Date Type Specialty Care Team Description 01/01/2023 Imaging Radiology 01/01/2023 Imaging Radiology 01/08/2023 Laboratory Laboratory [place], Lab Scene 200 [facility] [place] [address] 01/08/2023 Office Visit Hematology Oncology Cecy Skinner MD [address] [place] [address] 01/08/2023 Hem/Onc Treatment Hematology Oncology [place], Chair 4 Hem Onc Scenery 200 [facility] [place] [address] 02/05/2023 Pharmacy Pharmacy [facility] [place] Hem/Onc [address] [facility] [place] [phone] 06/09/2023 Office Visit Family Medicine Lakisha Mclain CRNP [address] [facility] [place] [address] 07/02/2023 Office Visit Urology Erik Benitez MD [address] [place] [address] [place] [address] 12/11/2023 Office Visit Family Medicine Isak August DO [address] [place] [address] Health Maintenance Due Date Last Done Comments [...] filedocumented as of this encounter Care Teams Clinical Data Research Relationship Specialty Start Date End Date Isak August, [address] [place] [address] PCP - General Family Medicine 11/21/20 documented as of this encounter
--- OUTSIDE RECORDS SUMMARY | 2023-04-10 18:32 | External Medical Summary | Summary of Care ---
Author Name Unknown Organization [facility] Address [address] [facility] [address] Phone [phone] Care Team Providers Care Spanish Tutor Name Role Phone Mikki August Primary Care Provider Reason for Visit * Reason Comments Follow Up * Precert (Within 10 days (routine)) - Authorized Specialty Diagnoses / Procedures Referred By Heidy mcdonough Referred To Contact Urology Diagnoses Malignant neoplasm of prostate (HCC) Procedures UT LEUPROLIDE ACETATE SUSPNSION Erik Benitez MD [address] [place] [address] Erik Benitez MD [address] [place] [address] Referral ID Status Reason Start Date Expiration Date V isits Requested Visits Authorized [id number] Authorized Precert 11/20/2021 05/18/2099 99 99 Encounter Details Date Type Department Care Team Description 12/25/2022 Office Visit Urology, [facility] [address] [facility] [place] [address] Erik Benitez MD [address] [place] [address] Prostate cancer (HCC)*; Prostate cancer metastatic to multiple sites (HCC); Bone lesion; Slowing of urinary stream Allergies Active Allergy Reactions Severity Noted Date Comments Erythromycin Other (Please comment) 11/14/1997 Swelling and redness of arms after Erythromycin IV for pneumonia Hydrochlorothiazide Other (Please comment) 06/17/2017 Gout flare Indomethacin Other (Please comment) 11/17/2017 [place] out of body when taking. Influenza Virus [...] Benitez MD - 12/25/2022 3:06 PM EDT [id number] PCP: MIKKI AUGUST [address] [place] [address] [place] [address] [phone] Mikhail Roy is a 67 year old [...] comment) Gout flare Indomethacin Other (Please comment) [place] out of body when taking. 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)* 01/08/2023 Laboratory Laboratory [facility], Lab Scenery [address] [place] [address] 01/08/2023 Hem/Onc Treatment Hematology Oncology [place], Chair 11 Hem Onc Scenery [address] [place] [address] 02/05/2023 Pharmacy Pharmacy [facility] Hem/Onc [address] [place] [address] 06/09/2023 Office Visit Family Medicine Lakisha Mclain CRNP [address] [place] [address] 07/02/2023 Office Visit Urology Erik Benitez MD [address] [place] [id number] 12/11/2023 Office Visit Family Medicine Mikki August DO [address] [place] [address] Health Maintenance Due Date Last Done Comments [...] Left documented in this encounter Care Teams Spanish Tutor Relationship Specialty Start Date End Date Mikki August, [address] [place] [address] PCP - General Family Medicine 11/21/20 documented as of this encounter
--- OUTSIDE RECORDS SUMMARY | 2023-04-10 18:32 | External Medical Summary ---
Author Name Unknown Address Unknown Organization [id number]:[facility] [address] [place] [address] Laboratory Report Ordering Provider Test Date Status AB TEJEDA 12/23/2022 09:36:25 Final Observation Date Value Abnormality Reference (Units ) Status PSA 12/23/2022 09:36:25 0.06 <4.10 (ng/ mL) Final Performing Location [facility] - [address] [place] [address]
--- OUTSIDE RECORDS SUMMARY | 2023-04-10 18:32 | External Medical Summary ---
Author Name Unknown Address Unknown Organization [id number]:[facility]ATORY [facility] - [address] [place] [address] Laboratory Report Ordering Provider Test Date Status AB TEJEDA 12/23/2022 09:36:25 Final Observation Date Value Abnormality Reference (Units ) Status Testosterone [Mass/volume] in Serum or Plasma 12/23/2022 09:36:25 <2.5 Below low normal 193.0-740.0 (ng/dL) Final Performing Location LAB[facility]ORY [facility] - [address] [place] [address]
--- OUTSIDE RECORDS SUMMARY | 2023-04-10 18:32 | External Medical Summary ---
Author Name Unknown Address Unknown Organization [id number]:[facility] - [address] [place] [address] Laboratory Report Ordering Provider Test Date Status AB TEJEDA 01/08/2023 09:47:03 Final Observation Date Value Abnormality Reference (Units ) Status BUN 01/08/2023 09:47:03 21 Above high normal 6-20 (mg/dL) Final Creatinine 01/08/2023 09:47:03 0.9 0.6-1.2 (mg/dL) Final Glomerular filtration rate/1.73 sq M.predicted [Volume Rate/Area] in Serum, Plasma or Blood by Creatinine-based formula (CKD-EPI) 01/08/2023 09:47:03 >90 >=60 (mL/min) Final eGFR is calculated based on the CKD-EPI 2020 equation SODIUM 01/08/2023 09:47:03 136 135-146 (m mol/L) Final Potassium 01/08/2023 09:47:03 4.9 3.5-5.1 (m mol/L) Final Cl 01/08/2023 09:47:03 97 Below low normal 98- 107 (mmol/L) Final CO2 01/08/2023 09:47:03 28 22-32 (mmo l/L) Final Anion gap 01/08/2023 09:47:03 11 7-15 (mmol /L) Final Glucose 01/08/2023 09:47:03 292 Above high normal 70 -120 (mg/dL) Final Albumin 01/08/2023 09:47:03 4.4 3.8-5.0 (g /dL) Final AST (Aspartate aminotransferase) 01/08/2023 09:47:03 27 10-50 (U/L) Fin al Alk Phos 01/08/2023 09:47:03 57 35-130 (U/ L) Final Bilirubin, Total 01/08/2023 09:47:03 0.3 <=1 .2 (mg/dL) Final Calcium 01/08/2023 09:47:03 10.5 Above high normal 8. 4-10.2 (mg/dL) Final Protein 01/08/2023 09:47:03 6.9 6.0-8.3 (g /dL) Final ALT (Alanine aminotransferase) 01/08/2023 09:47:03 34 10-50 (U/L) Brendon vargas Performing Location [facility] [place] [address]
--- OUTSIDE RECORDS SUMMARY | 2023-04-10 18:32 | External Medical Summary | Summary of Care ---
Author Name Unknown Organization [facility] Address [address] [place] [address] Phone [phone] Care Team Providers Care Oven Drier Tender Name Role Phone Isak August Primary Care Provider Encounter Details Date Type Department Care Team Description 01/05/2023 Orders Only Hematology/Oncology, [address] [address] Cecy Skinner MD [address] [place] [address] Allergies Active Allergy Reactions Severity Noted Date Comments Erythromycin Other (Please comment) 11/14/1997 Swelling and redness of arms after Erythromycin IV for pneumonia Hydrochlorothiazide Other (Please comment) 06/17/2017 Gout flare Indomethacin Other (Please comment) 11/17/2017 [place] out of body when taking. Influenza Virus Vacc 01/29/2011 Had flu like reaction after taking it. 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 DEVIATED NASAL SEPTUM 07/02/2005 Dyspnea and respiratory abnormality 11/2005 Overview: ICD-10 update of inactive term HTN, goal below 140/90 09/08/2000 documented as of this encounter (statuses as of 01/05/2023) Resolved Problems Problem Noted Date Resolved Date [...] as of this encounter (statuses as of 01/05/2023) Immunizations Name Administration Dates Next Due TDAP [...] Specialty Care Team Description 01/08/2023 Laboratory Laboratory [facility] [address] [place] [address] 01/08/2023 Office Visit Hematology Oncology Cecy Skinner MD [address] [place] [address] 01/08/2023 Hem/Onc Treatment Hematology Oncology [place], Chair 4 Hem Onc Scenery [address] [place] [address] 02/05/2023 Pharmacy Pharmacy [facility], [facility] Hem/Onc [address] [place] [address] 06/09/2023 Office Visit Family Medicine Lakisha Mclain CRNP [address] [place] [address] 07/02/2023 Office Visit Urology Erik Benitze MD [address] [place] [address] 12/11/2023 Office Visit Family Medicine Isak August DO [address] [place] [address] Health Maintenance Due Date Last Done Comments [...] filedocumented as of this encounter Care Teams Oven Drier Tender Relationship Specialty Start Date End Date Isak August DO [address] [place] [address] PCP - General Family Medicine 11/21/20 documented as of this encounter
--- OUTSIDE RECORDS SUMMARY | 2023-04-10 18:33 | External Medical Summary | Summary of Care ---
Author Name Unknown Organization [facility] Address [address] [facility] [place] [address] Phone [phone] Care Team Providers Care Foundry Melt Supervisor Name Role Phone Isak August DO Primary Care Provider Reason for Visit * Reason Onset Date Comments Health Maintenance 11/15/2022 Encounter Details Date Type Department Care Team Description 11/15/2022 Telephone Family Practice [facility] [address] [place] [address] Isak August DO [address] [place] [address] Health Maintenance Allergies Active Allergy Reactions Severity Noted Date Comments Erythromycin Other (Please comment) 11/14/1997 Swelling and redness of arms after Erythromycin IV for pneumonia Hydrochlorothiazide Other (Please comment) 06/17/2017 Gout flare Indomethacin Other (Please comment) 11/17/2017 [place] out of body when taking. Influenza Virus Vacc 01/29/2011 Had flu like reaction after taking it. 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 90 Capsule 3 10/30/2022 Active documented as of this encounter (statuses as of 11/15/2022) Active Problems Problem Noted Date Metastatic castration-sensitive [...] as of this encounter (statuses as of 11/15/2022) Resolved Problems Problem Noted Date Resolved Date [...] as of this encounter (statuses as of 11/15/2022) Immunizations Name Administration Dates Next Due TDAP [...] encounter Miscellaneous Notes * Telephone Encounter - Esperanza Ruiz LPN - 11/15/2022 9:39 AM EDT Care Gaps Comprehensive Care Outreach Last Office/Telemedicine Visit: 05/29/2022 (in office), Visit date not found (telemedicine) Next Office Visit: 12/05/2022 Hemoglobin AIC Results: Lab Results Component Value Date/Time HEMOGLOBIN A1C - [facility] 7.8 (H) 05/29/2022 01:11 PM HEMOGLOBIN A1C - [facility] 7.2 (H) 10/23/2021 03:02 PM HEMOGLOBIN A1C - [facility] 6.5 (H) 11/21/2020 08:25 AM HEMOGLOBIN A1C - [facility] 6.5 (H) 04/12/2019 09:02 AM HEMOGLOBIN A1C - [facility] 6.9 (H) 12/12/2018 10:01 AM HEMOGLOBIN A1C - [facility] 5.9 05/05/2014 08:24 AM Reviewed Health Maintenance below: Health Maintenance Topic Date Due COVID-19 Vaccine (1) Never done Pneumococcal Vaccine: 65+ Years (1 - PCV) Never done Zoster Vaccines (1 of 2) Never done Depression Screening, Annual for Pts 12 and Over 02/03/2021 DIABETES-FOOT EXAM 11/22/2022 HbA1c 11/26/2022 Foot labs Care Gap Outreach Action Taken: Spoke to patient documented in this encounter Plan of Treatment Upcoming Encounters Date Type Specialty Care Team Description 12/05/2022 Office Visit Family Medicine Isak August DO [address] [place] [address] 12/11/2022 Laboratory Laboratory [facility] Lab Scenery [address] [place] [address] 12/11/2022 Hem/Onc Treatment Hematology Oncology [place], Chair 10 Hem Onc Scenery [address] [place] [address] 12/13/2022 Imaging Radiology 12/13/2022 Imaging Radiology 12/23/2022 Office Visit Hematology Oncology Cecy Skinner MD [address] [place] [address] 12/25/2022 Office Visit Urology Erik Benitez MD [address] [place] [address] 12/26/2022 Pharmacy Pharmacy [facility] [place] [facility] Hem/Onc [address] [facility] [place] [address] Scheduled Orders Name Type Priority Associated Diagnoses Orde r Schedule HEMOGLOBIN A1C Lab Routine Diabetes mellitus without complication (HCC) Expected: 11/30/2022, Expires: 11/16/2023 Health Maintenance Due Date Last Done Comments COVID-19 Vaccine (#1) 02/25/1956 Pneumococcal Vaccine: 65+ Years (1 - PCV) 08/27/1963 Zoster Vaccines (1 of 2) 1976 Cologuard 2002 Colonoscopy 2002 Fecal Occult Blood Test 2002 Sigmoidoscopy 2002 Depression Screening, Annual for Pts 12 and Over 02/03/2021 02/04/2020 DIABETES-FOOT EXAM 11/22/2022 11/22/2021, 04/12/2019 HbA1c 11/26/2022 05/29/2022, 06/0 11/2021, 11/21/2020, Additional history exists Albumin/Creatinine Ratio 05/29/2023 05/29/2022 DIABETES-EYE EXAM 08/01/2023 07/31/2022, , 05/04/2019 GFR 11/14/2023 11/13/2022, 09/18, 09/18/2022, Additional history exists Lipid Panel 08/22/2027 08/21/2022, [...] as of this encounter Visit Diagnoses Diagnosis Diabetes mellitus screening- Primary Screening for diabetes mellitus Diabetes mellitus without complication (HCC) Type II or unspecified type diabetes mellitus without mention of complication, not stated as uncontrolled documented in this encounter Care Teams Foundry Melt Supervisor Relationship Specialty Start Date End Date Isak August DO [address] [place] [address] PCP - General Family Medicine 11/21/20 documented as of this encounter
--- OUTSIDE RECORDS SUMMARY | 2023-04-10 18:33 | External Medical Summary ---
Author Name Unknown Address Unknown Organization K01:[facility]ATORY [facility] [place] - [address] [place] [address] Laboratory Report Ordering Provider Test Date Status SLMI KAYE 12/11/2022 12:40:31 Final Observation Date Value Abnormality Reference (Units ) Status HbA1C 12/11/2022 12:40:31 10.1 Above high normal 4. 0-5.6 (%) Final The use of HbA1c to monitor glycemic status is based on normal hemoglobin and HbA composition. This test should not be used in patients with abnormal hemoglobin that affects the half life of the red blood cell or the in vivo glycation rates. Glucose, estimated average 12/11/2022 12:40:31 243 Above high normal <126 (mg/dL) Brendon vargas Performing Location [facility] [place] - [address] [facility] [address]
--- OUTSIDE RECORDS SUMMARY | 2023-04-10 18:33 | External Medical Summary ---
Author Name Unknown Address Unknown Organization K09:[facility] [place] [address] Laboratory Report Ordering Provider Test Date Status AB TEJEDA 12/11/2022 12:40:31 Final Observation Date Value Abnormality Reference (Units ) Status WBC, Total 12/11/2022 12:40:31 7.86 4.00-10.8 0 (K/uL) Final RBC 12/11/2022 12:40:31 4.10 4.50-5.25 (M/uL) Final Hemoglobin 12/11/2022 12:40:31 12.5 Below low normal 14 .0-16.8 (g/dL) Final HCT 12/11/2022 12:40:31 36.4 Below low normal 40. 0-48.4 (%) Final MCV 12/11/2022 12:40:31 88.8 82.0-99.5 (fL) Final MCH 12/11/2022 12:40:31 30.5 27.0-34.0 (pg) Final MCHC 12/11/2022 12:40:31 34.3 32.0-36.0 (g/dL) Final RDW 12/11/2022 12:40:31 12.5 11.5-15.5 (%) Final Platelets 12/11/2022 12:40:31 195 140-400 (K /uL) Final MPV 12/11/2022 12:40:31 11.4 6.6-11.1 ( fL) Final Performing Location [facility] [place] [address]
--- OUTSIDE RECORDS SUMMARY | 2023-04-10 18:33 | External Medical Summary ---
Author Name Unknown Address Unknown Organization K01:[facility]ORY [facility] - [address] [place] [address] Laboratory Report Ordering Provider Test Date Status AB TEJEDA 10/16/2022 12:35:38 Final Observation Date Value Abnormality Reference (Units ) Status PSA 10/16/2022 12:35:38 0.09 <4.10 (ng/ mL) Final Performing Location [facility] - [address] [place] [address]
--- OUTSIDE RECORDS SUMMARY | 2023-04-10 18:33 | External Medical Summary ---
Author Name Unknown Address Unknown Organization K09:[facility]ORY [place] [address] - [address] [place] [address] Laboratory Report Ordering Provider Test Date Status AB TEJEDA 12/11/2022 12:40:31 Final Observation Date Value Abnormality Reference (Units ) Status BUN 12/11/2022 12:40:31 24 Above high normal 6-20 (mg/dL) Final Creatinine 12/11/2022 12:40:31 1.2 0.6-1.2 (mg/dL) Final Glomerular filtration rate/1.73 sq M.predicted [Volume Rate/Area] in Serum, Plasma or Blood by Creatinine-based formula (CKD-EPI) 12/11/2022 12:40:31 66 >=60 (mL/min) Final eGFR is calculated based on the CKD-EPI 2020 equation SODIUM 12/11/2022 12:40:31 135 135-146 (m mol/L) Final Potassium 12/11/2022 12:40:31 4.5 3.5-5.1 (m mol/L) Final Cl 12/11/2022 12:40:31 99 98-107 (mm ol/L) Final CO2 12/11/2022 12:40:31 24 22-32 (mmo l/L) Final Anion gap 12/11/2022 12:40:31 12 7-15 (mmol /L) Final Glucose 12/11/2022 12:40:31 228 Above high normal 70 -120 (mg/dL) Final Albumin 12/11/2022 12:40:31 4.6 3.8-5.0 (g /dL) Final AST (Aspartate aminotransferase) 12/11/2022 12:40:31 40 10-50 (U/L) Fin al Result may be falsely elevat ed due to hemolysis. Alk Phos 12/11/2022 12:40:31 57 35-130 (U/ L) Final Bilirubin, Total 12/11/2022 12:40:31 0.2 <=1 .2 (mg/dL) Final Calcium 12/11/2022 12:40:31 10.3 Above high normal 8. 4-10.2 (mg/dL) Final Protein 12/11/2022 12:40:31 7.0 6.0-8.3 (g /dL) Final ALT (Alanine aminotransferase) 12/11/2022 12:40:31 44 10-50 (U/L) Brendon vargas Performing Location [facility] [place] [address] [place] [address]
--- OUTSIDE RECORDS SUMMARY | 2023-04-10 18:33 | External Medical Summary | Summary of Care ---
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 Influenza Virus Vacc 01/29/2011 Had flu like reaction after taking it. documented as of this encounter (statuses as of 11/13/2022) Medications Medication Sig Dispensed Refills Start Date [...] as of this encounter (statuses as of 11/13/2022) Active Problems Problem Noted Date Metastatic castration-sensitive [...] as of this encounter (statuses as of 11/13/2022) Resolved Problems Problem Noted Date Resolved Date [...] as of this encounter (statuses as of 11/13/2022) Immunizations Name Administration Dates Next Due TDAP [...] Encounters Date Type Specialty Care Team Description 11/13/2022 Office Visit Hematology Oncology [place], Cecy Peoples MD [address] [facility] [place] [address] Arrived 11/13/2022 Hem/Onc Treatment Hematology Oncology [place], Chair 11 Hem Onc Scenery [address] [facility] [address] Arrived 12/05/2022 Office Visit Family Medicine Isak August, [address] [facility] [place] [address] 12/11/2022 Laboratory Laboratory [facility], Lab Scenery [address] [place] [address] 12/11/2022 Hem/Onc Treatment Hematology Oncology [place], Chair 10 Hem Onc Scenery [address] [place] [address] 12/25/2022 Office Visit Urology Erik Benitez MD [address] [facility] [address] [place] [phone] 12/26/2022 Pharmacy [facility] [place] Hem/Onc [address] [place] [address] Pending Results Name Type Priority Associated Diagnoses Date /Time COMPREHENSIVE METABOLIC PANEL Lab STAT 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) 11/13/2022 2:29 PM EDT Health Maintenance Due Date Last [...] DIABETES-EYE EXAM 08/01/2023 07/31/2022, , 05/04/2019 GFR 10/17/2023 10/16/2022, 0507/2022, 08/21/2022, Additional history exists Lipid Panel 08/22/2027 08/21/2022, [...] Date/Time Associated Diagnosis Comments DIFFERENTIAL, AUTOMATED STAT 11/13/2022 2:29 PM EDT 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) CBC WITH WBC DIFFERENTIAL STAT 11/13/2022 2:29 PM EDT 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) CBC STAT 11/13/2022 2:29 PM EDT 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) documented in this encounter Results * DIFFERENTIAL, AUTOMATED (11/13/2022 2:29 PM EDT) WBC 7.32 4.00 - 10.80 K/uL 11/13/2022 2:40 PM EDT [facility]02 Neutrophils % 57.1 40.0 - 75.0 % 11/13/2022 2:40 PM EDT [facility] 56[facility]02 Lymphocytes % 30.7 18.0 - 42.0 % 11/13/2022 2:40 PM EDT [facility] 56[facility]02 Monocytes % 8.1 1.0 - 11.0 % 11/13/2022 2:40 PM EDT [facility] 56[facility]02 Eosinophils % 3.6 0.0 - 6.0 % 11/13/2022 2:40 PM EDT [facility] 56 Basophils % 0.5 0.0 - 2.0 % 11/13/2022 2:40 PM EDT [facility] Absolute Neutrophils 4.18 1.80 - 7.70 K/uL 11/13/2022 2:40 PM EDT [facility] Absolute Lymphocytes 2.25 1.00 - 4.80 K/ul 11/13/2022 2:40 PM EDT [facility] Absolute Monocytes 0.59 0.00 - 1.10 K/uL 11/13/2022 2:40 PM EDT [facility] Absolute Eosinophils 0.26 0.00 - 0.70 K/uL 11/13/2022 2:40 PM EDT [facility] Absolute Basophils 0.04 0.00 - 0.20 K/uL 11/13/2022 2:40 PM EDT [facility] Blood Venous blood specimen / Unknown Venipuncture / Unknown 11/13/2022 2:29 PM EDT 11/13/2022 2:29 PM EDT Cecy Skinner MD LAB BLOOD ORDERA BLES [facility] [address] [place] [address] * (ABNORMAL) CBC (11/13/2022 2:29 PM EDT) [facility] Signature WBC 7.32 4.00 - 10.80 K/uL 11/13/2022 2:40 PM EDT [facility] RBC 4.11 4.50 - 5.25 M/uL 11/13/2022 2:40 PM EDT [facility] HGB 13.0(L) 14.0 - 16.8 g/dL 11/13/2022 2:40 PM EDT [facility] HCT 37.2(L) 40.0 - 48.4 % 11/13/2022 2:40 PM EDT [facility] MCV 90.5 82.0 - 99.5 fL 11/13/2022 2:40 PM EDT [facility] MCH 31.6 27.0 - 34.0 pg 11/13/2022 2:40 PM EDT [facility] MCHC 34.9 32.0 - 36.0 g/dL 11/13/2022 2:40 PM EDT [facility] RDW 12.4 11.5 - 15.5 % 11/13/2022 2:40 PM EDT [facility] PLT 182 140 - 400 K/uL 11/13/2022 2:40 PM EDT [facility] MPV 11.5 6.6 - 11.1 fL 11/13/2022 2:40 PM EDT [facility] Blood Venous blood specimen / Unknown Venipuncture / Unknown 11/13/2022 2:29 PM EDT 11/13/2022 2:29 PM EDT Cecy Skinner MD LAB BLOOD ORDERA BLES [facility] [address] [place] [address] documented in this encounter Visit Diagnoses Diagnosis 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
--- OUTSIDE RECORDS SUMMARY | 2023-04-10 18:33 | External Medical Summary ---
Author Name Unknown Address Unknown Organization K09:[facility] [place] [place] [address] Laboratory Report Ordering Provider Test Date Status AB TEJEDA 10/16/2022 12:35:38 Final Observation Date Value Abnormality Reference (Units ) Status SYNC LEUKOCYTES IN BLOOD BY AUTOMATED COUNT 10/16/2022 12:35:38 6.51 4.00-10.80 (K/uL) Final Segs 10/16/2022 12:35:38 53.4 40.0-75.0 (%) Final Lymphs % 10/16/2022 12:35:38 33.5 18.0-42.0 (%) Final Monos 10/16/2022 12:35:38 8.9 1.0-11.0 (%) Final Eosinophils 10/16/2022 12:35:38 3.7 0.0-6.0 (%) Final Basos 10/16/2022 12:35:38 0.5 0.0-2.0 (%) Final Absolute Segs 10/16/2022 12:35:38 3.48 1.80-7.70 (K/uL) Final Lymphs, absolute 10/16/2022 12:35:38 2.18 1.00-4.80 (K/ul) Final Monos, Abs 10/16/2022 12:35:38 0.58 0.00-1.10 (K/uL) Final Eos, Abs 10/16/2022 12:35:38 0.24 0.00-0.70 (K/uL) Final Basos, Abs 10/16/2022 12:35:38 0.03 0.00-0.20 (K/uL) Final Performing Location [facility] [address]
--- OUTSIDE RECORDS SUMMARY | 2023-04-10 18:33 | External Medical Summary | Summary of Care ---
Author Name Unknown Organization [facility] Address [address] [facility] [address] Phone [phone] Care Team Providers Care Master Welder Name Role Phone Isak August Primary Care Provider Reason for Visit * Reason Onset Date Comments Precert Not Needed 10/31/2022 [place] - Erleada 60mg - 11/01/22 Encounter Details Date Type Department Care Team Description 10/31/2022 Telephone Hematology/Oncology Treatment, [place] [address] [place] [address] Cecy Skinner MD [address] [place] [address] Precert Not Needed ([place] - Erleada 60mg - 06... Allergies Active Allergy Reactions Severity Noted Date Comments Erythromycin Other (Please comment) 11/14/1997 Swelling and redness of arms after Erythromycin IV for pneumonia Hydrochlorothiazide Other (Please comment) 06/17/2017 Gout flare Indomethacin Other (Please comment) 11/17/2017 [place] out of body when taking. Influenza Virus Vacc 01/29/2011 Had flu like reaction after taking it. documented as of this encounter (statuses as of 11/11/2022) Medications Medication Sig Dispensed Refills Start Date [...] as of this encounter (statuses as of 11/11/2022) Active Problems Problem Noted Date Metastatic castration-sensitive [...] as of this encounter (statuses as of 11/11/2022) Resolved Problems Problem Noted Date Resolved Date [...] as of this encounter (statuses as of 11/11/2022) Immunizations Name Administration Dates Next Due Seasonal [...] Miscellaneous Notes * Telephone Encounter - Carmen Lose, STATISTICAL TYPIST - 11/11/2022 12:07 PM EDT Received another PA form from [facility]. Sent to be signed into [employer]. * Telephone Encounter - VALERIO Fuentes - 11/01/2022 7:33 AM EDT Images from the original note were not included. Drug does not require PA. * Telephone Encounter - Kadi Reese RN - 10/31/2022 3:50 PM EDT Per referral for erleada, states that prior auth is not needed. Received fax from [facility] that erleada requires prior authorization under the patients [employer] prescription drug plan. Precert: please obtain auth. Thanks! ICD-10: c61.0, z19.1 Start date: PEDRO PABLO- current medication, patient requesting refill from pharmacy Drugs: Disp Refills Start End Erleada 60 MG Oral Tablet (Apalutamide) 120 Tablet 5 07/22/2022 Sig: TAKE 4 TABLETS (240 MG) DAILY. TAKE WITH OR WITHOUT FOOD Physician: DARIAN Eric documented in this encounter Plan of Treatment Upcoming Encounters Date Type Specialty Care Team Description 11/13/2022 Laboratory [facility] [place], [address] [place] [address] 11/13/2022 Office Visit Hematology Oncology Cecy Skinner MD [address] [place] [address] 11/13/2022 Hem/Onc Treatment Hematology Oncology [place], Chair [address] Hem Onc Scenery [address] [place] [address] 12/05/2022 Office Visit Family Medicine Isak August, DO [address] [facility] [place] [address] 12/11/2022 Laboratory Laboratory [place], Lab Scenery [address] [place] [address] 12/11/2022 Hem/Onc Treatment Hematology Oncology [place], Chair 10 Hem Onc Scenery [address] [place] [address] 12/25/2022 Office Visit Urology Erik Benitez MD [address] [place] [address] 12/26/2022 Pharm[place] [facility] [place] Hem/Onc [address] [place] [address] Health Maintenance Due Date Last Done Comments [...] 08/01/2023 07/31/2022, , 05/04/2019 GFR 10/17/2023 10/16/2022, 05/0 07/2022, 08/21/2022, Additional history exists Lipid Panel 08/22/2027 [...] filedocumented as of this encounter Care Teams Master Welder Relationship Specialty Start Date End Date Isak August DO [address] [place] [address] PCP - General Family Medicine 11/21/20 documented as of this encounter
--- OUTSIDE RECORDS SUMMARY | 2023-04-10 18:33 | External Medical Summary | Summary of Care ---
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) Procedures NM BONE SCAN WHOLEBODY Cecy Skinner MD [address] [place] [address] Referral ID Status Reason Start Date Expiration Date V isits Requested Visits Authorized [id number] Authorized 12/25/2022 999 999 Encounter Details Date Type Department Care Team Description 11/13/2022 Office Visit Hematology/Oncology [place] [address] [place] [address] Cecy Skinner MD [address] [place] [address] 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 Influenza Virus [...] Sign Reading Time Taken Comments Blood Pressure 132/84 11/13/2022 2:58 PM EDT Pulse 103 11/13/2022 2:58 PM EDT Temperature 36.9 C (98.5 F) 11/13/2022 2:58 PM ED T Respiratory Rate 16 11/13/2022 2:58 PM EDT Oxygen Saturation 93% 11/13/2022 2:58 PM EDT Inhaled Oxygen Concentration - - Weight 124.4 kg (274 lb 3.2 oz) 11/13/2022 2:58 PM EDT Height - - Body Mass Index 37.98 11/22/2021 9:23 AM EDT documented in this encounter Progress Notes * Cecy Skinner MD - 11/13/2022 3:02 PM EDT Outpatient Consult Note Data Source: Patient, Epic record. Data Source: Patient, Epic record. 11/13/2022 3:02 PM Mikhail Rosario [place] [id number] 67 year old Patient Encounter: HEMATOLOGY/ONCOLOGY [facility] Cancer Diagnosis: Prostate cancer withelevated PSA. Patient has metastatic castration sensitive disease. Current Treatment: Eligard plus apalutamide andZometa. Apalutamide was started on 02/25/2022 Previous Treatment: Casodexand Eligard Oncologic History : 66-year-old male recently presented with complaint of increasing [...] the abdomen pelvis done on 10/23/2021 which revealedmildly prominent prostate, scattered sclerotic lesions, which may represent bone metastases. PSA level was 195.20 Patient was seen by Dr. Benitez from Urology.Dr. Benitez also started him on Casodex. PET scan done on 10/31/2021 which revealedsclerotic lesion in the right ilium demonstrates low-grade metabolic activity with an SUV max of 4.7. The sclerotic lesions in the T10 and L1 vertebral bodies demonstrates background metabolic activity with SUV max of 3.5. There is a sclerotic lesion in the posterior right 6th rib with background metabolic activity. Biopsy from the prostate is consistent for prostatic adenocarcinoma Amsterdam score3+4=7 A Left base 1 1.6 Prostatic adenocarcinoma [...] again revealed multiple foci of abnormal radiotracer uptakeconsistent withosteoblastic metastatic disease. Interval History: He is tolerating treatment very well without any significant side effects toxicity. Clinically he is feeling better without any new symptoms complain. Patient denies any headache, dizziness, blurred vision, chest pain, shortness breath palpitation abdominal pain or distention, bleeding, bruising, nausea, vomiting, fever, night sweats, weight loss, hematuria, hematochezia. LABS/IMAGING: Results for orders placed or performed in visit on 11/13/22 COMPREHENSIVE METABOLIC PANEL Result Value Ref Range BUN 25 (H) 6 - 20 mg/dL Creatinine 1.1 0.6 - 1.2 mg/dL Estimated Glomerular Filtration Rate 75 >=60 mL/min Sodium 132 (L) 135 - 146 mmol/L Potassium 4.7 3.5 - 5.1 mmol/L Chloride 97 (L) 98 - 107 mmol/L CO2 22 22 - 32 mmol/L Anion Gap 13 7 - 15 mmol/L Glucose 292 (H) 70 - 120 mg/dL Albumin 4.1 3.8 - 5.0 g/dL AST 33 10 - 50 U/L Alkaline Phosphatase 58 35 - 130 U/L Bilirubin, Total 0.2 <=1.2 mg/dL Calcium 9.7 8.4 - 10.2 mg/dL Protein 6.5 6.0 - 8.3 g/dL ALT 43 10 - 50 U/L CBC Result Value Ref Range WBC 7.32 4.00 - 10.80 K/uL RBC 4.11 4.50 - 5.25 M/uL HGB 13.0 (L) 14.0 - 16.8 g/dL HCT 37.2 (L) 40.0 - 48.4 % MCV 90.5 82.0 - 99.5 fL MCH 31.6 27.0 - 34.0 pg MCHC 34.9 32.0 - 36.0 g/dL RDW 12.4 11.5 - 15.5 % PLT 182 140 - 400 K/uL MPV 11.5 6.6 - 11.1 fL DIFFERENTIAL, AUTOMATED Result Value Ref Range WBC 7.32 4.00 - 10.80 K/uL Neutrophils % 57.1 40.0 - 75.0 % Lymphocytes % 30.7 18.0 - 42.0 % Monocytes % 8.1 1.0 - 11.0 % Eosinophils % 3.6 0.0 - 6.0 % Basophils % 0.5 0.0 - 2.0 % Absolute Neutrophils 4.18 1.80 - 7.70 K/uL Absolute Lymphocytes 2.25 1.00 - 4.80 K/ul Absolute Monocytes 0.59 0.00 - 1.10 K/uL Absolute Eosinophils 0.26 0.00 - 0.70 K/uL Absolute Basophils 0.04 0.00 - 0.20 K/uL Last PSA was 0.09 on 10/16/2022 REVIEW OF SYSTEMS: General: No Fever, chills, [...] bleeding Genitourinary: Denies Hematuria or dysuria Musculoskeletal: Stable bone pain Skin: No skin rash or [...] Current Outpatient Medications Medication Sig Dispense Refill Montelukast Sodium 10 MG Oral Tablet (Singulair) TAKE 1 TABLET DAILY 90 Tablet 3 Zoledronic Acid 4 MG/100ML Intravenous Solution Administer 4 mg intravenously once. Naproxen 500 MG Oral Tablet (Naprosyn) Take 1 Tablet by mouth 2 times a day as needed (pain). 40 Tablet 1 Erleada 60 MG Oral Tablet (Apalutamide) TAKE 4 TABLETS (240 MG) DAILY. TAKE WITH OR WITHOUT FOOD 120 Tablet 5 Rosuvastatin Calcium 40 MG Oral Tablet (Crestor) [...] mouth in the morning. 90 Capsule 3 No current facility-administered medications for this visit. Social History Tobacco Use Smoking status: Former Years: 4.00 Types: Cigarettes Quit date: 05/19/1979 Years since quittin.5 Smokeless tobacco: Former Types: Chew Quit date: [...] comment) Gout flare Indomethacin Other (Please comment) [place] out of body when taking. Influenza Virus Vacc Had flu like reaction after taking it. PHYSICAL EXAMINATION: General Appearance: Healthy appearing patient in no acute distress BP 132/84 (BP Site: Left Arm, BP Position: Sitting, BP Cuff Size: Large) | Pulse 103 | Temp 36.9 C (98.5 F) (Oral) | Resp 16 | Wt 124.4 kg (274 lb 3.2 oz) | SpO2 93% | BMI 37.98 kg/m | BSA 2.5 m Vitals reviewed. [...] of gout, no jointor bony deformity ASSESSMENT: 66-year-old male otherwise healthy presenting with complaint of increasing back pain. He had a CTscan done shows prominent prostate with bone lesion. PSA was high.Biopsy from the prostate isconsistent with the adenocarcinoma Timbo score4+ 3 =7. PET scan revealed sclerotic lesion nonspecific low- grade to background metabolic activity. Bone scan revealed bone metastasis. Patient was seen by Dr. Benitez and he was started on Lupron and received 1st injection on 11/28/2021. Overall clinically he is feeling better with improvement in the back pain and significant decrease in the PSA level. Currently he is receiving combination of apalutamide plus Lupron and Zometa with overall good tolerance. His blood counts are in stable range with decreasing level of PSA level. Discussed with the patientand in detail about the diagnosis reviewed all the available blood test result with him. At this point will continue current treatment. PLAN: Continue current treatment including combination of apalutamide plus Lupron and Zometa. He will return to clinic for follow-up in 6 weeks with CBC, CMP, PSA and bone scan The patient voiced understanding of all of [...] Nursing Notes * Radhika August CMA - 11/13/2022 2:58 PM EDT Patient identifed by name and birthdate [...] it for you? ALREADY ACTIVE Filed Vitals: 11/13/22 1458 BP: 132/84 Pulse: 103 Resp: 16 Temp: 36.9 C (98.5 F) TempSrc: Oral SpO2: 93% Weight: 124.4 kg (274 lb 3.2 oz) Patient was instructed to not get [...] Description 12/05/2022 Office Visit Family Medicine Isak August, DO [address] [facility] [place] [address] 12/11/2022 Laboratory Laboratory [place], Lab Scenery [address] [place] [address] 12/11/2022 Hem/Onc Treatment Hematology Oncology [place], Chair 10 Hem Onc Scenery [address] [place] [address] 12/25/2022 Office Visit Urology Erik Benitez MD [address] [place] [address] [place] [address] 12/26/2022 Pharmacy Pharmacy [facility] [place] Hem/Onc [address] [place], [place] [id number] Scheduled Orders Name Type Priority Associated Diagnoses Orde r Schedule NM BONE SCAN WHOLEBODY Medical Imaging Routine 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) Expected: 12/25/2022, Expires: 12/14/2023 CBC WITH WBC DIFFERENTIAL Lab Routine 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) Expected: 12/25/2022, Expires: 05/06/2023 COMPREHENSIVE METABOLIC PANEL Lab Routine 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
--- OUTSIDE RECORDS SUMMARY | 2023-04-10 18:33 | External Medical Summary | Summary of Care ---
Author Name Unknown Organization [facility] Address [address] [facility] [place] [address] Phone [phone] Care Team Providers Care Data Reviewer Name Role Phone Mikki August DO Primary Care Provider Reason for Visit * Reason Onset Date Comments Medication Refill 10/29/2022 Encounter Details Date Type Department Care Team Description 10/29/2022 Refill Family Practice [facility] [address] [place] [address] Mikki August DO [address] [place] [address] Dyslipidemia, goal LDL below 100; HTN, goal below 140/90; Idiopathic chronic gout of foot without tophus, unspecified laterality; Asthma, allergic, unspecified asthma severity, uncomplicated Allergies Active Allergy Reactions Severity Noted Date Comments Erythromycin Other (Please comment) 11/14/1997 Swelling and redness of arms after Erythromycin IV for pneumonia Hydrochlorothiazide Other (Please comment) 06/17/2017 Gout flare Indomethacin Other (Please comment) 11/17/2017 [place] out of body when taking. Influenza Virus Vacc 01/29/2011 Had flu like reaction after taking it. documented as of this encounter (statuses as of 10/29/2022) Medications Medication Sig Dispensed Refills Start Date End Date Status Montelukast Sodium 10 MG Oral Tablet (Singulair)Indicati ons:Mild intermittent extrinsic asthma without complication TAKE 1 TABLET DAILY 90 Tablet 3 2 Active Tamsulosin HCl 0.4 MG Oral Capsule (Flomax) Take by mouth 1 Capsule in the morning. 90 Capsule 3 2 Active Zoledronic Acid 4 MG/100ML Intravenous Solution Administer 4 mg intravenously once. 0 Active Naproxen 500 MG Oral Tablet (Naprosyn)Indicatio ns:Right flank pain Take 1 Tablet by mouth 2 times a day as needed (pain). 40 Tablet 1 3 Active Erleada 60 MG Oral Tablet (Apalutamide)Indica tions:Metastatic castration-sensitiv e adenocarcinoma of prostate (HCC) TAKE 4 TABLETS (240 MG) DAILY. TAKE WITH OR WITHOUT FOOD 120 Tablet 5 3 Active Rosuvastatin Calcium 40 MG Oral [...] for asthma 54 g 1 3 Active Carvedilol 3.125 MG Oral Tablet (Coreg)Indications: HTN, goal below 140/90 Take by mouth 1 Tablet in the morning AND 1 Tablet before bedtime. With food.. 180 Tablet 3 2 10/30/19 23 Discontinu ed(Refill) Allopurinol 300 MG Oral Tablet (Zyloprim)Indicatio ns:Idiopathic chronic gout of foot without tophus, unspecified laterality Take by mouth 1 Tablet in the morning. 90 Tablet 3 2 10/30/19 23 Discontinu ed(Refill) Lisinopril 40 MG Oral Tablet Take 1 Tablet by mouth in the morning. 90 Tablet 3 3 10/30/19 23 Discontinu ed(Refill) Rosuvastatin Calcium 40 MG Oral Tablet (Crestor)Indication s:Dyslipidemia, goal LDL below 100 Take 1 Tablet by mouth in the morning. 90 Tablet 3 3 10/30/19 23 Discontinu ed(Refill) Albuterol Sulfate HFA 108 (90 Base) MCG/ACT Inhalation Aerosol SolutionIndications :Asthma, allergic, unspecified asthma severity, uncomplicated USE 2 INHALATIONS EVERY 4-6 HOURS NEEDED for asthma 54 g 1 3 10/30/19 Discontinu ed(Refill) documented as of this encounter (statuses as of 10/29/2022) Active Problems Problem Noted Date Metastatic castration-sensitive [...] as of this encounter (statuses as of 10/29/2022) Resolved Problems Problem Noted Date Resolved Date [...] as of this encounter (statuses as of 10/29/2022) Immunizations Name Administration Dates Next Due TDAP [...] encounter Miscellaneous Notes * Telephone Encounter - Mikki August DO - 10/29/2022 11:32 AM EDT Signed Prescriptions: Disp Refills Rosuvastatin Calcium 40 MG Oral Tablet (Cr*90 Tab*3 Sig: Take 1 Tablet by mouth in the morning. Authorizing Provider: MIKKI AUGUST Lisinopril 40 MG Oral Tablet 90 Tab*3 Sig: Take 1 Tablet by mouth in the morning. Authorizing Provider: MIKKI AUGUST Carvedilol 3.125 MG Oral Tablet (Coreg) 180 Ta*3 Sig: Take 1 Tablet by mouth in the morning and 1 Tablet before bedtime. With food.. Authorizing Provider: MIKKI AUGUST Allopurinol 300 MG Oral Tablet (Zyloprim) 90 Tab*3 Sig: Take 1 Tablet by mouth in the morning. Authorizing Provider: MIKKI AUGUST Albuterol Sulfate HFA 108 (90 Base) MCG/AC*54 g 1 Sig: USE 2 INHALATIONS EVERY 4-6 HOURS NEEDED for asthm a Authorizing Provider: MIKKI AUGUST * Telephone Encounter - Latrice Morales LPN - 10/29/2022 10:13 AM EDTPending Prescriptions: Disp Refills Rosuvastatin Calcium 40 MG Oral Tablet (Cr*90 Tab*3 Sig: Take 1 Tablet by mouth in the morning. Lisinopril 40 MG Oral Tablet 90 Tab*3 Sig: Take 1 Tablet by mouth in the morning. Carvedilol 3.125 MG Oral Tablet (Coreg) 180 Ta*3 Sig: Take 1 Tablet by mouth in the morning and 1 Tablet before bedtime. With food. . Allopurinol 300 MG Oral Tablet (Zyloprim) 90 Tab*3 Sig: Take 1 Tablet by mouth in the morning. Albuterol Sulfate HFA 108 (90 Base) MCG/AC*54 g 1 Sig: USE 2 INHALATIONS EVERY 4-6 HOURS NEEDED for asthma * Telephone Encounter - VALERIO Villalpando - 10/29/2022 9:29 AM EDT Did you pend patient's preferred pharmacy and medication before forwarding?yes Pharmacy: [facility] [address] [facility] Pending Prescriptions: Disp Refills Rosuvastatin Calcium 40 MG Oral Tablet (C*90 Tab*3 Sig: Take 1 Tablet by mouth in the morning. Lisinopril 40 MG Oral Tablet 90 Tab*3 Sig: Take 1 Tablet by mouth in the morning. Carvedilol 3.125 MG Oral Tablet (Coreg) 180 Ta*3 Sig: Take 1 Tablet by mouth in the morning and 1 Tablet before bedtime. With food.. Allopurinol 300 MG Oral Tablet (Zyloprim) 90 Tab*3 Sig: Take 1 Tablet by mouth in the morning. Albuterol Sulfate HFA 108 (90 Base) MCG/A*54 g 1 Sig: USE 2 INHALATIONS EVERY 4-6 HOURS NEEDED for asthma Last Visit: 05/29/2022 (in office), Visit date not found (telemedicine) Next Visit: 12/05/2022 If no future appointments scheduled, and last appointment is greater than a year ago, please schedule patient for a follow-up appointment Last date the medication was ordered: 06.04.22 1 7 7 3 Is this request for a controlled substance?No Urine Drug Screen:No results found for this or any previous visit. Patient Phone Numbers Labs: Lab Results Component Value Date/Time CREAT 1.2 10/16/2022 12:35 PM CREAT 0.8 04/12/2019 09:02 AM POTASSIUM 4.4 10/16/2022 12:35 PM POTASSIUM 4.7 04/12/2019 09:02 AM TSH 1.46 02/27/2022 02:41 PM TSH 2.37 11/01/2017 09:54 AM LDLCALC UNINTERPRETABLE RESULT 07/04/2018 10:00 AM LDLDIRECT 93 08/21/2022 12:48 PM LDLDIRECT 116 04/12/2019 09:02 AM ALT 37 10/16/2022 12:35 PM ALT 25 04/12/2019 09:02 AM HGBA1C 7.8 (H) 05/29/2022 01:11 PM HGBA1C 6.5 (H) 04/12/2019 09:02 AM documented in this encounter Plan of Treatment Upcoming Encounters Date Type Specialty Care Team Description 11/13/2022 Laboratory Laboratory [facility] [address] [place] [address] 11/13/2022 Office Visit Hematology Oncology Cecy Skinner, MD [address] [place] [address] 11/13/2022 Hem/Onc Treatment Hematology Oncology [place], Chair 11 Hem Onc Scenery [address] [place] [address] 12/05/2022 Office Visit Family Medicine Mikki August, [address] [facility] [place] [address] 12/11/2022 Laboratory Laboratory [facility] Lab Scenery [address] [facility] [place] [address] 12/11/2022 Hem/Onc Treatment Hematology Oncology [place], Chair 10 Hem Onc Scenery [address] [place] [address] 12/25/2022 Office Visit Urology Erik Benitez MD [address] [place] [address] 12/26/2022 Pharmacy Pharmacy [facility] [place] [place], [facility] Hem/Onc [address] [place] [address] Health Maintenance Due Date Last [...] as of this encounter Visit Diagnoses Diagnosis Dyslipidemia, goal LDL below 100 Other and unspecified hyperlipidemia HTN, goal below 140/90 Unspecified essential hypertension Idiopathic chronic gout of foot without tophus, unspecified laterality Asthma, allergic, unspecified asthma severity, uncomplicated documented in this encounter Care Teams Data Reviewer Relationship Specialty Start Date End Date Mikki August DO [address] [place] [address] PCP - General Family Medicine 11/21/20 documented as of this encounter
--- OUTSIDE RECORDS SUMMARY | 2023-04-10 18:33 | External Medical Summary | Summary of Care ---
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) Procedures AL ZOLEDRONIC ACID 1MG Cecy Skinner MD [address] [place] [address] Anc Hem/Onc [facility]en[facility] Masc[place] [address] [place] [phone] Referral ID Status Reason Start Date Expiration Date V isits Requested Visits Authorized [id number] Authorized 01/14/2022 05/18/2099 99 99 Encounter Details Date Type Department Care Team Description 11/13/2022 Hem/Onc Treatment Hematology/Oncology Treatment, [place] [address] [place] [address] Subha, Chair 11 Hem Onc [place] [address] [place] [address] 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 Influenza Virus [...] on file documented as of this encounter Nursing Notes * Brittany Greene LPN - 11/13/2022 4:03 PM EDT 1535: Pt arrived for Zometa infusion. PIV in R metacarpal. Pt tolerated well. Labs WNL. Pt taking all supplements per order. VSS. Pt saw MD-see notes. at side. No complaints at this time. 1600: Pt tolerated Zometa infusion well. PIV removed intact. Pt to return in 4 weeks. Discharged instable condition. documented in this encounter Plan of Treatment Upcoming Encounters Date Type Specialty Care Team Description 12/05/2022 Office Visit Family Medicine Isak August DO [address] [place] [address] 12/11/2022 Laboratory Laboratory [facility], Lab Scenery [address] [facility] [address] 12/11/2022 Hem/Onc Treatment Hematology Oncology [place], Chair 10 Hem Onc Scenery [address] [place] [address] 12/13/2022 Imaging Radiology 12/13/2022 Imaging Radiology 12/23/2022 Office Visit Hematology Oncology Cecy Skinner MD [address] [place] [address] 12/25/2022 Office Visit Urology Erik Benitez MD [address] [place] [address] 12/26/2022 Pharmacy Pharmacy [facility] [place] Hem/Onc [address] [place] [address] Health Maintenance Due Date Last Done Comments [...] ONCE PRN Other, Hypersensitivity Reaction, Starting on Fri11/13/22 at 1507, Until Esme 11/14/22 at 1506, For 24 hours EPINEPHrine 1 MG/ML inj 0.3 mg 0.3 mg, Intramuscular, ONCE PRN Other, Hypersensitivity Reaction or Anaphylaxis, Starting on Fri11/13/22 at 1507, Until Esme 11/14/22 at 1506, For 24 hours hEParin 100 UNIT/ML Lock Flush inj 500 Units 500 Units (5 mL), IV Lock, PRN Other, IV Flush, Starting on Fri11/13/22 at 1507, Until Esme 11/14/22 at 1506, For 24 hours, Do not flush if lock, PICC, or central line not in place; IV infusing or unable to flush. Hydrocortisone Sod Suc (PF) (Solu-Cortef) inj 100 mg 100 mg, IV Push, ONCE PRN Other, Hypersensitivity Reaction, Starting on Fri11/13/22 at 1507, Until Esme 11/14/22 at 1506, For 24 hours NSS infusion 500 mL, Intravenous, at 50 mL/hr, CONTINUOUS, Starting on Fri11/13/22 at 1615, Until Esme 11/14/22 at 0214 Start Infusion 11/13/2022 3:39 PM EDT 500 mL 50 mL/hr sodium chloride 0.9 % flush central line 10 mL 10 mL, IV Push, PRN Other, IV Flush, Starting on Fri11/13/22 at 1507, Until Esme 11/14/22 at 1506, For 24 hours, Do not flush if lock, PICC, or central line not in place; IV infusing or unable to flush. Inactive Administered Medications - up to 3 most recent administrations Medication Order MAR Action Action Date Dose Rate Site Zoledronic Acid (Zometa) 4 mg in 100 mL PREMIX ivpb 4 mg, IV Piggyback, ONCE, 1 dose, On Fri11/13/22 at 1615 Start Infusion 11/13/2022 3:39 PM EDT 4 mg 400 mL/hr documented in this encounter Care Teams Software Quality Manager Relationship Specialty Start Date End Date Isak August DO [address] [place] [address] PCP - General Family Medicine 11/21/20 documented as of this encounter
--- OUTSIDE RECORDS SUMMARY | 2023-04-10 18:33 | External Medical Summary ---
Author Name Unknown Address Unknown Organization K09[facility] [place] [address] Laboratory Report Ordering Provider Test Date Status AB TEJEDA 12/11/2022 12:40:31 Final Observation Date Value Abnormality Reference (Units ) Status SYNC LEUKOCYTES IN BLOOD BY AUTOMATED COUNT 12/11/2022 12:40:31 7.86 4.00-10.80 (K/uL) Final Segs 12/11/2022 12:40:31 56.4 40.0-75.0 (%) Final Lymphs % 12/11/2022 12:40:31 31.2 18.0-42.0 (%) Final Monos 12/11/2022 12:40:31 8.5 1.0-11.0 (%) Final Eosinophils 12/11/2022 12:40:31 3.4 0.0-6.0 (%) Final Basos 12/11/2022 12:40:31 0.5 0.0-2.0 (%) Final Absolute Segs 12/11/2022 12:40:31 4.43 1.80-7.70 (K/uL) Final Lymphs, absolute 12/11/2022 12:40:31 2.45 1.00-4.80 (K/ul) Final Monos, Abs 12/11/2022 12:40:31 0.67 0.00-1.10 (K/uL) Final Eos, Abs 12/11/2022 12:40:31 0.27 0.00-0.70 (K/uL) Final Basos, Abs 12/11/2022 12:40:31 0.04 0.00-0.20 (K/uL) Final Performing Location [facility] [place] [address]
--- OUTSIDE RECORDS SUMMARY | 2023-04-10 18:33 | External Medical Summary ---
Author Name Unknown Address Unknown Organization K09:[facility] [address] Laboratory Report Ordering Provider Test Date Status AB TEJEDA 10/16/2022 12:35:38 Final Observation Date Value Abnormality Reference (Units ) Status WBC, Total 10/16/2022 12:35:38 6.51 4.00-10.8 0 (K/uL) Final RBC 10/16/2022 12:35:38 3.99 4.50-5.25 (M/uL) Final Hemoglobin 10/16/2022 12:35:38 12.3 Below low normal 14 .0-16.8 (g/dL) Final HCT 10/16/2022 12:35:38 35.6 Below low normal 40. 0-48.4 (%) Final MCV 10/16/2022 12:35:38 89.2 82.0-99.5 (fL) Final MCH 10/16/2022 12:35:38 30.8 27.0-34.0 (pg) Final MCHC 10/16/2022 12:35:38 34.6 32.0-36.0 (g/dL) Final RDW 10/16/2022 12:35:38 12.4 11.5-15.5 (%) Final Platelets 10/16/2022 12:35:38 169 140-400 (K /uL) Final MPV 10/16/2022 12:35:38 11.2 6.6-11.1 ( fL) Final Performing Location [facility] [place] [address]
--- OUTSIDE RECORDS SUMMARY | 2023-04-10 18:33 | External Medical Summary | Summary of Care ---
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) Procedures IN ZOLEDRONIC ACID 1MG Cecy Skinner MD [address] [facility] [place] [address] Anc Hem/Onc [place] [address] [place] [place] [phone] Referral ID Status Reason Start Date Expiration Date V isits Requested Visits Authorized [id number] Authorized 01/14/2022 05/18/2099 99 99 Encounter Details Date Type Department Care Team Description 10/16/2022 Hem/Onc Treatment Hematology/Oncology Treatment, [place] [address] [facility] [place] [address] Subha, Chair 10 Hem On[address] [place] [address] 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 Influenza Virus Vacc 01/29/2011 Had flu like reaction after taking it. documented as of this encounter (statuses as of 10/16/2022) Medications Medication Sig Dispensed Refills Start Date End Date Status Carvedilol 3.125 MG Oral Tablet (Coreg)Indications:H TN, goal below 140/90 Take by mouth 1 Tablet in the morning AND 1 Tablet before bedtime. With food.. 180 Tablet 3 11/22/2021 Active Allopurinol 300 MG Oral Tablet (Zyloprim)Indication s:Idiopathic chronic gout of foot without tophus, unspecified laterality Take by mouth 1 Tablet in the morning. 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 90 Capsule 3 12/20/2021 Active Lisinopril 40 MG Oral Tablet Take 1 Tablet by mouth in the morning. 90 Tablet 3 05/29/2022 Active Zoledronic Acid 4 MG/100ML Intravenous Solution Administer 4 mg intravenously once. 0 Active Rosuvastatin Calcium 40 MG Oral Tablet (Crestor)Indications :Dyslipidemia, goal LDL below 100 Take 1 Tablet by mouth in the morning. 90 Tablet 3 06/04/2022 Active Naproxen 500 MG Oral Tablet (Naprosyn)Indication s:Right flank pain Take 1 Tablet by mouth 2 times a day as needed (pain). 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 TAKE WITH OR WITHOUT FOOD 120 Tablet 5 07/22/2022 Active Albuterol Sulfate HFA 108 (90 Base) MCG/ACT Inhalation Aerosol SolutionIndications: Asthma, allergic, unspecified asthma severity, uncomplicated USE 2 INHALATIONS EVERY 4-6 HOURS NEEDED for asthma 54 g 1 08/01/2022 Active documented as of this encounter (statuses as of 10/16/2022) Active Problems Problem Noted Date Metastatic castration-sensitive [...] as of this encounter (statuses as of 10/16/2022) Resolved Problems Problem Noted Date Resolved Date [...] as of this encounter (statuses as of 10/16/2022) Immunizations Name Administration Dates Next Due TDAP [...] Sign Reading Time Taken Comments Blood Pressure 137/85 10/16/2022 1:15 PM EDT Pulse 81 10/16/2022 1:15 PM EDT Temperature - - Respiratory Rate 18 10/16/2022 1:15 PM EDT Oxygen Saturation - - Inhaled Oxygen Concentration - - Weight - - Height - - Body Mass Index - - documented in this encounter Nursing Notes * Magnolia Goodman RN - 10/16/2022 4:19 PM EDT Chair 5, Reclast. Pt has no acute concerns to report since previous treatment. PIV established by DUNG Collins; reclast infused per order. Pt tolerated well. Pt discharged in stable condition. documented in this encounter Plan of Treatment Upcoming Encounters Date Type Specialty Care Team Description 11/13/2022 Laboratory Laboratory [facility] [place] [address] [place] [address] 11/13/2022 Office Visit Hematology Oncology Cecy Skinner MD 200 [facility] [place] [address] 11/13/2022 Hem/Onc Treatment Hematology Oncology [place], Chair 11 Hem Onc Scene [address] [place] [address] [address] 12/05/2022 Office Visit Family Medicine Isak August, [address] [place] [address] 12/11/2022 Laboratory Laboratory [place], Lab Scenery [address] [place] [address] 12/11/2022 Hem/Onc Treatment Hematology Oncology [place], Chair 10 Hem Onc Scenery [address] [place] [address] 12/25/2022 Office Visit Urology Erik Benitez MD [address] [place] [address] 12/26/2022 Pharm[place] [facility] [place] Hem/Onc [address] [place] [address] Health Maintenance Due Date Last Done Comments COVID-19 Vaccine (#1) 02/25/1956 Pneumococcal Vaccine: 65+ Years (1 - PCV) 08/27/1963 Zoster Vaccines (1 of 2) 1976 Cologuard 2002 Colonoscopy 2002 Fecal Occult Blood Test 2002 Sigmoidoscopy 2002 Depression Screening, Annual for Pts 12 and Over 02/03/2021 02/04/2020 DIABETES-FOOT EXAM 11/22/2022 11/22/2021, 04/12/2019 HbA1c 11/26/2022 05/29/2022, 060 11/2021, 11/21/2020, Additional history exists Albumin/Creatinine Ratio [...] ONCE PRN Other, Hypersensitivity Reaction, Starting on Fri10/16/22 at 1326, Until Esme 10/17/22 at 1325, For 24 hours EPINEPHrine 1 MG/ML inj 0.3 mg 0.3 mg, Intramuscular, ONCE PRN Other, Hypersensitivity Reaction or Anaphylaxis, Starting on Fri10/16/22 at 1326, Until Esme 10/17/22 at 1325, For 24 hours hEParin 100 UNIT/ML Lock Flush inj 500 Units 500 Units (5 mL), IV Lock, PRN Other, IV Flush, Starting on Fri10/16/22 at 1326, Until Esme 10/17/22 at 1325, For 24 hours, Do not flush if lock, PICC, or central line not in place; IV infusing or unable to flush. Hydrocortisone Sod Suc (PF) (Solu-Cortef) inj 100 mg 100 mg, IV Push, ONCE PRN Other, Hypersensitivity Reaction, Starting on Fri10/16/22 at 1326, Until Esme 10/17/22 at 1325, For 24 hours NSS infusion 500 mL, Intravenous, at 50 mL/hr, CONTINUOUS, Starting on Fri10/16/22 at 1430, Until Esme 10/17/22 at 0029 Start Infusion 10/16/2022 1:35 PM EDT 500 mL 50 mL/hr sodium chloride 0.9 % flush central line 10 mL 10 mL, IV Push, PRN Other, IV Flush, Starting on Fri10/16/22 at 1326, Until Esme 10/17/22 at 1325, For 24 hours, Do not flush if lock, PICC, or central line not in place; IV infusing or unable to flush. Inactive Administered Medications - up to 3 most recent administrations Medication Order MAR Action Action Date Dose Rate Site Zoledronic Acid (Zometa) 4 mg in 100 mL PREMIX ivpb 4 mg, IV Piggyback, ONCE, 1 dose, On Fri10/16/22 at 1430 Start Infusion 10/16/2022 1:35 PM EDT 4 mg 400 mL/hr documented in this encounter Care Teams Coding Tech Relationship Specialty Start Date End Date Isak August DO [address] [place] [address] PCP - General Family Medicine 11/21/20 documented as of this encounter
--- OUTSIDE RECORDS SUMMARY | 2023-04-10 18:33 | External Medical Summary | Summary of Care ---
Author Name Unknown Organization [facility] Address [address] [place] [address] Phone [phone] Care Team Providers Care Internal Communications Specialist Name Role Phone Isak August Primary Care Provider Reason for Visit * Reason Onset Date Comments Precert Future 10/31/2022 [place] Encounter Details Date Type Department Care Team Description 10/31/2022 Telephone Hematology/Oncology Treatment, [address] [address] Cecy Skinner MD [address] [place] [address] Precert Future () Allergies Active Allergy Reactions Severity Noted Date Comments Erythromycin Other (Please comment) 11/14/1997 Swelling and redness of arms after Erythromycin IV for pneumonia Hydrochlorothiazide Other (Please comment) 06/17/2017 Gout flare Indomethacin Other (Please comment) 11/17/2017 [place] out of body when taking. Influenza Virus Vacc 01/29/2011 Had flu like reaction after taking it. documented as of this encounter (statuses as of 10/31/2022) Medications Medication Sig Dispensed Refills Start Date [...] as of this encounter (statuses as of 10/31/2022) Active Problems Problem Noted Date Metastatic castration-sensitive [...] as of this encounter (statuses as of 10/31/2022) Resolved Problems Problem Noted Date Resolved Date [...] as of this encounter (statuses as of 10/31/2022) Immunizations Name Administration Dates Next Due TDAP [...] encounter Miscellaneous Notes * Telephone Encounter - Kadi Reese RN - 10/31/2022 3:50 PM EDT Per referral for sterling, states that prior auth is not needed. Received fax from [facility] that erleada requires prior authorization under the patients [employer] prescription drug plan. Precert: please obtain auth. Thanks! ICD-10: c61.0, z19.1 Start date: PEDRO PABLO- current medication, patient requesting refill from pharmacy Drugs: Disp Refills Start End Erleada 60 MG Oral Tablet (Apalutamide) 120 Tablet 5 07/22/2022 Sig: TAKE 4 TABLETS (240 MG) DAILY. TAKE WITH OR WITHOUT FOOD Physician: Dr Cecy Skinner SP documented in this encounter Plan of Treatment Upcoming Encounters Date Type Specialty Care Team Description 11/13/2022 Laboratory Laboratory [facility] [place] [address] [facility] [place] [address] 11/13/2022 Office Visit Hematology Oncology Cecy Skinner MD 200 [facility] [place] [address] 11/13/2022 Hem/Onc Treatment Hematology Oncology [place], Chair 11 Hem Onc Scenery 200 [facility] [place] [address] 12/05/2022 Office Visit Family Medicine Isak August, DO [address] [facility] [place] [address] 12/11/2022 Laboratory Laboratory Subha Lab Scenery 200 [facility] [place] [address] 12/11/2022 Hem/Onc Treatment Hematology Oncology [place], Chair 10 Hem Onc Scenery 200 [facility] [place] [address] 12/25/2022 Office Visit Urology Erik Benitez MD [address] [facility] [address] [place] [id number] 12/26/2022 Pharmacy [facility] Hem/Onc [address] [facility] [place] [address] Health Maintenance Due Date Last Done Comments COVID-19 Vaccine (#1) 02/25/1956 Pneumococcal Vaccine: 65+ Years (1 - PCV) 08/27/1963 Zoster Vaccines (1 of 2) 1976 Cologuard 2002 Colonoscopy 2002 Fecal Occult Blood Test 2002 Sigmoidoscopy 2002 Depression Screening, Annual for Pts 12 and Over 02/03/2021 02/04/2020 DIABETES-FOOT EXAM 11/22/2022 11/22/2021, 04/12/2019 HbA1c 11/26/2022 05/29/2022, 11/2021, 11/21/2020, Additional history exists Albumin/Creatinine Ratio 05/29/2023 05/29/2022 DIABETES-EYE EXAM 08/01/2023 07/31/2022, , 05/04/2019 GFR 10/17/2023 10/16/2022, 050 07/2022, 08/21/2022, Additional history exists Lipid Panel [...] filedocumented as of this encounter Care Teams Internal Communications Specialist Relationship Specialty Start Date End Date Isak August DO [address] [place] [address] PCP - General Family Medicine 11/21/20 documented as of this encounter
--- OUTSIDE RECORDS SUMMARY | 2023-04-10 18:33 | External Medical Summary ---
Author Name Unknown Address Unknown Organization K09:[facility] [address] [place] [address] Laboratory Report Ordering Provider Test Date Status AB TEJEDA 10/16/2022 12:35:38 Final Observation Date Value Abnormality Reference (Units ) Status BUN 10/16/2022 12:35:38 26 Above high normal 6-20 (mg/dL) Final Creatinine 10/16/2022 12:35:38 1.2 0.6-1.2 (mg/dL) Final Glomerular filtration rate/1.73 sq M.predicted [Volume Rate/Area] in Serum, Plasma or Blood by Creatinine-based formula (CKD-EPI) 10/16/2022 12:35:38 66 >=60 (mL/min) Final eGFR is calculated based on the CKD-EPI 2020 equation SODIUM 10/16/2022 12:35:38 136 135-146 (m mol/L) Final Potassium 10/16/2022 12:35:38 4.4 3.5-5.1 (m mol/L) Final Cl 10/16/2022 12:35:38 102 98-107 (mm ol/L) Final CO2 10/16/2022 12:35:38 21 Below low normal 22- 32 (mmol/L) Final Anion gap 10/16/2022 12:35:38 13 7-15 (mmol /L) Final Glucose 10/16/2022 12:35:38 226 Above high normal 70 -120 (mg/dL) Final Albumin 10/16/2022 12:35:38 4.5 3.8-5.0 (g /dL) Final AST (Aspartate aminotransferase) 10/16/2022 12:35:38 27 10-50 (U/L) Fin al Alk Phos 10/16/2022 12:35:38 56 35-130 (U/ L) Final Bilirubin, Total 10/16/2022 12:35:38 0.2 <=1 .2 (mg/dL) Final Calcium 10/16/2022 12:35:38 9.9 8.4-10.2 ( mg/dL) Final Protein 10/16/2022 12:35:38 6.7 6.0-8.3 (g /dL) Final ALT (Alanine aminotransferase) 10/16/2022 12:35:38 37 10-50 (U/L) Brendon vargas Performing Location [facility] [address] [place] [address]
--- OUTSIDE RECORDS SUMMARY | 2023-04-10 18:33 | External Medical Summary | Summary of Care ---
Author Name Unknown Organization [facility] Address [address] [facility] [place] [address] Phone [phone] Care Team Providers Care Scaffold Worker Name Role Phone Isak August DO Primary Care Provider Reason for Visit * Reason Comments Return Visit Pt here for 6 mo ret urn visit. No concerns voiced. Encounter Details Date Type Department Care Team Description 12/05/2022 Office Visit Family Practice 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 Influenza Virus Vacc 01/29/2011 Had flu like reaction after taking it. documented as of this encounter (statuses as of 12/05/2022) Medications Medication Sig Dispensed Refills Start Date [...] for asthma 54 g 1 3 Active Tamsulosin HCl 0.4 MG Oral Capsule (Flomax) Take 1 Capsule by mouth in the morning. 90 Capsule 3 3 Active Montelukast Sodium 10 MG Oral Tablet (Singulair)Indicati ons:Mild intermittent extrinsic asthma without complication Take 1 Tablet by mouth in the morning. 90 Tablet 3 3 Active Montelukast Sodium 10 MG Oral Tablet (Singulair)Indicati ons:Mild intermittent extrinsic asthma without complication TAKE 1 TABLET DAILY 90 Tablet 3 2 12/06/19 23 Discontinu ed(Refill) documented as of this encounter (statuses as of 12/05/2022) Active Problems Problem Noted Date Metastatic castration-sensitive [...] as of this encounter (statuses as of 12/05/2022) Resolved Problems Problem Noted Date Resolved Date [...] as of this encounter (statuses as of 12/05/2022) Immunizations Name Administration Dates Next Due TDAP [...] Sign Reading Time Taken Comments Blood Pressure 114/60 12/05/2022 1:47 PM EDT Pulse 112 12/05/2022 1:47 PM EDT Temperature 36.6 C (97.8 F) 12/05/2022 1:47 PM ED T Respiratory Rate 16 12/05/2022 1:47 PM EDT Oxygen Saturation 95% 12/05/2022 1:47 PM EDT Inhaled Oxygen Concentration - - Weight 124.1 kg (273 lb 9 oz) 12/05/2022 1:47 PM EDT Height - - Body Mass Index 37.89 11/22/2021 9:23 AM EDT documented in this encounter Patient Instructions * Patient Instructions* Hallie Lopez LPN - 12/05/2022 2:25 PM EDT Diabetes: Keeping Feet Healthy Inspect your feet every day for signs of a problem. Diabetes can damage nerves in your feet and cause neuropathy. This condition makes it hard for you to feel injuries or sore spots. Diabetes can also change blood flow, making it harder for small problems, like a blister, to heal properly. In fact, minor injuries can quickly become serious infections that send you to the hospital. Practice self-care to protect your feet and keep them healthy. Take Special Care Inspect your feet daily for problems such as redness, blisters, cracks, dry skin, or numbness. Use a mirror to see the bottoms of your feet. Or, ask for help. Manage your diabetes. Monitor and control your blood sugar. Take all your medications as prescribed. Avoid walking barefoot, even indoors. Wash your feet with warm water and mild soap. Dry well, especially between toes. Dont treat corns or calluses yourself. Talk to your doctor or anatomic pathology manager (a doctor who specializes in foot care) if you need assistance trimming your toenails. Use moisturizing cream or lotion if you have dry skin, but dont use it between toes. Dont use heating pads on your feet. If you have neuropathy, you could get a burn and not feel it. Stop smoking. Smoking restricts blood flow and can make it harder for wounds to heal. Have Regular Checkups Foot problems can develop quickly. So be sure to follow your healthcare teams schedule for regular checkups. During office visits, take off your shoes and socks as soon as you get in the exam room. Ask your healthcare provider to examine your feet for problems. This will make it easier to find and treat small skin irritations before they get worse. Regular checkups can also help keep track of the blood flow and feeling in your feet. If you have neuropathy, you may need to have checkups more often. Wear Proper Footwear Wearing proper footwear is very important. If areas of your feet have been damaged by too much pressure, your healthcare provider may recommend changing your footwear. In some cases, avoiding high heels or tight work boots may be all thats needed. Or, your healthcare provider may recommend special shoes or custom inserts. These help protect your feet and keep existing irritations from getting worse. If you need special footwear, ask your healthcare provider if you qualify for [employer] diabetic shoe program. Make Sure Shoes and Socks Fit Any pair of shoes--new or old--should feel comfortable as soon as you put them on. There shouldnt be any rubbing when you walk. Wear the right shoe for any activity. For instance, a running shoe is designed to keep your feet injury-free while jogging. Buy shoes at the end of the day, when your feet are larger. Make sure they provide support without feeling too loose. Make sure your socks fit, t oo. Wear soft, seamless, well-padded socks for activity. Cotton or microfiber socks are best to help to absorb sweat. To protect your feet, avoid shoes that are open-toed or open-heeled. If you have questions about what kinds of shoes and socks are best, talk to your healthcare team. Get Regular Exercise Regular exercise improves blood flow in your feet. It also increases foot strength and flexibility.Gentle exercises, like walking or riding a stationary bicycle, are best. You can also do special foot exercises. Just be sure to talk with your healthcare provider before starting any exercise program. Also mention if any exercise causes pain, redness, or other signs of foot problems. Note: If you have any kind of break in the skin of your foot or ankle, keep the area clean. Then call your doctor--especially if the area doesnt appear to be healing. [phone] [employer], [address] [place] [address], [place] [address]. All rights reserved. This information is not intended as a substitute for professional medical care. Always follow your healthcare professional's instructions. Diabetes: Keeping Feet Healthy Inspect your feet every day for signs of a problem. Diabetes can damage nerves in your feet and cause neuropathy. This condition makes it hard for you to feel injuries or sore spots. Diabetes can also change blood flow, making it harder for small problems, like a blister, to heal properly. In fact, minor injuries can quickly become serious infections that send you to the hospital. Practice self-care to protect your feet and keep them healthy. Take Special Care Inspect your feet daily for problems such as redness, blisters, cracks, dry skin, or numbness. Use a mirror to see the bottoms of your feet. Or, ask for help. Manage your diabetes. Monitor and control your blood sugar. Take all your medications as prescribed. Avoid walking barefoot, even indoors. Wash your feet with warm water and mild soap. Dry well, especially between toes. Dont treat corns or calluses yourself. Talk to your doctor or anatomic pathology manager (a doctor who specializes in foot care) if you need assistance trimming your toenails. Use moisturizing cream or lotion if you have dry skin, but dont use it between toes. Dont use heating pads on your feet. If you have neuropathy, you could get a burn and not feel it. Stop smoking. Smoking restricts blood flow and can make it harder for wounds to heal. Have Regular Checkups Foot problems can develop quickly. So be sure to follow your healthcare teams schedule for regular checkups. During office visits, take off your shoes and socks as soon as you get in the exam room. Ask your healthcare provider to examine your feet for problems. This will make it easier to find and treat small skin irritations before they get worse. Regular checkups can also help keep track of the blood flow and feeling in your feet. If you have neuropathy, you may need to have checkups more often. Wear Proper Footwear Wearing proper footwear is very important. If areas of your feet have been damaged by too much pressure, your healthcare provider may recommend changing your footwear. In some cases, avoiding high heels or tight work boots may be all thats needed. Or, your healthcare provider may recommend special shoes or custom inserts. These help protect your feet and keep existing irritations from getting worse. If you need special footwear, ask your healthcare provider if you qualify for [employer] diabetic shoe program. Make Sure Shoes and Socks Fit Any pair of shoes--new or old--should feel comfortable as soon as you put them on. There shouldnt be any rubbing when you walk. Wear the right shoe for any activity. For instance, a running shoe is designed to keep your feet injury-free while jogging. Buy shoes at the end of the day, when your feet are larger. Make sure they provide support without feeling too loose. Make sure your socks fit, t oo. Wear soft, seamless, well-padded socks for activity. Cotton or microfiber socks are best to help to absorb sweat. To protect your feet, avoid shoes that are open-toed or open-heeled. If you have questions about what kinds of shoes and socks are best, talk to your healthcare team. Get Regular Exercise Regular exercise improves blood flow in your feet. It also increases foot strength and flexibility.Gentle exercises, like walking or riding a stationary bicycle, are best. You can also do special foot exercises. Just be sure to talk with your healthcare provider before starting any exercise program. Also mention if any exercise causes pain, redness, or other signs of foot problems. Note: If you have any kind of break in the skin of your foot or ankle, keep the area clean. Then call your doctor--especially if the area doesnt appear to be healing. [phone] [employer], [address] [place] [address], [place] [address]. All rights reserved. This information is not intended as a substitute for professional medical care. Always follow your healthcare professional's instructions. documented in this encounter Progress Notes * Hallie Lopez LPN - 12/05/2022 2:33 PM EDT DM Foot Exam completed today. Provider aware. Hallie Lopez LPN Socks and Shoes Removed for Annual Diabetic Foot Screening RIGHT FOOT: No Reddened, Cracking, Or Open Areas Noted. RIGHT Dorsalis Pedis Pulse: Palpable RIGHT Posterior Tibial Pulse: Palpable RIGHT Monofilament:Patient reports feeling monofilament pressure on plantar surface of foot LEFT FOOT: No Reddened, Cracking or Open Areas Noted. LEFT Dorsalis Pedis Pulse: Palpable LEFT Posterior Tibial Pulse: Palpable LEFT Monofilament:Patient reports feeling monofilament pressure on plantar surface of foot Do you need diabetic shoes: No * Isak August DO - 12/05/2022 1:46 PM EDT Images from the original note were not included. 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 No concerns voiced.) Presents in f/u today Doing very well overall Retired now and enjoying that Compliant with meds Due for labs Physical Exam Vitals: 12/05/22 1347 Temp: 36.6 C (97.8 F) Pulse: 112 Resp: 16 SpO2: 95% BP: 114/60 Physical Exam Constitutional: Appearance: Normal appearance. HENT: Head: Normocephalic and atraumatic. Eyes: Extraocular Movements: Extraocular movements intact. Pupils: Pupils are equal, round, and reactive to light. Cardiovascular: Rate and Rhythm: Normal rate and regular rhythm. Pulmonary: Effort: Pulmonary effort is normal. Breath sounds: Normal breath sounds. Neurological: General: No focal deficit present. Mental Status: He is alert and oriented to person, place, and time. Psychiatric: Mood and Affect: Mood normal. Behavior: Behavior normal. Wrap-Up Time: Total time today was 40 minutes excluding any time spent in the performance of separately billed services. documented in this encounter Plan of Treatment Upcoming Encounters Date Type Specialty Care Team Description 12/11/2022 Laboratory Laboratory Kimberly, Lab Scenery [address] [place] [address] 12/11/2022 Hem/Onc Treatment Hematology Oncology [place], Chair 10 Hem Onc Scenery [address] [place] [place] [address] 12/25/2022 Office Visit Urology Erik Benitez MD [address] [facility] [address] [place] [address] 12/26/2022 Pharmacy Pharmacy [facility] [address] [facility] [facility] [address] 06/09/2023 Office Visit Family Medicine Lakisha Mclain CRNP [address] [facility] [place] [address] 12/11/2023 Office Visit Family Medicine Isak August, [address] [place] [address] Health Maintenance Due Date Last Done Comments COVID-19 Vaccine (#1) 1962 Pneumococcal Vaccine: 65+ Years (1 - PCV) 08/27/1963 Zoster Vaccines (1 of 2) 1976 Cologuard 2002 Colonoscopy 2002 Fecal Occult Blood Test 2002 Sigmoidoscopy 2002 Depression Screening, Annual for Pts 12 and Over 02/03/2021 02/04/2020 AAA Screening 2022 HbA1c 11/26/2022 05/29/2022, 11/2021, 11/21/2020, Additional history exists Albumin/Creatinine Ratio 05/29/2023 05/29/2022 DIABETES-EYE EXAM 08/01/2023 07/31/2022, , 05/04/2019 GFR 11/14/2023 11/13/2022, 09/18, 09/18/2022, Additional history exists DIABETES-FOOT EXAM 12/06/2023 12/05/2022, 0 12/05/2022, 11/22/2021, Additional history exists Lipid Panel 08/22/2027 08/21/2022, [...] this encounter Visit Diagnoses Diagnosis Diabetes mellitus without complication (HCC)- Primary Type II or unspecified type diabetes mellitus without mention of complication, not stated as uncontrolled Dyslipidemia, goal LDL below 100 Other and unspecified hyperlipidemia 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
--- OUTSIDE RECORDS SUMMARY | 2023-04-10 18:33 | External Medical Summary | Summary of Care ---
Author Name Unknown Organization [facility] Address [address] [place] [address] Phone [phone] Care Team Providers Care Med Specialist Name Role Phone Isak August Primary Care Provider Reason for Visit * Reason Onset Date Comments Precert Not Needed 10/31/2022 [place] - Erleada 60mg - 11/01/22 Encounter Details Date Type Department Care Team Description 10/31/2022 Telephone Hematology/Oncology Treatment, [address] [address] Cecy Skinner MD [address] [place] [address] Precert Not Needed ([place] - Erleada 60mg [...] as of this encounter (statuses as of 11/01/2022) Medications Medication Sig Dispensed Refills Start Date [...] as of this encounter (statuses as of 11/01/2022) Active Problems Problem Noted Date Metastatic castration-sensitive [...] as of this encounter (statuses as of 11/01/2022) Resolved Problems Problem Noted Date Resolved Date [...] as of this encounter (statuses as of 11/01/2022) Immunizations Name Administration Dates Next Due Seasonal [...] encounter Miscellaneous Notes * Telephone Encounter - Bella M Box, VALERIO - 11/01/2022 7:33 AM EDT Images from the original note were not included. Drug does not require PA. * Telephone Encounter - Kadi Reese RN - 10/31/2022 3:50 PM EDT Per referral for erleada, states that prior auth is not needed. Received fax from [facility] that erleada requires prior authorization under [...] 11/13/2022 Laboratory Laboratory Subha, Lab Scenery [address] [facility] [place] [address] 11/13/2022 Office Visit Hematology Oncology Cecy Skinner MD [address] [place] [address] 11/13/2022 Hem/Onc Treatment Hematology Oncology [place], Chair 11 Hem Onc Scenery [address] [place] [address] 12/05/2022 Office Visit Family Medicine Isak August, DO [address] [place] [address] 12/11/2022 Laboratory Laboratory [place], Lab Scenery [address] [place] [address] 12/11/2022 Hem/Onc Treatment Hematology Oncology [place], Chair 10 Hem Onc Scenery [address] [place] [address] 12/25/2022 Office Visit Urology Erik Benitez MD [address] [place] [address] 12/26/2022 Pharmacy Pharmacy [facility] Hem/Onc [address] [place] [address] Health Maintenance Due Date Last Done Comments COVID-19 Vaccine (#1) 02/25/1956 Pneumococcal Vaccine: 65+ Years (1 - PCV) 08/27/1963 Zoster Vaccines (1 of 2) 1976 Cologuard 2002 Colonoscopy 2002 Fecal Occult Blood Test 2002 Sigmoidoscopy 2002 Depression Screening, Annual for Pts 12 and Over 02/03/2021 02/04/2020 DIABETES-FOOT EXAM 11/22/2022 11/22/2021, 04/12/2019 HbA1c 11/26/2022 05/29/2022, 0611/2021, 11/21/2020, Additional history [...] filedocumented as of this encounter Care Teams Med Specialist Relationship Specialty Start Date End Date Isak August DO [address] [place] [address] PCP - General Family Medicine 11/21/20 documented as of this encounter
--- OUTSIDE RECORDS SUMMARY | 2023-04-10 18:33 | External Medical Summary ---
Author Name Unknown Address Unknown Organization [id number][facility] [place] [address] Laboratory Report Ordering Provider Test Date Status AB TEJEDA 11/13/2022 14:29:47 Final Observation Date Value Abnormality Reference (Units ) Status WBC, Total 11/13/2022 14:29:47 7.32 4.00-10.8 0 (K/uL) Final RBC 11/13/2022 14:29:47 4.11 4.50-5.25 (M/uL) Final Hemoglobin 11/13/2022 14:29:47 13.0 Below low normal 14 .0-16.8 (g/dL) Final HCT 11/13/2022 14:29:47 37.2 Below low normal 40. 0-48.4 (%) Final MCV 11/13/2022 14:29:47 90.5 82.0-99.5 (fL) Final MCH 11/13/2022 14:29:47 31.6 27.0-34.0 (pg) Final MCHC 11/13/2022 14:29:47 34.9 32.0-36.0 (g/dL) Final RDW 11/13/2022 14:29:47 12.4 11.5-15.5 (%) Final Platelets 11/13/2022 14:29:47 182 140-400 (K /uL) Final MPV 11/13/2022 14:29:47 11.5 6.6-11.1 ( fL) Final Performing Location [facility] [place] [address]
--- OUTSIDE RECORDS SUMMARY | 2023-04-10 18:33 | External Medical Summary ---
Author Name Unknown Address Unknown Organization K09[facility] [place] [address] Laboratory Report Ordering Provider Test Date Status AB TEJEDA 11/13/2022 14:29:47 Final Observation Date Value Abnormality Reference (Units ) Status SYNC LEUKOCYTES IN BLOOD BY AUTOMATED COUNT 11/13/2022 14:29:47 7.32 4.00-10.80 (K/uL) Final Segs 11/13/2022 14:29:47 57.1 40.0-75.0 (%) Final Lymphs % 11/13/2022 14:29:47 30.7 18.0-42.0 (%) Final Monos 11/13/2022 14:29:47 8.1 1.0-11.0 (%) Final Eosinophils 11/13/2022 14:29:47 3.6 0.0-6.0 (%) Final Basos 11/13/2022 14:29:47 0.5 0.0-2.0 (%) Final Absolute Segs 11/13/2022 14:29:47 4.18 1.80-7.70 (K/uL) Final Lymphs, absolute 11/13/2022 14:29:47 2.25 1.00-4.80 (K/ul) Final Monos, Abs 11/13/2022 14:29:47 0.59 0.00-1.10 (K/uL) Final Eos, Abs 11/13/2022 14:29:47 0.26 0.00-0.70 (K/uL) Final Basos, Abs 11/13/2022 14:29:47 0.04 0.00-0.20 (K/uL) Final Performing Location [facility] [place] [place] [address]
--- OUTSIDE RECORDS SUMMARY | 2023-04-10 18:33 | External Medical Summary ---
Author Name Unknown Address Unknown Organization [facility] [address] [place] [address] Laboratory Report Ordering Provider Test Date Status AB TEJEDA 11/13/2022 14:29:47 Final Observation Date Value Abnormality Reference (Units ) Status BUN 11/13/2022 14:29:47 25 Above high normal 6-20 (mg/dL) Final Creatinine 11/13/2022 14:29:47 1.1 0.6-1.2 (mg/dL) Final Glomerular filtration rate/1.73 sq M.predicted [Volume Rate/Area] in Serum, Plasma or Blood by Creatinine-based formula (CKD-EPI) 11/13/2022 14:29:47 75 >=60 (mL/min) Final eGFR is calculated based on the CKD-EPI 2020 equation SODIUM 11/13/2022 14:29:47 132 Below low normal 135 -146 (mmol/L) Final Potassium 11/13/2022 14:29:47 4.7 3.5-5.1 (m mol/L) Final Cl 11/13/2022 14:29:47 97 Below low normal 98- 107 (mmol/L) Final CO2 11/13/2022 14:29:47 22 22-32 (mmo l/L) Final Anion gap 11/13/2022 14:29:47 13 7-15 (mmol /L) Final Glucose 11/13/2022 14:29:47 292 Above high normal 70 -120 (mg/dL) Final Albumin 11/13/2022 14:29:47 4.1 3.8-5.0 (g /dL) Final AST (Aspartate aminotransferase) 11/13/2022 14:29:47 33 10-50 (U/L) Fin al Result may be falsely elevat ed due to hemolysis. Alk Phos 11/13/2022 14:29:47 58 35-130 (U/ L) Final Bilirubin, Total 11/13/2022 14:29:47 0.2 <=1 .2 (mg/dL) Final Calcium 11/13/2022 14:29:47 9.7 8.4-10.2 ( mg/dL) Final Protein 11/13/2022 14:29:47 6.5 6.0-8.3 (g /dL) Final ALT (Alanine aminotransferase) 11/13/2022 14:29:47 43 10-50 (U/L) Final Performing Location [facility] [address] [place] [address]
--- OUTSIDE RECORDS SUMMARY | 2023-04-10 18:33 | External Medical Summary | Summary of Care ---
Author Name Unknown Organization [facility] Address [address] [address] Phone [phone] Care Team Providers Care Dope Sprayer Name Role Phone Isak August DO Primary Care Provider Reason for Visit * Reason Onset Date Comments Medication Refill 10/29/2022 Encounter Details Date Type Department Care Team Description 10/29/2022 Refill Urology, [facility] [address] [facility] [place] [address] Erik Moody MD [address] [facility] [address] [place] [address] Allergies Active Allergy Reactions Severity Noted Date Comments Erythromycin Other (Please comment) 11/14/1997 Swelling and redness of arms after Erythromycin IV for pneumonia Hydrochlorothiazide Other (Please comment) 06/17/2017 Gout flare Indomethacin Other (Please comment) 11/17/2017 [place] out of body when taking. Influenza Virus Vacc 01/29/2011 Had flu like reaction after taking it. 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 90 Capsule 3 3 Active Tamsulosin HCl 0.4 MG Oral Capsule (Flomax) Take by mouth 1 Capsule in the morning. 90 Capsule 3 2 10/30/19 23 Discontinu ed(Refill) documented as of this encounter (statuses as of 10/30/2022) Active Problems Problem Noted Date Metastatic castration-sensitive [...] as of this encounter (statuses as of 10/30/2022) Resolved Problems Problem Noted Date Resolved Date [...] as of this encounter (statuses as of 10/30/2022) Immunizations Name Administration Dates Next Due TDAP [...] encounter Miscellaneous Notes * Telephone Encounter - Erik Moody MD - 10/30/2022 3:34 PM EDTSigned Prescriptions: Disp Refills Tamsulosin HCl 0.4 MG Oral Capsule (Flomax)90 Cap*3 Sig: Take 1 Capsule by mouth in the morning. Authorizing Provider: ERIK MOODY * Telephone Encounter - Lakisha Sheridan LPN - 10/29/2022 10:59 AM EDT Refill of tamsulosin requested from patient's pharmacy. Last appt: 09/03/2022 (in office), Visit date not found (telemedicine) Next appt: 12/25/2022 Review of patient's allergies indicates: Allergen Reactions Erythromycin Other (Please comment) Swelling and redness of arms after Erythromycin IV for pneumonia Hctz [Hydrochlorothiazide] Other (Please comment) Gout flare Indomethacin Other (Please comment) [place] out of body when taking. Influenza Virus Vacc Had flu like reaction after taking it. Thank you Latrice documented in this encounter Plan of Treatment Upcoming Encounters Date Type Specialty Care Team Description 11/13/2022 Laboratory Laboratory [facility] [address] [place] [address] 11/13/2022 Office Visit Hematology Oncology Cecy Skinner MD [address] [facility] [place] [address] 11/13/2022 Hem/Onc Treatment Hematology Oncology Subha, Chair [address] Hem Onc Scene [address] [place] [address] 12/05/2022 Office Visit Family Medicine Isak August, DO [address] [facility] [place] [address] 12/11/2022 Laboratory Laboratory Subha, Lab Scenery [address] [place] [address] 12/11/2022 Hem/Onc Treatment Hematology Oncology [place], Chair 10 Hem Onc Scenery [address] [place] [address] 12/25/2022 Office Visit Urology Erik Moody MD [address] [facility] [address] [facility] [place] [address] 12/26/2022 Pharmacy Pharmacy [facility] [place] Hem/Onc [address] [place] [address] Health Maintenance Due Date Last [...] filedocumented as of this encounter Care Teams Dope Sprayer Relationship Specialty Start Date End Date Isak August, [address] [place] [address] PCP - General Family Medicine 11/21/20 documented as of this encounter
--- OUTSIDE RECORDS SUMMARY | 2023-04-10 18:33 | External Medical Summary | Summary of Care ---
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 Influenza Virus [...] Encounters Date Type Specialty Care Team Description 10/16/2022 Hem/Onc Treatment Hematology Oncology [place], Chair [address] Hem Onc Scenery [address] [place] [address] Arrived 11/13/2022 Laboratory Laboratory Subha Lab Scenery [address] [facility] [place] [address] 11/13/2022 Office Visit Hematology Oncology Cecy Skinner MD [address] [place] [address] 11/13/2022 Hem/Onc Treatment Hematology Oncology [place], Chair 11 Hem Onc Scene [address] [facility] [place] [address] 12/05/2022 Office Visit Family Medicine Isak August, [address] [place] [address] 12/25/2022 Office Visit Urology Erik Benitez MD [address] [place] [address] 12/26/2022 Pharmacy Pharmacy [facility] [place] Hem/Onc [address] [place] [address] Pending Results Name Type Priority Associated Diagnoses Date /Time COMPREHENSIVE METABOLIC PANEL Lab STAT 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) 10/16/2022 12:35 PM EDT PSA Lab Routine 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) 10/16/2022 12:35 PM EDT Health Maintenance Due Date Last [...] DIABETES-EYE EXAM 08/01/2023 07/31/2022, , 05/04/2019 GFR 09/19/2023 09/18/2022, 04/0 09/2022, 07/24/2022, Additional history exists Lipid Panel 08/22/2027 08/21/2022, [...] Date/Time Associated Diagnosis Comments DIFFERENTIAL, AUTOMATED STAT 10/16/2022 12:35 PM EDT 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) CBC WITH WBC DIFFERENTIAL STAT 10/16/2022 12:35 PM EDT 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) CBC STAT 10/16/2022 12:35 PM EDT 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) documented in this encounter Results * DIFFERENTIAL, AUTOMATED (10/16/2022 12:35 PM EDT) WBC 6.51 4.00 - 10.80 K/uL 10/16/2022 12:41 PM EDT [facility] 56-02 Neutrophils % 53.4 40.0 - 75.0 % 10/16/2022 12:41 PM EDT [facility] 56-02 Lymphocytes % 33.5 18.0 - 42.0 % 10/16/2022 12:41 PM EDT [facility] 56-02 Monocytes % 8.9 1.0 - 11.0 % 10/16/2022 12:41 PM EDT [facility] 56 Eosinophils % 3.7 0.0 - 6.0 % 10/16/2022 12:41 PM EDT [facility] 56 Basophils % 0.5 0.0 - 2.0 % 10/16/2022 12:41 PM EDT [facility] 56 Absolute Neutrophils 3.48 1.80 - 7.70 K/uL 10/16/2022 12:41 PM EDT [facility] Absolute Lymphocytes 2.18 1.00 - 4.80 K/ul 10/16/2022 12:41 PM EDT [facility] 56 Absolute Monocytes 0.58 0.00 - 1.10 K/uL 10/16/2022 12:41 PM EDT [facility] 56 Absolute Eosinophils 0.24 0.00 - 0.70 K/uL 10/16/2022 12:41 PM EDT [facility] Absolute Basophils 0.03 0.00 - 0.20 K/uL 10/16/2022 12:41 PM EDT [facility] 56 Blood Venous blood specimen / Unknown Venipuncture / Unknown 10/16/2022 12:35 PM EDT 10/16/2022 12:35 PM EDT Cecy Skinner MD LAB BLOOD ORDERA BLES [facility] [address] [place] [address] * (ABNORMAL) CBC (10/16/2022 12:35 PM EDT) WBC 6.51 4.00 - 10.80 K/uL 10/16/2022 12:41 PM EDT [facility] RBC 3.99 4.50 - 5.25 M/uL 10/16/2022 12:41 PM EDT [facility] 56 HGB 12.3(L) 14.0 - 16.8 g/dL 10/16/2022 12:41 PM EDT [facility] 56 HCT 35.6(L) 40.0 - 48.4 % 10/16/2022 12:41 PM EDT [facility] 56 MCV 89.2 82.0 - 99.5 fL 10/16/2022 12:41 PM EDT [address] MCH 30.8 27.0 - 34.0 pg 10/16/2022 12:41 PM EDT [address] MCHC 34.6 32.0 - 36.0 g/dL 10/16/2022 12:41 PM EDT [address] RDW 12.4 11.5 - 15.5 % 10/16/2022 12:41 PM EDT [address] PLT 169 140 - 400 K/uL 10/16/2022 12:41 PM EDT [address] MPV 11.2 6.6 - 11.1 fL 10/16/2022 12:41 PM EDT [place] [address] Blood Venous blood specimen / Unknown Venipuncture / Unknown 10/16/2022 12:35 PM EDT 10/16/2022 12:35 PM EDT Cecy Skinner MD LAB BLOOD [facility]ES [facility] [address] [place] [address] documented in this encounter Visit Diagnoses Diagnosis 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
[2023-04-10] MEDS ORDERED: CEFEPIME 2,000 MG/20 ML VIAL IV STA (18:39)
[2023-04-10] MEDS: SODIUM CHLORIDE 0.9% 1,000 ML IV SCH ×2 (18:46→19:50)
--- NOTE | 2023-04-10 19:04 | Emergency Department Note ---
Impression & Plan Sepsis, Anaplasmosis, Acute hyponatremia ED Provider Note NAME: GARETT HAYES AGE: 67 SEX: M : 1955 ARRIVES VIA: Walk-In INFORMANT: Patient ED PROVIDER(S): Jose Gross DO CHIEF COMPLAINT: fevers HPI: Patient is a 67-year-old male with prostate cancer on oral medications that presents the ER for fevers of 103 since Friday. He admits to cough and congestion. Does have shortness of breath. No chest pain. Does have dysuria, urgency, and frequency. Denies any belly pain. No open wounds or sores. No vomiting. notes that he is very weak and rundown and cannot get around. He is also lightheaded when he gets up. ADDITIONAL HISTORY OBTAINED: Per HPI Chronic Medical/Social Conditions Affecting Care: Per HPI PAST MEDICAL HISTORY:See Below PAST SURGICAL HISTORY:See Below FAMILY HISTORY:See Below SOCIAL HISTORY:See Below HOME MEDICATIONS:See Below ALLERGIES:See Below VITALS:See Below PHYSICAL EXAMINATION: GENERAL: Sitting up in bed, alert, well appearing, well nourished, no distress, non-toxic EYE EXAM: normal conjunctiva. PERRL and EOM's grossly intact. OROPHARYNX: no exudate, no erythema, lips, buccal mucosa, and tongue normal and mucous membranes are dry NECK: supple, no nuchal rigidity, no adenopathy, non-tender LUNGS: Clear to auscultation. Normal chest wall mechanics HEART: no murmurs, S1 normal and S2 normal ABDOMEN: abdomen soft, non-tender, normo-active bowel sounds, no masses, no rebound or guarding. BACK: Back is symmetrical on inspection and there is no deformity, no midline tenderness, no CVA tenderness. SKIN: no rashes and no bruising UPPER EXTREMITIES: upper extremities are grossly normal. LOWER EXTREMITIES: No pitting edema. NEURO EXAM: Normal sensorium, cranial nerves II-XII grossly intact, normal speech, no gross weakness of arms, no gross weakness of legs. No drift. Finger to nose intact. Gross sensation intact. MEDICAL DECISION MAKING: Patient is a 67-year-old male who presents ER for fevers and chills. IV was established blood was obtained. Patient was febrile and tachycardic. Labs show leukopenia of 3000. Mild anemia at 13. Platelets were low at 64. Hyponatremia at 128. Creatinine 1.6. Sugars were elevated 400. Bilirubin LFTs were unremarkable. Pro-Andreas was normal. 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 Patient was given IV fluids and cefepime. Patient was given IV doxycycline after the anaplasmosis smear came back. Patient was updated bedside. Given IV fluids. Discussed with the hospitalist for further evaluation management treatment. External Records Reviewed: May 2020 sleep study was [facility] which showed obstructive sleep apnea by Bertha Hardy Consults/Care Managements Discussions: Per [facility] Triage Nursing notes reviewed. Limited review of prior medical records performed Vital Signs: reviewed and remarkable for hypotension Differential diagnosis: Differential diagnosis includes etiologies such as sepsis, UTI, pneumonia, metabolic, electrolyte abnormalities, cardiac sources, intracerebral event, toxicologic, neurological, as well as others were entertained. ER treatment provided: See below Diagnostics interpreted by me include EKG and cardiac monitoring as listed below: -Cardiac Monitoring: An order was placed for continuous cardiac monitoring. The monitor shows a rate of 101 with sinus rhythm. -ECG: Sinus rhythm rate of 96 Normal axis No PVCs QTc 470 -Laboratory studies:Interpreted by me as stated above in MDM and shown below. Imaging studies: Xrays: As interpreted by me: Portable AP upright 1 view of the chest shows no focal CTs show: none Procedures:none Critical Care: None Past Med/Surg History Medical History Hypercholesteremia Hypertension Family History Father , Passed age 59 Pancreatic cancer Mother No problems noted. Brother Prostate cancer active surveillance Grandfather (Paternal) Lung cancer Brother No problems noted. Daughter No problems noted. Daughter No problems noted. Son No problems noted. Social History Smoking Status: Former smoker Tobacco Type: Cigarettes and Smokeless Tobacco (Dip or Chew) Second Hand Exposure: Yes (parents smoked in home); Do You Dip or Chew Tobacco: No (Former); Hx Alcohol Use: No Hx Substance Use: No Preferred Language: Hungarian Communication Ability: Effective Visual Impairment: Limited Hearing Ability: Normal Master Data Analyst Required: No Beliefs That Will Affect Care: None marital status: marital status details: Rosalinda Current Living Situation: Spouse current occupational status: employed How many Children do You have: 3 Feels Safe at Home: Yes Childhood Exposure to Second-Hand Smoke: Yes (parents smoked in home) Diet: low salt caffeine: Yes (coffee) during the past year weight has: remained stable Dental Care, Regularly: No Assistive Devices: Denture - Upper, Denture - Lower and Glasses Allergies Allergies Allergy/AdvReac Type Severity Reaction Status Date / Time erythromycin base Allergy Intermediate SEE COMMENT Verified 01/20/22 00:07 Influenza Virus Vaccines AdvReac Severe SEVERE Verified 01/20/22 00:07 FLU-LIKE SYMPTOMS hydrochlorothiazide AdvReac Intermediate GOUT FLARE Verified 01/20/22 00:07 UP indomethacin AdvReac Intermediate OUT OF Verified 01/20/22 00:07 BODY FEELING Home Meds Home Medications Medication Instructions Recorded Confirmed albuterol sulfate 90 mcg/actuation 2 puff inhalation Q4 PRN Shortness 04/10/23 04/10/23 aerosol inhaler (Ventolin HFA) Of Breath Or Wheezing allopurinol 300 mg tablet 300 mg PO DAILY 04/10/23 04/10/23 apalutamide 60 mg tablet (Erleada) 240 mg PO DAILY 04/10/23 04/10/23 carvedilol 3.125 mg tablet 3.125 mg PO BID 04/10/23 04/10/23 lisinopril 40 mg tablet 40 mg PO DAILY 04/10/23 04/10/23 rosuvastatin 40 mg tablet 40 mg PO DAILY 04/10/23 04/10/23 silodosin 8 mg capsule 8 mg PO DAILY 04/10/23 04/10/23 Results & Data (ED) Vital Signs Vital Signs - 24 hr 04/10/23 18:32 04/10/23 18:39 04/10/23 18:40 Temperature 37.4 C Temperature Source Oral Pulse Rate 109 H Pulse Rate [Apical] 105 H Pulse Rate from SpO2 Sensor Pulse Rhythm Regular Pulse Strength Normal Respiratory Rate 22 18 Respiratory Effort / Characteristics Non-Labored Spontaneous Non-Labored Spontaneous Respiratory Depth Normal Normal Respiratory Pattern Regular Regular Blood Pressure 77/52 L Blood Pressure [Right Arm] 119/89 Blood Pressure Mean 60 Blood Pressure Mean [Right Arm] 99 Blood Pressure Position Sitting Blood Pressure Position [Right Arm] Semi-fowlers Pulse Oximetry 93 93 92 Oxygen Delivery Method Room Air Room Air Room Air Sepsis Recent Fever Within 48 Hours Yes Sepsis New/Unexplained Change in Mental Status No Sepsis Action Taken by Nursing No Action Required 04/10/23 18:50 04/10/23 18:51 04/10/23 19:00 Temperature Temperature Source Pulse Rate 104 H 104 H 101 H Pulse Rate [Apical] Pulse Rate from SpO2 Sensor 101 H 101 H Pulse Rhythm Pulse Strength Respiratory Rate 23 19 Respiratory Effort / Characteristics Respiratory Depth Respiratory Pattern Blood Pressure Blood Pressure [Right Arm] Blood Pressure Mean Blood Pressure Mean [Right Arm] Blood Pressure Position Blood Pressure Position [Right Arm] Pulse Oximetry 93 93 Oxygen Delivery Method Sepsis Recent Fever Within 48 Hours Sepsis New/Unexplained Change in Mental Status Sepsis Action Taken by Nursing 04/10/23 19:10 04/10/23 19:12 04/10/23 19:12 Temperature Temperature Source Pulse Rate 96 H 97 H Pulse Rate [Apical] Pulse Rate from SpO2 Sensor 96 H 98 H Pulse Rhythm Pulse Strength Respiratory Rate 21 24 Respiratory Effort / Characteristics Respiratory Depth Respiratory Pattern Blood Pressure 107/72 107/72 Blood Pressure [Right Arm] Blood Pressure Mean 81 83 Blood Pressure Mean [Right Arm] Blood Pressure Position Blood Pressure Position [Right Arm] Pulse Oximetry 96 93 Oxygen Delivery Method Sepsis Recent Fever Within 48 Hours Sepsis New/Unexplained Change in Mental Status Sepsis Action Taken by Nursing 04/10/23 19:23 04/10/23 19:30 04/10/23 19:45 Temperature Temperature Source Pulse Rate 99 H 96 H 98 H Pulse Rate [Apical] Pulse Rate from SpO2 Sensor 98 H 96 H 98 H Pulse Rhythm Pulse Strength Respiratory Rate 21 22 17 Respiratory Effort / Characteristics Respiratory Depth Respiratory Pattern Blood Pressure 129/78 147/82 H Blood Pressure [Right Arm] Blood Pressure Mean 95 92 Blood Pressure Mean [Right Arm] Blood Pressure Position Blood Pressure Position [Right Arm] Pulse Oximetry 97 96 96 Oxygen Delivery Method Sepsis Recent Fever Within 48 Hours Sepsis New/Unexplained Change in Mental Status Sepsis Action Taken by Nursing 04/10/23 20:00 04/10/23 20:00 04/10/23 20:15 Temperature Temperature Source Pulse Rate 98 H 79 Pulse Rate [Apical] Pulse Rate from SpO2 Sensor 101 H 94 H 80 Pulse Rhythm Pulse Strength Respiratory Rate 25 H 17 22 Respiratory Effort / Characteristics Respiratory Depth Respiratory Pattern Blood Pressure 123/102 H 148/84 H Blood Pressure [Right Arm] Blood Pressure Mean 114 105 Blood Pressure Mean [Right Arm] Blood Pressure Position Blood Pressure Position [Right Arm] Pulse Oximetry 94 95 94 Oxygen Delivery Method Sepsis Recent Fever Within 48 Hours Sepsis New/Unexplained Change in Mental Status Sepsis Action Taken by Nursing 04/10/23 20:30 04/10/23 21:00 04/10/23 21:01 Temperature Temperature Source Pulse Rate 95 H 92 H 94 H Pulse Rate [Apical] Pulse Rate from SpO2 Sensor 96 H 92 H 94 H Pulse Rhythm Pulse Strength Respiratory Rate 18 23 22 Respiratory Effort / Characteristics Respiratory Depth Respiratory Pattern Blood Pressure 144/114 H 121/69 Blood Pressure [Right Arm] Blood Pressure Mean 124 86 Blood Pressure Mean [Right Arm] Blood Pressure Position Blood Pressure Position [Right Arm] Pulse Oximetry 95 97 96 Oxygen Delivery Method Sepsis Recent Fever Within 48 Hours Sepsis New/Unexplained Change in Mental Status Sepsis Action Taken by Nursing 04/10/23 21:15 04/10/23 21:45 04/10/23 22:00 Temperature Temperature Source Pulse Rate 93 H 88 96 H Pulse Rate [Apical] Pulse Rate from SpO2 Sensor 92 H 89 96 H Pulse Rhythm Pulse Strength Respiratory Rate 28 H 28 H 23 Respiratory Effort / Characteristics Respiratory Depth Respiratory Pattern Blood Pressure 134/78 160/97 H 160/95 H Blood Pressure [Right Arm] Blood Pressure Mean 96 118 116 Blood Pressure Mean [Right Arm] Blood Pressure Position Blood Pressure Position [Right Arm] Pulse Oximetry 96 96 95 Oxygen Delivery Method Sepsis Recent Fever Within 48 Hours Sepsis New/Unexplained Change in Mental Status Sepsis Action Taken by Nursing Laboratory Data 04/10/23 18:47 04/10/23 18:47 Lab Results 04/10/23 04/10/23 04/10/23 Range/Units 18:47 19:14 20:09 WBC 3.34 L (4.8-10.8) K/ul RBC 4.57 L (4.70-6.10) M/uL Hgb 13.4 L (14.0-18.0) g/dl Hct 38.2 L (42.0-52.0) % MCV 83.6 (80.0-100.0) fL MCH 29.3 (25.0-34.0) pg MCHC 35.1 (32.0-36.0) g/dL RDW Std Deviation 37.8 (36.4-46.3) fL RDW Coeff of Mounika 12.4 (11.5-14.5) % Plt Count 64 L (130-400) K/uL MPV 12.4 (9.4-12.4) fL Immature Gran % (Auto) 0.6 % Neut % (Auto) 73.6 % Lymph % (Auto) 18.6 % [place] % (Auto) 6.6 % Eos % (Auto) 0.0 % Baso % (Auto) 0.6 % Neut # (Auto) 2.46 (1.40-6.50) K/uL Lymph # (Auto) 0.62 L (1.20-3.40) K/uL [place] # (Auto) 0.22 (0.11-0.59) K/uL Eos # (Auto) 0.00 (0.00-0.50) K/uL Baso # (Auto) 0.02 (0.00-0.20) K/uL Immature Gran # (Auto) 0.02 (0.01-0.20) K/uL Toxic Vacuolation 2+ Platelet Estimate Decreased L (Normal) Sodium 128 L (136-145) mmol/L Potassium 3.9 (3.5-5.1) mmol/L Chloride 94 L (98-107) mmol/L Carbon Dioxide 23 (21-32) mmol/L Anion Gap 11 (3-11) BUN 35 H (6-23) mg/dl Creatinine 1.62 H (0.6-1.4) mg/dl Est Cr Clr Drug Dosing 58.9 ml/min Est GFR ( Amer) 50.9 ml/min Est GFR (Non-Af Amer) 43.9 ml/min BUN/Creatinine Ratio 21.6 H (10-20) Glucose 399 H* (70-99(Fasting)) mg/dl POC Glucose 398 H* (70-99) mg/dl Lactate 2.0 (0.4-2.0) mmol/L Calcium 9.0 (8.6-10.3) mg/dl Magnesium 2.3 (1.7-2.4) mg/dl Total Bilirubin 0.8 (0.2-1.0) mg/dl Direct Bilirubin 0.1 (0-0.2) mg/dl AST 85 H (13-39) U/L ALT 46 (7-52) U/L Alkaline Phosphatase 50 (34-104) U/L Total Protein 7.0 (6.0-8.3) gm/dl Albumin 4.0 (3.4-5.0) gm/dl Procalcitonin 0.80 H (0-0.5) ng/ml Urine Color Urine Appearance (Clear) Urine pH (4.5-7.5) Ur Specific [place] (1.000-1.030) Urine Protein (Negative) Urine Glucose (UA) (Negative) Urine Ketones (Negative) Urine Blood (Negative) Urine Nitrite (Negative) Urine Bilirubin (Negative) Urine Urobilinogen (Negative) Ur Leukocyte Esterase (Negative) Anaplasma Smear See Comment A Anaplasma Comment Pos for Anaplasma SARS-CoV-2 (PCR) NEGATIVE (Negative) Influenza Type A (PCR) Negative (Neg) Influenza Type B (PCR) Negative (Neg) RSV (RT-PCR) Negative (Neg) 04/10/23 04/10/23 04/10/23 Range/Units 21:34 21:38 22:07 WBC (4.8-10.8) K/ul RBC (4.70-6.10) M/uL Hgb (14.0-18.0) g/dl Hct (42.0-52.0) % MCV (80.0-100.0) fL MCH (25.0-34.0) pg MCHC (32.0-36.0) g/dL RDW Std Deviation (36.4-46.3) fL RDW Coeff of Mounika (11.5-14.5) % Plt Count (130-400) K/uL MPV (9.4-12.4) fL Immature Gran % (Auto) % Neut % (Auto) % Lymph % (Auto) % [place] % (Auto) % Eos % (Auto) % Baso % (Auto) % Neut # (Auto) (1.40-6.50) K/uL Lymph # (Auto) (1.20-3.40) K/uL [place] # (Auto) (0.11-0.59) K/uL Eos # (Auto) (0.00-0.50) K/uL Baso # (Auto) (0.00-0.20) K/uL Immature Gran # (Auto) (0.01-0.20) K/uL Toxic Vacuolation Platelet Estimate (Normal) Sodium (136-145) mmol/L Potassium (3.5-5.1) mmol/L Chloride (98-107) mmol/L Carbon Dioxide (21-32) mmol/L Anion Gap (3-11) BUN (6-23) mg/dl Creatinine (0.6-1.4) mg/dl Est Cr Clr Drug Dosing ml/min Est GFR ( Amer) ml/min Est GFR (Non-Af Amer) ml/min BUN/Creatinine Ratio (10-20) Glucose (70-99(Fasting)) mg/dl POC Glucose 364 H* 361 H* (70-99) mg/dl Lactate (0.4-2.0) mmol/L Calcium (8.6-10.3) mg/dl Magnesium (1.7-2.4) mg/dl Total Bilirubin (0.2-1.0) mg/dl Direct Bilirubin (0-0.2) mg/dl AST (13-39) U/L ALT (7-52) U/L Alkaline Phosphatase (34-104) U/L Total Protein (6.0-8.3) gm/dl Albumin (3.4-5.0) gm/dl Procalcitonin (0-0.5) ng/ml Urine Color Yellow Urine Appearance Turbid A (Clear) Urine pH 5.0 (4.5-7.5) Ur Specific [place] 1.024 (1.000-1.030) Urine Protein 2+ H (Negative) Urine Glucose (UA) 3+ H (Negative) Urine Ketones Trace H (Negative) Urine Blood Negative (Negative) Urine Nitrite Negative (Negative) Urine Bilirubin Negative (Negative) Urine Urobilinogen Negative (Negative) Ur Leukocyte Esterase Negative (Negative) Anaplasma Smear Anaplasma Comment SARS-CoV-2 (PCR) (Negative) Influenza Type A (PCR) (Neg) Influenza Type B (PCR) (Neg) RSV (RT-PCR) (Neg) Administered Medications Discontinued Medications Sodium Chloride (Nss) 1,000 mls @ 999 mls/hr IV .[id number] RAMONA Stop: 04/10/23 20:45 Last Infusion: 04/10/23 20:51 Dose: Infused Documented By: Admin: 04/10/23 19:50 Dose: 999 mls/hr Documented By: Infusion: 04/10/23 19:47 Dose: Infused Documented By: Admin: 04/10/23 18:46 Dose: 999 mls/hr Documented By: LYNDSAY Cefepime HCl (Maxipime) 2,000 mg in 20 mls @ 5 mls/min IV NOW STA; Protocol Stop: 04/10/23 18:42 Last Admin: 04/10/23 19:23 Dose: 5 mls/min Documented By: LYNDSAY Doxycycline Hyclate 100 mg/ (Dextrose) 100 mls @ 50 mls/hr IV NOW STA Stop: 04/10/23 21:59 Last Admin: 04/10/23 20:46 Dose: 50 mls/hr Documented By: LYNDSAY Insulin Human Regular (Novolin-R Insulin Per Unit Charge) 6 units IV NOW STA Stop: 04/10/23 20:42 Last Admin: 04/10/23 20:46 Dose: 6 units Documented By: LYNDSAY Co-signed By: Imaging Data Radiologist's Impression: Chest X-Ray 04/10/23 18:39 XR chest 1V portable CLINICAL HISTORY: Sepsis TECHNIQUE: Single frontal radiograph of the chest was obtained. Comparison: Comparison is made to chest radiograph 01/19/2022 FINDINGS: No lines and tubes are seen. The cardiomediastinal silhouette is normal. The lungs are clear. No evidence of pleural effusion or pneumothorax. IMPRESSION: No acute abnormalities and in particular no radiographic evidence of pneumonia. ACT 112: Negative or not required by law. Electronically signed by: Boo Guzman M.D. 04/10/2023 7:32 PM Discharge Plan Visit Data Chief Complaint: Flu Like Symptoms Stated Complaint: FEVER, BODY ACHES, NOT EATING ED Provider: Jose Gross Discharge Problem: Sepsis, Anaplasmosis, Acute hyponatremia Forms Stand Alone Forms: My [facility] Prescriptions Prescriptions: No Action carvedilol 3.125 mg tablet 3.125 mg PO BID allopurinol 300 mg tablet 300 mg PO DAILY albuterol sulfate [Ventolin HFA] 90 mcg/actuation HFA aerosol inhaler 2 puff INHALATION Q4 PRN (Reason: Shortness Of Breath Or Wheezing) lisinopril 40 mg tablet 40 mg PO DAILY rosuvastatin 40 mg tablet 40 mg PO DAILY silodosin 8 mg capsule 8 mg PO DAILY Erleada 60 mg tablet 240 mg PO DAILY Referrals Referrals: August,Isak S., DO [Primary Care Provider] - Discharge Problem: Sepsis Qualifiers: Sepsis type: sepsis due to unspecified organism Sepsis acute organ dysfunction status: unspecified Qualified Code(s): A41.9 - Sepsis, unspecified organism
[2023-04-10 19:31] LABS: BUN Creatinine Ratio 21.6 (10-20); Bilirubin Direct 0.1 mg/dl (0-0.2); Bilirubin,Total 0.8 mg/dl (0.2-1.0); Creatinine Clr Calc Pharmacy 58.9 ml/min; Est GFR (African American) 50.9 ml/min; Est GFR (Non-African American) 43.9 ml/min; Magnesium 2.3 mg/dl (1.7-2.4); Potassium 3.9 mmol/L (3.5-5.1)
--- NOTE | 2023-04-10 19:34 | XRay Report ---
XR chest 1V portable CLINICAL HISTORY: Sepsis TECHNIQUE: Single frontal radiograph of the chest was obtained. Comparison: Comparison is made to chest radiograph 01/19/2022 FINDINGS: No lines and tubes are seen. The cardiomediastinal silhouette is normal. The lungs are clear. No evid ence of pleural effusion or pneumothorax. IMPRESSION: No acute abnormalities and in particular no radiographic evidence of pneumonia. ACT 112: Negative or not required by law. Electronically signed by: Boo Guzman M.D. 04/10/2023 7:32 PM
[2023-04-10 19:49] LABS: Hematocrit (blood only) 38.2 % (42.0-52.0); Hemoglobin 13.4 g/dl (14.0-18.0); Mean Corpuscular Hemoglobin 29.3 pg (25.0-34.0); Mean Corpuscular Hgb Conc 35.1 g/dL (32.0-36.0); Mean Corpuscular Volume 83.6 fL (80.0-100.0); Mean Platelet Volume 12.4 fL (9.4-12.4); Platelet Count 64 K/uL (130-400); RDW Coefficient of Variation 12.4 % (11.5-14.5); RDW Standard Deviation 37.8 fL (36.4-46.3); Red Blood Count 4.57 M/uL (4.70-6.10); White Blood Count 3.34 K/ul (4.8-10.8)
[2023-04-10 19:54] LABS: Basophils # (auto) 0.02 K/uL (0.00-0.20); Basophils % (auto) 0.6 %; Immature Granulocytes # (auto) 0.02 K/uL (0.01-0.20); Immature Granulocytes % (auto) 0.6 %; Lymphocytes # (auto) 0.62 K/uL (1.20-3.40); Lymphocytes % (auto) 18.6 %; Monocytes # (auto) 0.22 K/uL (0.11-0.59); Monocytes % (auto) 6.6 %; Neutrophils # (auto) 2.46 K/uL (1.40-6.50); Neutrophils % (auto) 73.6 %; Platelet Estimate Decreased (Normal); Toxic Vacuolation 2+
[2023-04-10] MEDS ORDERED: DOXYCYCLINE HYCLATE 100 MG in DEXTROSE 5% MINI-B 100 ML IV STA (20:00)
[2023-04-10 20:04] LABS: Anaplasmosis Smear(Rpt to DOH) Pos for Anaplasma
[2023-04-10 20:17] LABS: Influenza A virus by PCR Negative (Neg); Influenza B virus by PCR Negative (Neg); RSV by PCR Negative (Neg); SARS CoV2 RNA(COVID-19) Ceph NEGATIVE (Negative)
[2023-04-10] MEDS ORDERED: NovoLIN-R INSULIN PER UNIT CHARGE IV STA ×2 (20:41→22:10)
--- NOTE | 2023-04-10 21:57 | History & Physical Report ---
Date of Service April 10, 2023 Assessment & Plan (1) Anaplasmosis: Plan: 67-year-old male with past medical significant for dyslipidemia, reported chronic gout, diabetes, dyspnea,, seasonal allergies, hypertension, metastatic castration sensitive adenocarcinoma prostate, presents with fevers and flulike symptoms. 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 Anaplasmosis Having high fevers Leukopenia and thrombocytopenia His platelets were 186 on 2022 Started on IV doxycycline Will also check Lyme screen IV fluids Will monitor the response Possible UTI Received IV cefepime in the ER Will continue with IV Rocephin Will follow cultures NADIA Presented with creatinine 1.6 Holding lisinopril Avoid nephrotoxic agents Getting fluids Will follow repeat labs in a.m. Hyperglycemia History of diabetes Seems not on medications Will place on Lantus and insulin sliding scale Follow HbA1c levels Monitor blood sugars Hyponatremia Possible pseudohyponatremia Getting fluids Will follow repeat labs History of metastatic castration sensitive adenocarcinoma prostate On apalutamide and Lupron shots and Zometa Will hold apalutamide for now and check with heme-onc Dr. Skinner in a.m. Gout Allopurinol History of asthma Albuterol as needed Hypertension Coreg with holding parameters Holding lisinopril Will monitor Hyperlipidemia On statin DVT prophylaxis SCDs for now as patient has thrombocytopenia Disposition Med/telemetry Full code History of Present Illness Chief Complaint: Flulike illness Primary Care Provider: Isak August DO 67-year-old male with past medical significant for dyslipidemia, chronic gout, diabetes, dyspnea,, seasonal allergies, hypertension, metastatic castration sensitive adenocarcinoma prostate, presents with fevers and flulike symptoms. Patient had IV Zometa on last Friday. Generally after Zometa he feels sick for couple of days but he continued to feel sick and developed fever on Friday and total body aches. Having cough. [place] like breathing shallow.-Having temperature 103. and 104 F. Also having frequent urination and burning sensation with micturition. Poor appetite. As he was not getting better came to the ER. Denies chest pain. Has some sore throat. Currently resting comfortable hemoglobin stable. 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 Patient did not notice any tick bites but they live in area with a lot of ticks. Past medical history. As mentioned above Past surgical history. Prostate biopsy.. Social history. . Quit smoking . No alcohol use. No drug use. Family history. Brother has allergies. Asthma. Mother has arthritis. Diabetes. High cholesterol. Son has asthma. Allergies Allergy/AdvReac Type Severity Reaction Status Date / Time erythromycin base Allergy Intermediate SEE COMMENT Verified 01/20/22 00:07 Influenza Virus Vaccines AdvReac Severe SEVERE Verified 01/20/22 00:07 FLU-LIKE SYMPTOMS hydrochlorothiazide AdvReac Intermediate GOUT FLARE Verified 01/20/22 00:07 UP indomethacin AdvReac Intermediate OUT OF Verified 01/20/22 00:07 BODY FEELING Home Medications Medication Instructions Recorded Confirmed Type albuterol sulfate 90 mcg/actuation 2 puff inhalation Q4 PRN Shortness 04/10/23 04/10/23 History aerosol inhaler (Ventolin HFA) Of Breath Or Wheezing allopurinol 300 mg tablet 300 mg PO DAILY 04/10/23 04/10/23 History apalutamide 60 mg tablet (Erleada) 240 mg PO DAILY 04/10/23 04/10/23 History carvedilol 3.125 mg tablet 3.125 mg PO BID 04/10/23 04/10/23 History lisinopril 40 mg tablet 40 mg PO DAILY 04/10/23 04/10/23 History rosuvastatin 40 mg tablet 40 mg PO DAILY 04/10/23 04/10/23 History silodosin 8 mg capsule 8 mg PO DAILY 04/10/23 04/10/23 History Past Med/Surg History Medical History Hypercholesteremia Hypertension Family History Father , Passed age 59 Pancreatic cancer Mother No problems noted. Brother Prostate cancer active surveillance Grandfather (Paternal) Lung cancer Brother No problems noted. Daughter No problems noted. Daughter No problems noted. Son No problems noted. Social History Smoking Status: Former smoker Tobacco Type: Cigarettes and Smokeless Tobacco (Dip or Chew) Second Hand Exposure: Yes (parents smoked in home); Do You Dip or Chew Tobacco: No (Former); Hx Alcohol Use: Yes Hx Substance Use: No Preferred Language: Monegasque Communication Ability: Effective Visual Impairment: Limited Hearing Ability: Normal Medicaid Service Coordinator Required: No Beliefs That Will Affect Care: None marital status: marital status details: Rosalinda Current Living Situation: Spouse current occupational status: employed How many Children do You have: 3 Feels Safe at Home: Yes Childhood Exposure to Second-Hand Smoke: Yes (parents smoked in home) Diet: low salt caffeine: Yes (coffee) during the past year weight has: remained stable Dental Care, Regularly: No Assistive Devices: Denture - Upper, Denture - Lower and Glasses Assistive Devices Comment: Assistive devices present with pt. Review of Systems Review of Systems: All systems reviewed & are unremarkable except as noted in HPI & below Physical Exam Physical Exam: General- Not in distress Head- atraumatic Eyes- PERRL. ENT- oropharynx clear Neck- supple, no JVD. Lungs- clear to auscultation no wheezing or crackles. Heart- regular rhythm; no murmur, no gallop. Abdomen- normal bowel sounds, soft, nontender, no distension Extremities- no pretibial edema, no erythema seen. Neuro- alert, oriented x 3; PERRL no facial palsy; no dysarthria; moves extremities Skin- warm & dry Results & Data Results & Data Vital Signs (Past 12 Hours) Vital Signs Temp Pulse Pulse Resp BP BP Pulse Ox 04/10/23 21:01 94 H 22 96 04/10/23 21:00 92 H 23 121/69 97 04/10/23 20:30 95 H 18 144/114 H 95 04/10/23 20:15 79 22 148/84 H 94 04/10/23 20:00 17 123/102 H 95 04/10/23 20:00 98 H 25 H 94 04/10/23 19:45 98 H 17 147/82 H 96 04/10/23 19:30 96 H 22 129/78 96 04/10/23 19:23 99 H 21 97 04/10/23 19:12 97 H 24 107/72 93 04/10/23 19:12 107/72 04/10/23 19:10 96 H 21 96 04/10/23 19:00 101 H 19 93 04/10/23 18:51 104 H 23 93 04/10/23 18:50 104 H 04/10/23 18:40 105 H 18 119/89 92 04/10/23 18:39 93 04/10/23 18:32 37.4 C 109 H 22 77/52 L 93 O2 Del Method 04/10/23 21:01 04/10/23 21:00 04/10/23 20:30 04/10/23 20:15 04/10/23 20:00 04/10/23 20:00 04/10/23 19:45 04/10/23 19:30 04/10/23 19:23 04/10/23 19:12 04/10/23 19:12 04/10/23 19:10 04/10/23 19:00 04/10/23 18:51 04/10/23 18:50 04/10/23 18:40 Room Air 04/10/23 18:39 Room Air 04/10/23 18:32 Room Air Diagnostic Findings Laboratory Results WBC 3.34 K/ul (4.8-10.8) L 04/10/23 18:47 RBC 4.57 M/uL (4.70-6.10) L 04/10/23 18:47 Hgb 13.4 g/dl (14.0-18.0) L 04/10/23 18:47 Hct 38.2 % (42.0-52.0) L 04/10/23 18:47 MCV 83.6 fL (80.0-100.0) 04/10/23 18:47 MCH 29.3 pg (25.0-34.0) 04/10/23 18:47 MCHC 35.1 g/dL (32.0-36.0) 04/10/23 18:47 RDW Std Deviation 37.8 fL (36.4-46.3) 04/10/23 18:47 RDW Coeff of Mounika 12.4 % (11.5-14.5) 04/10/23 18:47 Plt Count 64 K/uL (130-400) L 04/10/23 18:47 MPV 12.4 fL (9.4-12.4) 04/10/23 18:47 Immature Gran % (Auto) 0.6 % 04/10/23 18:47 Neut % (Auto) 73.6 % 04/10/23 18:47 Lymph % (Auto) 18.6 % 04/10/23 18:47 [place] % (Auto) 6.6 % 04/10/23 18:47 Eos % (Auto) 0.0 % 04/10/23 18:47 Baso % (Auto) 0.6 % 04/10/23 18:47 Neut # (Auto) 2.46 K/uL (1.40-6.50) 04/10/23 18:47 Lymph # (Auto) 0.62 K/uL (1.20-3.40) L 04/10/23 18:47 [place] # (Auto) 0.22 K/uL (0.11-0.59) 04/10/23 18:47 Eos # (Auto) 0.00 K/uL (0.00-0.50) 04/10/23 18:47 Baso # (Auto) 0.02 K/uL (0.00-0.20) 04/10/23 18:47 Immature Gran # (Auto) 0.02 K/uL (0.01-0.20) 04/10/23 18:47 Toxic Vacuolation 2+ 04/10/23 18:47 Platelet Estimate Decreased (Normal) L 04/10/23 18:47 Sodium 128 mmol/L (136-145) L 04/10/23 18:47 Potassium 3.9 mmol/L (3.5-5.1) 04/10/23 18:47 Chloride 94 mmol/L (98-107) L 04/10/23 18:47 Carbon Dioxide 23 mmol/L (21-32) 04/10/23 18:47 Anion Gap 11 (3-11) 04/10/23 18:47 BUN 35 mg/dl (6-23) H 04/10/23 18:47 Creatinine 1.62 mg/dl (0.6-1.4) H 04/10/23 18:47 Est Cr Clr Drug Dosing 58.9 ml/min 04/10/23 18:47 Est GFR ( Amer) 50.9 ml/min 04/10/23 18:47 Est GFR (Non-Af Amer) 43.9 ml/min 04/10/23 18:47 BUN/Creatinine Ratio 21.6 (10-20) H 04/10/23 18:47 Glucose 399 mg/dl (70-99(Fasting)) H* 04/10/23 18:47 POC Glucose 364 mg/dl (70-99) H* 04/10/23 21:34 Lactate 2.0 mmol/L (0.4-2.0) 04/10/23 18:47 Calcium 9.0 mg/dl (8.6-10.3) 04/10/23 18:47 Magnesium 2.3 mg/dl (1.7-2.4) 04/10/23 18:47 Total Bilirubin 0.8 mg/dl (0.2-1.0) 04/10/23 18:47 Direct Bilirubin 0.1 mg/dl (0-0.2) 04/10/23 18:47 AST 85 U/L (13-39) H 04/10/23 18:47 ALT 46 U/L (7-52) 04/10/23 18:47 Alkaline Phosphatase 50 U/L (34-104) 04/10/23 18:47 Total Protein 7.0 gm/dl (6.0-8.3) 04/10/23 18:47 Albumin 4.0 gm/dl (3.4-5.0) 04/10/23 18:47 Procalcitonin 0.80 ng/ml (0-0.5) H 04/10/23 18:47 Anaplasma Smear See Comment A 04/10/23 18:47 Anaplasma Comment Pos for Anaplasma 04/10/23 18:47 SARS-CoV-2 (PCR) NEGATIVE (Negative) 04/10/23 19:14 Influenza Type A (PCR) Negative (Neg) 04/10/23 19:14 Influenza Type B (PCR) Negative (Neg) 04/10/23 19:14 RSV (RT-PCR) Negative (Neg) 04/10/23 19:14 Impressions Chest X-Ray 04/10/23 18:39 XR chest 1V portable CLINICAL HISTORY: Sepsis TECHNIQUE: Single frontal radiograph of the chest was obtained. Comparison: Comparison is made to chest radiograph 01/19/2022 FINDINGS: No lines and tubes are seen. The cardiomediastinal silhouette is normal. The lungs are clear. No evidence of pleural effusion or pneumothorax. IMPRESSION: No acute abnormalities and in particular no radiographic evidence of pneumonia. ACT 112: Negative or not required by law. Electronically signed by: Boo Guzman M.D. 04/10/2023 7:32 PM Code Status & VTE Plan VTE Prophylaxis Plan VTE Prophylaxis will be ordered: Yes
[2023-04-10 22:02] LABS: Appearance Urine Turbid (Clear); Bacteria Urine Automated Negative (Negative); Bilirubin Urine Negative (Negative); Blood Urine Negative (Negative); Color Urine Yellow; Epithelial Cell Urine Auto >30 /lpf (0-5); Glucose Urine UA 3+ (Negative); Ketones Urine Trace (Negative); Leukocyte Esterase Urine Negative (Negative); Nitrite Urine Negative (Negative); Protein Urine 2+ (Negative); RBC Urine Automated 0-4 /hpf (0-4); Specific Gravity Urine 1.024 (1.000-1.030); Urobilinogen Urine Negative (Negative)
[2023-04-10 22:18] LABS: Amorphous Sediment Urine Present (None Prsent)
[2023-04-10] MEDS ORDERED: NITROGLYCERIN SL 0.4 MG/TAB TAB SL PRN (23:07)
[2023-04-10] MEDS ORDERED: GLUCOSE 40% GEL 15 GM TUBE PO PRN (23:07)
[2023-04-10] MEDS ORDERED: PHARMACY GLYCEMIC MGMT CONSULT PRN (23:07)
[2023-04-10] MEDS ORDERED: CARBOHYDRATES FOR HYPOGLYCEMIA PO PRN (23:07)
[2023-04-10] MEDS ORDERED: GLUCOSE 10 TAB/TUBE PO PRN (23:07)
[2023-04-10] MEDS ORDERED: ALBUTEROL HFA 8 GM INHALER INH PRN (23:07)
[2023-04-10] MEDS ORDERED: GLUCAGON FOR INJ 1 MG VIAL SQ PRN (23:07)
[2023-04-10] MEDS ORDERED: DEXTROSE 50% 50 ML SYRINGE IV PRN (23:07)
[2023-04-10] MEDS: ACETAMINOPHEN 325 MG TAB PO PRN (23:27)
[2023-04-10] MEDS ORDERED: LANTUS PER UNIT CHARGE SQ STA (23:41)
[2023-04-10] MEDS: carvediloL 3.125 MG TAB PO SCH (23:51)
[2023-04-11] MEDS: INSULIN ASPART PER UNIT CHARGE SC SCH ×6 (00:25→21:21)
[2023-04-11] MEDS: SODIUM CHLORIDE 0.9% 1,000 ML IV SCH ×2 (00:26→10:37)
[2023-04-11] MEDS ORDERED: KETOROLAC 30 MG/ML VIAL IV ONE (00:43)
[2023-04-11] MEDS ORDERED: KETOROLAC TROMETHAMINE 15 MG/ML VIAL IV ONE (00:44)
[2023-04-11] MEDS ORDERED: NovoLIN-R INSULIN PER UNIT CHARGE IV STA (03:48)
[2023-04-11 04:46] LABS: Hematocrit (blood only) 32.2 % (42.0-52.0); Hemoglobin 11.4 g/dl (14.0-18.0); Mean Corpuscular Hemoglobin 29.5 pg (25.0-34.0); Mean Corpuscular Hgb Conc 35.4 g/dL (32.0-36.0); Mean Corpuscular Volume 83.2 fL (80.0-100.0); Mean Platelet Volume 12.1 fL (9.4-12.4); Platelet Count 55 K/uL (130-400); RDW Coefficient of Variation 12.5 % (11.5-14.5); Red Blood Count 3.87 M/uL (4.70-6.10); White Blood Count 2.54 K/ul (4.8-10.8)
[2023-04-11 04:58] LABS: BUN Creatinine Ratio 25.3 (10-20); Calcium 7.9 mg/dl (8.6-10.3); Creatinine Clr Calc Pharmacy 60.4 ml/min; Est GFR (African American) 52.4 ml/min; Est GFR (Non-African American) 45.2 ml/min; Magnesium 2.2 mg/dl (1.7-2.4); Potassium 3.5 mmol/L (3.5-5.1)
[2023-04-11] MEDS: DOXYCYCLINE HYCLATE 100 MG in DEXTROSE 5% MINI-B 100 ML IV SCH ×2 (05:10→19:10)
[2023-04-11 05:11] LABS: Basophils # (auto) 0.02 K/uL (0.00-0.20); Basophils % (auto) 0.8 %; Immature Granulocytes # (auto) 0.01 K/uL (0.01-0.20); Immature Granulocytes % (auto) 0.4 %; Lymphocytes # (auto) 0.64 K/uL (1.20-3.40); Lymphocytes % (auto) 25.2 %; Monocytes # (auto) 0.22 K/uL (0.11-0.59); Monocytes % (auto) 8.7 %; Neutrophils # (auto) 1.65 K/uL (1.40-6.50); Neutrophils % (auto) 64.9 %; Toxic Vacuolation 1+
[2023-04-11 05:27] LABS: Lyme Ab IgG w/WB Rflx Negative (Negative); Lyme Ab IgM w/WB Rflx Negative (Negative)
[2023-04-11 07:36] LABS: Estimated Average Glucose 275 mg/dl; Hemoglobin A1C 11.2 % (4.5-5.6)
[2023-04-11] MEDS ORDERED: LANTUS PER UNIT CHARGE SQ ONE (09:00)
--- NOTE | 2023-04-11 09:25 | Electrocardiogram Report ---
Test Reason : Blood Pressure : / mmHG Vent. Rate : 096 BPM Atrial Rate : 096 BPM P-R Int : 152 ms QRS Dur : 098 ms QT Int : 378 ms P-R-T Axes : 038 028 045 degrees QTc Int : 477 ms Normal sinus rhythm Low voltage QRS Poor R wave progression, consider anterior HI vs. lead placement vs. LVH Abnormal ECG When compared with ECG of 19-JAN-2022 23:33, No significant change was found Confirmed by Daniel Dailey ([id number]) on 04/11/2023 9:25:26 AM Referred By: REFERRED SELF Confirmed By:Daniel Dailey
[2023-04-11] MEDS ORDERED: cefTRIAXone SODIUM 2000MG/50ML D5W IV ONE ×2 (09:32→09:44)
[2023-04-11] MEDS: cefTRIAXone SODIUM 2,000 MG in DEXTROSE 5 % MINI-B 50 ML IV SCH (09:49)
[2023-04-11] MEDS: ROSUVASTATIN CALCIUM 20 MG TAB PO SCH (10:28)
[2023-04-11] MEDS: TAMSULOSIN HCL 0.4 MG CAP PO SCH (10:28)
[2023-04-11] MEDS: allopurinoL 300 MG TAB PO SCH (10:28)
[2023-04-11] MEDS: carvediloL 3.125 MG TAB PO SCH ×2 (10:37→22:42)
--- NOTE | 2023-04-11 14:27 | Pharmacy Report ---
Pharmacy Glycemic Short Note 2 - Date of Service April 11, 2023 - Glycemic Short BSG Results (Last 24 hours): 04/10/23 04/10/23 04/10/23 18:47 20:09 21:34 Glucose 399 H* POC Glucose 398 H* 364 H* 04/10/23 04/10/23 04/11/23 22:07 23:54 02:30 Glucose POC Glucose 361 H* 367 H* 333 H* 04/11/23 04/11/23 04/11/23 03:43 04:33 04:56 Glucose 290 H POC Glucose 310 H* 254 H 04/11/23 04/11/23 04/11/23 06:00 07:16 11:09 Glucose POC Glucose 256 H 266 H 256 H OUTPATIENT ANTIDIABETIC REGIMEN: * N/A * HbA1C = 11.2% (04/11/23) ASSESSMENT: * Mr Roy is a 67 y/o M with a PMH of T2DM who presents with possible anaplasmosis and UTI. * BSGs on presentation were 398 for which patient received 10 units of IV insulin and 15 units of basal * Overnight, BSGs were 367-310 for which patient received an additional 17 units of Novolog and 10 units IV. * Fasting today is 256 mg/dL. Will start with Lantus 20 units BID (weight-based stress of 2/3) with lower dose for BSG < 180 mg/dL. * Novolog weight-based stress of 2/3. PLAN FOR INPATIENT GLYCEMIC CONTROL: * Basal insulin * Lantus 20 units SQ BID (15 units if BSG < 180 mg/dL) * Bolus insulin * NovoLog per scale ACHS or Q6hrs while NPO * Goal Range: Low 110 mg/dL - High 140 mg/dL * Correction Factor: 25 mg/dL/unit * Nutritional / Prandial insulin per carb ratio of 1 unit per 7 grams CHO consumed
--- NOTE | 2023-04-11 15:19 | Hospitalist Progress Note ---
Date of Service April 11, 2023 Assessment & Plan (1) Anaplasmosis: Plan: 67-year-old male with past medical significant for dyslipidemia, reported chronic gout, diabetes, dyspnea,, seasonal allergies, hypertension, metastatic castration sensitive adenocarcinoma prostate, presents with fevers and flulike symptoms. 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 Anaplasmosis Pancytopenia Patient presented with fever and flulike syndrome. 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 Platelet count of 55,000 His platelets were 186 on 2022 Lyme screen negative LDH elevated Total bilirubin within normal limits. AST elevated Urine culture negative Blood culture pending Started on IV doxycycline Babesiosis DNR PCR sent Await confirmatory test for Anaplasma. Also await evaluation of peripheral blood smear Possible UTI Received IV cefepime in the ER Will continue with IV Rocephin Urine culture negative Will DC IV Rocephin if blood culture is negative for 48 hours NADIA, likely prerenal Presented with creatinine 1.6 Holding lisinopril Avoid nephrotoxic agents Was given IV fluids Hyperglycemia History of type II diabetes Seems not on medications Will place on Lantus and insulin sliding scale HbA1c of 11.2 Hyponatremia Possible pseudohyponatremia Improved with hydration. History of metastatic castration sensitive adenocarcinoma prostate On apalutamide and Lupron shots and Zometa Gout Allopurinol History of asthma Albuterol as needed Hypertension Coreg with holding parameters Holding lisinopril Will monitor Hyperlipidemia On statin DVT prophylaxis SCDs for now as patient has thrombocytopenia Disposition: Patient hospitalized for anaplasmosis and acute kidney injury. Hospitalized for need of IV hydration and IV antibiotics. He will also need closer monitoring for pancytopenia. Workup is still pending. Time spent evaluating patient, direct bedside care, chart review, placing orders, interpretation of diagnostic studies, discussion with consultants, patient, and family members, as well as other required patient management activities is 50 minutes Please note the above document was generated using voice recognition software. It may contain grammatical, syntax or spelling errors. Any formal questions or concerns about the content, text or information contained within the body of this dictation should be directly addressed to the provider for clarification Admission and Anticipated Discharge Date Admission Date: April 10, 2023 Subjective Patient seen and examined at bedside. He reports that he is feeling slightly better compared to yesterday. No longer having fever or chills. Review of Systems Review of Systems: All systems reviewed & are unremarkable except as noted in Subjective Physical Exam Physical Exam: General- Not in distress Lungs- clear to auscultation no wheezing or crackles. Heart- regular rhythm; no murmur, no gallop. Abdomen- normal bowel sounds, soft, nontender, no distension Extremities- no pretibial edema, no erythema seen. Neuro- alert, oriented x 3; PERRL no facial palsy; no dysarthria; moves extremities Skin- warm & dry Results & Data Results & Data Vital Signs (Past 12 Hours) Vital Signs Temp Pulse Pulse Resp BP Pulse Ox O2 Del Method 04/11/23 14:42 91 H 04/11/23 10:35 87 24 116/68 98 Room Air 04/11/23 07:00 84 04/11/23 06:56 36.5 C 04/11/23 06:03 37.1 C 85 18 113/77 96 Room Air 04/11/23 04:00 87 19 107/64 95 Room Air Laboratory Results Laboratory Results WBC 2.54 K/ul (4.8-10.8) L 04/11/23 04:33 RBC 3.87 M/uL (4.70-6.10) L 04/11/23 04:33 Hgb 11.4 g/dl (14.0-18.0) L 04/11/23 04:33 Hct 32.2 % (42.0-52.0) L 04/11/23 04:33 MCV 83.2 fL (80.0-100.0) 04/11/23 04:33 MCH 29.5 pg (25.0-34.0) 04/11/23 04:33 MCHC 35.4 g/dL (32.0-36.0) 04/11/23 04:33 RDW Std Deviation 38.0 fL (36.4-46.3) 04/11/23 04:33 RDW Coeff of Mounika 12.5 % (11.5-14.5) 04/11/23 04:33 Plt Count 55 K/uL (130-400) L 04/11/23 04:33 MPV 12.1 fL (9.4-12.4) 04/11/23 04:33 Immature Gran % (Auto) 0.4 % 04/11/23 04:33 Neut % (Auto) 64.9 % 04/11/23 04:33 Lymph % (Auto) 25.2 % 04/11/23 04:33 [place] % (Auto) 8.7 % 04/11/23 04:33 Eos % (Auto) 0.0 % 04/11/23 04:33 Baso % (Auto) 0.8 % 04/11/23 04:33 Neut # (Auto) 1.65 K/uL (1.40-6.50) 04/11/23 04:33 Lymph # (Auto) 0.64 K/uL (1.20-3.40) L 04/11/23 04:33 [place] # (Auto) 0.22 K/uL (0.11-0.59) 04/11/23 04:33 Eos # (Auto) 0.00 K/uL (0.00-0.50) 04/11/23 04:33 Baso # (Auto) 0.02 K/uL (0.00-0.20) 04/11/23 04:33 Immature Gran # (Auto) 0.01 K/uL (0.01-0.20) 04/11/23 04:33 Toxic Vacuolation 1+ 04/11/23 04:33 Platelet Estimate Decreased (Normal) L 04/10/23 18:47 Peripher Smr Path Cons 04/10/23 18:47 Sodium 133 mmol/L (136-145) L 04/11/23 04:33 Potassium 3.5 mmol/L (3.5-5.1) 04/11/23 04:33 Chloride 102 mmol/L (98-107) 04/11/23 04:33 Carbon Dioxide 23 mmol/L (21-32) 04/11/23 04:33 Anion Gap 8 (3-11) 04/11/23 04:33 BUN 40 mg/dl (6-23) H 04/11/23 04:33 Creatinine 1.58 mg/dl (0.6-1.4) H 04/11/23 04:33 Est Cr Clr Drug Dosing 60.4 ml/min 04/11/23 04:33 Est GFR ( Amer) 52.4 ml/min 04/11/23 04:33 Est GFR (Non-Af Amer) 45.2 ml/min 04/11/23 04:33 BUN/Creatinine Ratio 25.3 (10-20) H 04/11/23 04:33 Glucose 290 mg/dl (70-99(Fasting)) H 04/11/23 04:33 POC Glucose 256 mg/dl (70-99) H 04/11/23 11:09 Estimat Average Glucose 275 mg/dl 04/11/23 04:33 Hemoglobin A1c 11.2 % (4.5-5.6) H 04/11/23 04:33 Lactate 2.0 mmol/L (0.4-2.0) 04/10/23 18:47 Calcium 7.9 mg/dl (8.6-10.3) L 04/11/23 04:33 Magnesium 2.2 mg/dl (1.7-2.4) 04/11/23 04:33 Total Bilirubin 0.8 mg/dl (0.2-1.0) 04/10/23 18:47 Direct Bilirubin 0.1 mg/dl (0-0.2) 04/10/23 18:47 AST 85 U/L (13-39) H 04/10/23 18:47 ALT 46 U/L (7-52) 04/10/23 18:47 Alkaline Phosphatase 50 U/L (34-104) 04/10/23 18:47 Lactate Dehydrogenase 531 U/L (86-244) H 04/11/23 08:09 Total Protein 7.0 gm/dl (6.0-8.3) 04/10/23 18:47 Albumin 4.0 gm/dl (3.4-5.0) 04/10/23 18:47 Procalcitonin 0.80 ng/ml (0-0.5) H 04/10/23 18:47 Urine Color Yellow 04/10/23 21:38 Urine Appearance Turbid (Clear) A 04/10/23 21:38 Urine pH 5.0 (4.5-7.5) 04/10/23 21:38 Ur Specific [place] 1.024 (1.000-1.030) 04/10/23 21:38 Urine Protein 2+ (Negative) H 04/10/23 21:38 Urine Glucose (UA) 3+ (Negative) H 04/10/23 21:38 Urine Ketones Trace (Negative) H 04/10/23 21:38 Urine Blood Negative (Negative) 04/10/23 21:38 Urine Nitrite Negative (Negative) 04/10/23 21:38 Urine Bilirubin Negative (Negative) 04/10/23 21:38 Urine Urobilinogen Negative (Negative) 04/10/23 21:38 Ur Leukocyte Esterase Negative (Negative) 04/10/23 21:38 Urine WBC (Auto) 10-30 /hpf (0-5) H 04/10/23 21:38 Urine RBC (Auto) 0-4 /hpf (0-4) 04/10/23 21:38 U Hyaline Cast (Auto) 5-10 /lpf (0-5) H 04/10/23 21:38 U Epithel Cells (Auto) >30 /lpf (0-5) H 04/10/23 21:38 Urine Bacteria (Auto) Negative (Negative) 04/10/23 21:38 Ur Renal Epithelial Cell 5-10 /lpf (0-5) H 04/10/23 21:38 Amorphous Sediment Present (None Prsent) A 04/10/23 21:38 Urine Yeast Not Reportable 04/10/23 21:38 Anaplasma Smear See Comment A 04/10/23 18:47 Anaplasma Comment Pos for Anaplasma 04/10/23 18:47 Lyme Disease IgG Ab Negative (Negative) 04/11/23 04:33 Lyme Disease IgM Ab Negative (Negative) 04/11/23 04:33 SARS-CoV-2 (PCR) NEGATIVE (Negative) 04/10/23 19:14 Influenza Type A (PCR) Negative (Neg) 04/10/23 19:14 Influenza Type B (PCR) Negative (Neg) 04/10/23 19:14 RSV (RT-PCR) Negative (Neg) 04/10/23 19:14 Impressions Chest X-Ray 04/10/23 18:39 XR chest 1V portable CLINICAL HISTORY: Sepsis TECHNIQUE: Single frontal radiograph of the chest was obtained. Comparison: Comparison is made to chest radiograph 01/19/2022 FINDINGS: No lines and tubes are seen. The cardiomediastinal silhouette is normal. The lungs are clear. No evidence of pleural effusion or pneumothorax. IMPRESSION: No acute abnormalities and in particular no radiographic evidence of pneumonia. ACT 112: Negative or not required by law. Electronically signed by: Boo Guzman M.D. 04/10/2023 7:32 PM
[2023-04-11] MEDS: ACETAMINOPHEN 325 MG TAB PO PRN (15:48)
[2023-04-11] MEDS ORDERED: LANTUS PER UNIT CHARGE SQ SCH (21:00)
[2023-04-12] MEDS: DOXYCYCLINE HYCLATE 100 MG in DEXTROSE 5% MINI-B 100 ML IV SCH (05:57)
[2023-04-12 08:22] LABS: Hemoglobin 10.7 g/dl (14.0-18.0); Mean Corpuscular Hemoglobin 29.3 pg (25.0-34.0); Mean Corpuscular Hgb Conc 34.5 g/dL (32.0-36.0); Mean Corpuscular Volume 84.9 fL (80.0-100.0); Mean Platelet Volume 12.7 fL (9.4-12.4); Platelet Count 66 K/uL (130-400); RDW Coefficient of Variation 12.7 % (11.5-14.5); RDW Standard Deviation 39.2 fL (36.4-46.3); Red Blood Count 3.65 M/uL (4.70-6.10); White Blood Count 4.17 K/ul (4.8-10.8)
[2023-04-12 08:43] LABS: Albumin Globulin Ratio 1.4 (0.9-2); Albumin Level 3.2 gm/dl (3.4-5.0); BUN Creatinine Ratio 25.2 (10-20); Bilirubin,Total 0.5 mg/dl (0.2-1.0); Calcium 7.4 mg/dl (8.6-10.3); Creatinine Clr Calc Pharmacy 79.9 ml/min; Est GFR (African American) 73.9 ml/min; Est GFR (Non-African American) 63.7 ml/min; Globulin 2.3 gm/dl (2.5-4.0); Potassium 3.3 mmol/L (3.5-5.1); Total Protein 5.5 gm/dl (6.0-8.3)
[2023-04-12] MEDS: INSULIN ASPART PER UNIT CHARGE SC SCH ×4 (08:43→21:46)
[2023-04-12] MEDS: LANTUS PER UNIT CHARGE SQ SCH ×2 (08:45→21:47)
[2023-04-12 09:09] LABS: Basophils # (auto) 0.01 K/uL (0.00-0.20); Basophils % (auto) 0.2 %; Eosinophils # (auto) 0.05 K/uL (0.00-0.50); Eosinophils % (auto) 1.2 %; Immature Granulocytes # (auto) 0.01 K/uL (0.01-0.20); Immature Granulocytes % (auto) 0.2 %; Lymphocytes # (auto) 1.72 K/uL (1.20-3.40); Lymphocytes % (auto) 41.2 %; Monocytes # (auto) 0.38 K/uL (0.11-0.59); Monocytes % (auto) 9.1 %; Neutrophils % (auto) 48.1 %
[2023-04-12] MEDS: ROSUVASTATIN CALCIUM 20 MG TAB PO SCH (10:13)
[2023-04-12] MEDS: allopurinoL 300 MG TAB PO SCH (10:13)
[2023-04-12] MEDS: carvediloL 3.125 MG TAB PO SCH ×2 (10:13→21:46)
[2023-04-12] MEDS: TAMSULOSIN HCL 0.4 MG CAP PO SCH (10:13)
[2023-04-12] MEDS: cefTRIAXone SODIUM 2,000 MG in DEXTROSE 5 % MINI-B 50 ML IV SCH (10:14)
[2023-04-12] MEDS: APALUTAMIDE 60 MG PO SCH (10:59)
[2023-04-12] MEDS ORDERED: POTASSIUM CHLORIDE CRTAB 20 MEQ TABCR PO STA (11:28)
--- NOTE | 2023-04-12 11:32 | Hospitalist Progress Note ---
Date of Service April 12, 2023 Assessment & Plan (1) Anaplasmosis: Plan: 67-year-old male with past medical significant for dyslipidemia, reported chronic gout, diabetes, dyspnea,, seasonal allergies, hypertension, metastatic castration sensitive adenocarcinoma prostate, presents with fevers and flulike symptoms. 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 Anaplasmosis Pancytopenia Patient presented with fever and flulike syndrome. 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 His platelets were 186 on 2022 Lyme screen negative LDH elevated Total bilirubin within normal limits. AST elevated Urine culture negative Blood culture no growth till date. Started on IV doxycycline. Continue on ceftriaxone till blood cultures negative for 48 hours Babesiosis DNR PCR sent Await confirmatory test for Anaplasma. Also await evaluation of peripheral blood smear Possible UTI, rule out Received IV cefepime in the ER Will continue with IV Rocephin Urine culture negative Will DC IV Rocephin if blood culture is negative for 48 hours NADIA, likely prerenal Presented with creatinine 1.6 Holding lisinopril Avoid nephrotoxic agents Was given IV fluids Lisinopril coming down Hyperglycemia History of type II diabetes Seems not on medications Will place on Lantus and insulin sliding scale HbA1c of 11.2 senior health educator discussed with patient. He is interested in insulin. Hyponatremia, resolved Possible pseudohyponatremia Improved with hydration. History of metastatic castration sensitive adenocarcinoma prostate On apalutamide and Lupron shots and Zometa Gout Allopurinol History of asthma Albuterol as needed Hypertension Coreg with holding parameters Holding lisinopril Will monitor Hyperlipidemia On statin DVT prophylaxis SCDs for now as patient has thrombocytopenia Disposition: Patient hospitalized for anaplasmosis and acute kidney injury. Hospitalized for need of IV hydration and IV antibiotics. He will also need closer monitoring for pancytopenia. Workup is still pending. Time spent evaluating patient, direct bedside care, chart review, placing orders, interpretation of diagnostic studies, discussion with consultants, patient, and family members, as well as other required patient management activities is 50 minutes Please note the above document was generated using voice recognition software. It may contain grammatical, syntax or spelling errors. Any formal questions or concerns about the content, text or information contained within the body of this dictation should be directly addressed to the provider for clarification Admission and Anticipated Discharge Date Admission Date: April 10, 2023 Subjective Patient seen and examined at bedside. He reports that he is feeling better. He is ambulating on the hallways without any difficulty. Review of Systems Review of Systems: All systems reviewed & are unremarkable except as noted in Subjective Physical Exam Physical Exam: General- Not in distress Lungs- clear to auscultation no wheezing or crackles. Heart- regular rhythm; no murmur, no gallop. Abdomen- normal bowel sounds, soft, nontender, no distension Extremities- no pretibial edema, no erythema seen. Neuro- alert, oriented x 3; PERRL no facial palsy; no dysarthria; moves extremities Skin- warm & dry Results & Data Results & Data Vital Signs (Past 12 Hours) Vital Signs Temp Pulse Pulse Resp BP Pulse Ox O2 Del Method 04/12/23 08:00 37.3 C 87 18 104/69 94 Room Air 04/12/23 03:12 36.8 C 89 18 98/61 L 95 Room Air 04/12/23 00:25 86 Laboratory Results Laboratory Results WBC 4.17 K/ul (4.8-10.8) L 04/12/23 06:59 RBC 3.65 M/uL (4.70-6.10) L 04/12/23 06:59 Hgb 10.7 g/dl (14.0-18.0) L 04/12/23 06:59 Hct 31.0 % (42.0-52.0) L 04/12/23 06:59 MCV 84.9 fL (80.0-100.0) 04/12/23 06:59 MCH 29.3 pg (25.0-34.0) 04/12/23 06:59 MCHC 34.5 g/dL (32.0-36.0) 04/12/23 06:59 RDW Std Deviation 39.2 fL (36.4-46.3) 04/12/23 06:59 RDW Coeff of Mounika 12.7 % (11.5-14.5) 04/12/23 06:59 Plt Count 66 K/uL (130-400) L 04/12/23 06:59 MPV 12.7 fL (9.4-12.4) H 04/12/23 06:59 Immature Gran % (Auto) 0.2 % 04/12/23 06:59 Neut % (Auto) 48.1 % 04/12/23 06:59 Lymph % (Auto) 41.2 % 04/12/23 06:59 [place] % (Auto) 9.1 % 04/12/23 06:59 Eos % (Auto) 1.2 % 04/12/23 06:59 Baso % (Auto) 0.2 % 04/12/23 06:59 Neut # (Auto) 2.00 K/uL (1.40-6.50) 04/12/23 06:59 Lymph # (Auto) 1.72 K/uL (1.20-3.40) 04/12/23 06:59 [place] # (Auto) 0.38 K/uL (0.11-0.59) 04/12/23 06:59 Eos # (Auto) 0.05 K/uL (0.00-0.50) 04/12/23 06:59 Baso # (Auto) 0.01 K/uL (0.00-0.20) 04/12/23 06:59 Immature Gran # (Auto) 0.01 K/uL (0.01-0.20) 04/12/23 06:59 Toxic Vacuolation 1+ 04/11/23 04:33 Platelet Estimate Decreased (Normal) L 04/10/23 18:47 Peripher Smr Path Cons 04/10/23 18:47 Sodium 136 mmol/L (136-145) 04/12/23 06:59 Potassium 3.3 mmol/L (3.5-5.1) L 04/12/23 06:59 Chloride 104 mmol/L (98-107) 04/12/23 06:59 Carbon Dioxide 25 mmol/L (21-32) 04/12/23 06:59 Anion Gap 7 (3-11) 04/12/23 06:59 BUN 30 mg/dl (6-23) H 04/12/23 06:59 Creatinine 1.19 mg/dl (0.6-1.4) D 04/12/23 06:59 Est Cr Clr Drug Dosing 79.9 ml/min 04/12/23 06:59 Est GFR ( Amer) 73.9 ml/min 04/12/23 06:59 Est GFR (Non-Af Amer) 63.7 ml/min 04/12/23 06:59 BUN/Creatinine Ratio 25.2 (10-20) H 04/12/23 06:59 Glucose 186 mg/dl (70-99(Fasting)) H 04/12/23 06:59 POC Glucose 207 mg/dl (70-99) H 04/12/23 08:22 Estimat Average Glucose 275 mg/dl 04/11/23 04:33 Hemoglobin A1c 11.2 % (4.5-5.6) H 04/11/23 04:33 Lactate 2.0 mmol/L (0.4-2.0) 04/10/23 18:47 Calcium 7.4 mg/dl (8.6-10.3) L 04/12/23 06:59 Magnesium 2.2 mg/dl (1.7-2.4) 04/11/23 04:33 Total Bilirubin 0.5 mg/dl (0.2-1.0) 04/12/23 06:59 Direct Bilirubin 0.1 mg/dl (0-0.2) 04/10/23 18:47 AST 65 U/L (13-39) H 04/12/23 06:59 ALT 41 U/L (7-52) 04/12/23 06:59 Alkaline Phosphatase 39 U/L (34-104) 04/12/23 06:59 Lactate Dehydrogenase 531 U/L (86-244) H 04/11/23 08:09 Total Protein 5.5 gm/dl (6.0-8.3) L D 04/12/23 06:59 Albumin 3.2 gm/dl (3.4-5.0) L 04/12/23 06:59 Globulin 2.3 gm/dl (2.5-4.0) L 04/12/23 06:59 Albumin/Globulin Ratio 1.4 (0.9-2) 04/12/23 06:59 Procalcitonin 0.80 ng/ml (0-0.5) H 04/10/23 18:47 Urine Color Yellow 04/10/23 21:38 Urine Appearance Turbid (Clear) A 04/10/23 21:38 Urine pH 5.0 (4.5-7.5) 04/10/23 21:38 Ur Specific [place] 1.024 (1.000-1.030) 04/10/23 21:38 Urine Protein 2+ (Negative) H 04/10/23 21:38 Urine Glucose (UA) 3+ (Negative) H 04/10/23 21:38 Urine Ketones Trace (Negative) H 04/10/23 21:38 Urine Blood Negative (Negative) 04/10/23 21:38 Urine Nitrite Negative (Negative) 04/10/23 21:38 Urine Bilirubin Negative (Negative) 04/10/23 21:38 Urine Urobilinogen Negative (Negative) 04/10/23 21:38 Ur Leukocyte Esterase Negative (Negative) 04/10/23 21:38 Urine WBC (Auto) 10-30 /hpf (0-5) H 04/10/23 21:38 Urine RBC (Auto) 0-4 /hpf (0-4) 04/10/23 21:38 U Hyaline Cast (Auto) 5-10 /lpf (0-5) H 04/10/23 21:38 U Epithel Cells (Auto) >30 /lpf (0-5) H 04/10/23 21:38 Urine Bacteria (Auto) Negative (Negative) 04/10/23 21:38 Ur Renal Epithelial Cell 5-10 /lpf (0-5) H 04/10/23 21:38 Amorphous Sediment Present (None Prsent) A 04/10/23 21:38 Urine Yeast Not Reportable 04/10/23 21:38 Anaplasma Smear See Comment A 04/10/23 18:47 Anaplasma Comment Pos for Anaplasma 04/10/23 18:47 Lyme Disease IgG Ab Negative (Negative) 04/11/23 04:33 Lyme Disease IgM Ab Negative (Negative) 04/11/23 04:33 SARS-CoV-2 (PCR) NEGATIVE (Negative) 04/10/23 19:14 Influenza Type A (PCR) Negative (Neg) 04/10/23 19:14 Influenza Type B (PCR) Negative (Neg) 04/10/23 19:14 RSV (RT-PCR) Negative (Neg) 04/10/23 19:14 Impressions Chest X-Ray 04/10/23 18:39 XR chest 1V portable CLINICAL HISTORY: Sepsis TECHNIQUE: Single frontal radiograph of the chest was obtained. Comparison: Comparison is made to chest radiograph 01/19/2022 FINDINGS: No lines and tubes are seen. The cardiomediastinal silhouette is normal. The lungs are clear. No evidence of pleural effusion or pneumothorax. IMPRESSION: No acute abnormalities and in particular no radiographic evidence of pneumonia. ACT 112: Negative or not required by law. Electronically signed by: Boo Guzman M.D. 04/10/2023 7:32 PM
[2023-04-12] MEDS ORDERED: ALUMINUM/MAGNESIUM SUSP 30 ML UDC PO STA (13:20)
[2023-04-12] MEDS: DOXYCYCLINE HYCLATE 100 MG CAP PO SCH (21:46)
[2023-04-13 06:49] LABS: Hematocrit (blood only) 31.3 % (42.0-52.0); Hemoglobin 10.8 g/dl (14.0-18.0); Mean Corpuscular Hemoglobin 29.2 pg (25.0-34.0); Mean Corpuscular Hgb Conc 34.5 g/dL (32.0-36.0); Mean Corpuscular Volume 84.6 fL (80.0-100.0); Mean Platelet Volume 11.8 fL (9.4-12.4); Platelet Count 91 K/uL (130-400); RDW Coefficient of Variation 12.5 % (11.5-14.5); RDW Standard Deviation 38.2 fL (36.4-46.3); White Blood Count 5.52 K/ul (4.8-10.8)
[2023-04-13 06:55] LABS: Albumin Globulin Ratio 1.5 (0.9-2); Albumin Level 3.3 gm/dl (3.4-5.0); BUN Creatinine Ratio 24.2 (10-20); Bilirubin,Total 0.5 mg/dl (0.2-1.0); Calcium 7.7 mg/dl (8.6-10.3); Creatinine Clr Calc Pharmacy 104.4 ml/min; Est GFR (African American) 102.1 ml/min; Est GFR (Non-African American) 88.1 ml/min; Globulin 2.2 gm/dl (2.5-4.0); Potassium 3.2 mmol/L (3.5-5.1); Total Protein 5.5 gm/dl (6.0-8.3)
[2023-04-13 06:59] LABS: Basophils # (auto) 0.04 K/uL (0.00-0.20); Basophils % (auto) 0.7 %; Eosinophils # (auto) 0.13 K/uL (0.00-0.50); Eosinophils % (auto) 2.4 %; Immature Granulocytes # (auto) 0.03 K/uL (0.01-0.20); Immature Granulocytes % (auto) 0.5 %; Lymphocytes # (auto) 2.39 K/uL (1.20-3.40); Lymphocytes % (auto) 43.3 %; Monocytes # (auto) 0.44 K/uL (0.11-0.59); Neutrophils # (auto) 2.49 K/uL (1.40-6.50); Neutrophils % (auto) 45.1 %
[2023-04-13] MEDS: ROSUVASTATIN CALCIUM 20 MG TAB PO SCH (08:06)
[2023-04-13] MEDS: allopurinoL 300 MG TAB PO SCH (08:06)
[2023-04-13] MEDS: DOXYCYCLINE HYCLATE 100 MG CAP PO SCH (08:06)
[2023-04-13] MEDS: carvediloL 3.125 MG TAB PO SCH (08:07)
[2023-04-13] MEDS: APALUTAMIDE 60 MG PO SCH (08:07)
[2023-04-13] MEDS: cefTRIAXone SODIUM 2,000 MG in DEXTROSE 5 % MINI-B 50 ML IV SCH (08:07)
[2023-04-13] MEDS: TAMSULOSIN HCL 0.4 MG CAP PO SCH (08:10)
[2023-04-13] MEDS: INSULIN ASPART PER UNIT CHARGE SC SCH (08:38)
[2023-04-13] MEDS ORDERED: LANTUS PER UNIT CHARGE SQ SCH (09:00)
--- NOTE | 2023-04-13 11:25 | Pharmacy Report ---
Pharmacy Glycemic Short Note 2 - Date of Service April 13, 2023 - Glycemic Short BSG Results (Last 24 hours): 04/12/23 04/12/23 04/12/23 12:11 17:20 20:02 Glucose POC Glucose 234 H 138 H 207 H 04/13/23 04/13/23 06:04 07:57 Glucose 105 H POC Glucose 137 H OUTPATIENT ANTIDIABETIC REGIMEN: * N/A * HbA1C = 11.2% (04/11/23) ASSESSMENT: 04/13: * Mikhail received 94 units of insulin yesterday, 50 basal + 44 bolus. BSGs were: [phone] mg/dL. * Fasting BSG was 137 mg/dL this AM. This is at goal but given significant improvement in fasting, afraid that patient will have fasting's below goal soon if current basal dose continues. Therefore, will empirically reduce basal by 10-15% today. * Novolog was tightened yesterday afternoon. Continue with these parameters for now. * Remains on Ceftriaxone and Doxycycline. 04/12: * Mr Roy is a 67 y/o M with a PMH of T2DM who presents with possible anaplasmosis and UTI. * BSGs on presentation were 398 for which patient received 10 units of IV insulin and 15 units of basal * Overnight, BSGs were 367-310 for which patient received an additional 17 units of Novolog and 10 units IV. * Fasting today is 256 mg/dL. Will start with Lantus 20 units BID (weight-based stress of 2/3) with lower dose for BSG < 180 mg/dL. * Novolog weight-based stress of 2/3. PLAN FOR INPATIENT GLYCEMIC CONTROL: * Basal insulin * Lantus 22 units SC BID * Bolus insulin * NovoLog per scale ACHS or Q6hrs while NPO * Goal Range: Low 110 mg/dL - High 140 mg/dL * Correction Factor: 15 mg/dL/unit * Nutritional / Prandial insulin per carb ratio of 1 unit per 5 grams CHO consumed
--- NOTE | 2023-04-13 14:03 | Discharge Summary ---
Date of Service April 13, 2023 Admission HPI Per Admitting Provider 67-year-old male with past medical significant for dyslipidemia, chronic gout, diabetes, dyspnea,, seasonal allergies, hypertension, metastatic castration sensitive adenocarcinoma prostate, presents with fevers and flulike symptoms. Patient had IV Zometa on last Friday. Generally after Zometa he feels sick for couple of days but he continued to feel sick and developed fever on Friday and total body aches. Having cough. [place] like breathing shallow.-Having temperature 103. and 104 F. Also having frequent urination and burning sensation with micturition. Poor appetite. As he was not getting better came to the ER. Denies chest pain. Has some sore throat. Currently resting comfortable hemoglobin stable. 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 Patient did not notice any tick bites but they live in area with a lot of ticks. Past medical history. As mentioned above Past surgical history. Prostate biopsy.. Social history. . Quit smoking 1980s. No alcohol use. No drug use. Family history. Brother has allergies. Asthma. Mother has arthritis. Diabetes. High cholesterol. Son has asthma. Admission Exam Per Admitting Provider General- Not in distress Head- atraumatic Eyes- PERRL. ENT- oropharynx clear Neck- supple, no JVD. Lungs- clear to auscultation no wheezing or crackles. Heart- regular rhythm; no murmur, no gallop. Abdomen- normal bowel sounds, soft, nontender, no distension Extremities- no pretibial edema, no erythema seen. Neuro- alert, oriented x 3; PERRL no facial palsy; no dysarthria; moves extremities Skin- warm & dry Principal Diagnosis Anaplasmosis Acute kidney injury Type 2 diabetes mellitus Discharge Exam General- Not in distress Lungs- clear to auscultation no wheezing or crackles. Heart- regular rhythm; no murmur, no gallop. Abdomen- normal bowel sounds, soft, nontender, no distension Extremities- no pretibial edema, no erythema seen. Neuro- alert, oriented x 3; PERRL no facial palsy; no dysarthria; moves extremities Skin- warm & dry Discharge Data Allergies Allergy/AdvReac Type Severity Reaction Status Date / Time erythromycin base Allergy Intermediate SEE COMMENT Verified 01/20/22 00:07 Influenza Virus Vaccines AdvReac Severe SEVERE Verified 01/20/22 00:07 FLU-LIKE SYMPTOMS hydrochlorothiazide AdvReac Intermediate GOUT FLARE Verified 01/20/22 00:07 UP indomethacin AdvReac Intermediate OUT OF Verified 01/20/22 00:07 BODY FEELING Consultations 04/10/23 20:03 ED Decision to Admit Stat Hospital Course (1) Anaplasmosis: 67-year-old male with past medical significant for dyslipidemia, reported chronic gout, diabetes, dyspnea,, seasonal allergies, hypertension, metastatic castration sensitive adenocarcinoma prostate, presents with fevers and flulike symptoms. 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 Anaplasmosis Pancytopenia Patient presented with fever and flulike syndrome. 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 His platelets were 186 on 2022 Lyme screen negative LDH elevated Total bilirubin within normal limits. AST elevated Urine culture negative Blood culture no growth till date. During the hospitalization, patient was given IV doxycycline. Patient's platelets improved along with WBC. He was feeling much better. Patient was discharged on p.o. doxycycline for 10 days. NADIA, likely prerenal Presented with creatinine 1.6 Resolved at discharge Hyperglycemia History of type II diabetes HbA1c of 11.2% Discharged on Metformin and lantus. Follow up with PCP and parent educator. Time spent evaluating patient, direct bedside care, chart review, placing orders, interpretation of diagnostic studies, discussion with consultants, patient, and family members, as well as other required patient management activities is 50 minutes Please note the above document was generated using voice recognition software. It may contain grammatical, syntax or spelling errors. Any formal questions or concerns about the content, text or information contained within the body of this dictation should be directly addressed to the provider for clarification Total Time Total Time Spent Total Time Spent (In Minutes): 60 Discharge Plan Discharge Items Patient Disposition: Home - Self-Care Reason For Visit: ANAPLASMOSIS, THROMBOCYTOPENIA Discharge Diagnosis: Anaplasmosis Uncontrolled type 2 diabetes mellitus Acute kidney injury Activity: Resume your previous activity Non-emergency contact: Primary Care Provider Call non-emergency contact if: you have any medication questions and your symptoms worsen Follow-up/Referrals: Isak August DO [Primary Care Provider] - Diet: Carb Consistent or DM2 Addtl Attending Provider Instructions: You were admitted to the hospital with flulike symptoms. The cause for it is anaplasmosis. It is a tick borne infection. You are prescribed doxycycline to be taken twice daily for 10 more days to complete the treatment course. The tick can cause other diseases like Lyme and babesiosis. Lyme test was negative. Babesiosis studies are still pending. Please follow-up with your primary care doctor regarding the results of the Babesiosis. There is different treatment regimen for babesiosis. You are also found to have type 2 diabetes mellitus. You are prescribed metformin 500 mg twice a day. Please take it after meal. You were also started on long acting insulin. Measure blood glucose as instructed by the parent educator every morning fasting. Please keep the record of the blood glucose level. You were started on 20 units of insulin once a day. If your fasting blood glucose is greater than 140 in the morning; increase the dose of insulin by 2 units every 2 days. You need to follow-up with your primary care doctor and parent educator. You might need additional insulin with meals in the future. Please follow a diabetic diet. Pending Studies at Discharge: Yes Studies:: Babesiosis Stand-Alone Forms: My [facility] Yours [place], Smoking Cessation Medications and DC Order Prescriptions: New doxycycline hyclate 100 mg Capsule 100 mg PO BID 10 Days Qty: 20 0RF metformin 500 mg tablet extended release 24 hr 500 mg PO BID Qty: 60 0RF (DME) OneTouch Verio test strips Strip See Rx Instructions .Route Qty: 100 0RF Rx Instructions: As directed (DME) lancets [OneTouch Delica Plus Lancet] 33 gauge misc See Rx Instructions .Route Qty: 100 0RF Rx Instructions: As directed insulin degludec [Tresiba FlexTouch U-100] 100 unit/mL (3 mL) insulin pen 20 unit subcut DAILY Qty: 15 0RF Continued carvedilol 3.125 mg tablet 3.125 mg PO BID allopurinol 300 mg tablet 300 mg PO DAILY albuterol sulfate [Ventolin HFA] 90 mcg/actuation HFA aerosol inhaler 2 puff INHALATION Q4 PRN (Reason: Shortness Of Breath Or Wheezing) lisinopril 40 mg tablet 40 mg PO DAILY rosuvastatin 40 mg tablet 40 mg PO DAILY silodosin 8 mg capsule 8 mg PO DAILY Erleada 60 mg tablet 240 mg PO DAILY Discharge Orders: Discharge Order (Routine); Ordered 04/13/23 Ordered By: Meek Ace Admission Data Admit Date/Time: 04/10/23 21:24 Attending Provider: Meek Ace Admjayleen Provider: Quentin Arrieta Primary Care Provider: Isak August Other Providers: Cecy Skinner Rajendra P. Other Interventions: Discharge Summary Assessment (RN) Last Done: 04/13/23 11:43
[2023-04-14 10:02] LABS: Babesia microti DNA Not Detected (Not Detected); Haptoglobin 89 mg/dL (43-212)
== END 2023-04-13 12:56 | disposition home or self-care (01) | DRG 868 ==
LOC: ED 18:23 → EDINP 21:24 → 2N 23:06